=== PATIENT | male | born 1970 | race Caucasian/White ===

== ENCOUNTER 2017-07-26 12:19 | Inpatient (IN) | payer MEDICARE, OTHER ==
[~2017-07-26] VITALS: Ht 182.9 cm; Wt 74.4 kg
[2017-07-26] MEDS ORDERED: SOD CHLORIDE 0.9% 1,000 ML IV STA (14:49)
[2017-07-26] MEDS ORDERED: ONDANSETRON 4 MG INJ IV STA (14:49)
[2017-07-26] MEDS ORDERED: HYDROmorphONE 1 MG/ML SYG IV STA ×2 (14:49→17:37)
[2017-07-26] MEDS ORDERED: BACL20TA PO (14:50)
[2017-07-26] MEDS ORDERED: GABA-526 PO (14:50)
[2017-07-26] MEDS ORDERED: TOLT2CAP6 PO (14:51)
[2017-07-26] MEDS ORDERED: CEFTRIAXONE 1 GM/50 ML (PMX) 50 ML IVPB ONE (15:00)
[2017-07-26] MEDS ORDERED: VANCOMYCIN 1 GM (PMX) 250 ML IVPB SCH (15:00)
[2017-07-26 15:38] LABS: BASOPHILS % 0.4 % (0.0-2.0); EOSINOPHILS # 0.3 10^3/ul (0.0-0.5); EOSINOPHILS % 2.5 % (0.0-7.0); HEMOGLOBIN 16.3 g/dl (14.0-18.0); LYMPHOCYTES % 18.4 % (15.0-51.0); MEAN CORPUSCULAR HEMOGLOBIN 32.3 pg (29.0-33.0); MEAN CORPUSCULAR HGB CONC 33.3 g/dl (32.0-37.0); MEAN PLATELET VOLUME 9.9 fl (7.4-10.4); MONOCYTE # 0.8 10^3/ul (0.3-0.9); MONOCYTES % 7.6 % (0.0-11.0); NEUTROPHILS % 70.7 % (39.0-77.0); PLATELET COUNT 271 10^3/UL (140-415); RED BLOOD COUNT 5.05 10^6/ul (4.70-6.10); RED CELL DISTRIBUTION WIDTH 13.9 % (11.5-14.5); WHITE BLOOD COUNT 10.9 10^3/ul (4.8-10.8)
[2017-07-26 15:56] LABS: ALBUMIN 3.5 g/dl (3.3-4.9); ALBUMIN/GLOBULIN RATIO 1.06; BILIRUBIN,INDIRECT 0.2 mg/dl (0-1.1); BILIRUBIN,TOTAL 0.2 mg/dl (0.2-1.3); CALCIUM 9.1 mg/dl (8.4-10.2); CREATININE 0.52 mg/dl (0.61-1.24); POTASSIUM 3.2 mmol/L (3.5-5.1); TOTAL PROTEIN 6.8 g/dl (6.1-8.1)
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
[2017-07-26] MEDS ORDERED: SOD CHLORIDE 0.9% 100 ML ONE (18:13)
[2017-07-26] MEDS ORDERED: IOHEXOL 300MG/ML 150 ML BTL ONE (18:13)
--- NOTE | 2017-07-26 19:04 | RADRPT ---
PROCEDURE: IV contrast enhanced CT examination of the pelvis. CLINICAL INDICATION: Buttock abscess. TECHNIQUE: IV contrast enhanced CT examination of the pelvis, with axial, sagittal and coronal ref ormatted images. CTDI: 5.72 and DLP: 195.66 COMPARISON: None FINDINGS: Soft tissue edema with possible phlegmon is seen over the dorsal aspect of the base of the left infe rior pubic ramus, with small osseous erosions suspected at the posterior inferior left pubic ramus, perhaps representing osteomyelitis. MRI examination may be of further use. Soft tissue lesion measur es 56 x 45 x 35 mm. Differential considerations for this lesion include early abscess. Early soft tissue breakdown over the dorsal aspect of the coccyx, without CT evidence of osteomyelit is. Early soft tissue based may also be present at the dorsal aspect of proximal left femur. Remaining osseous structures are without evident acute fracture dislocation. Mural thickening in the urinary bladder are may represent a degree of cystitis, with small amount of intraluminal air. IMPRESSION: 1. Question osteomyelitis at the posterior inferior left pubic ramus. 2. Possible phlegmon in the dorsal soft tissues at the posterior inferior left pubic ramus. 3. Differential considerations include early abscess. 4. Early soft tissue breakdown over the dorsal aspect of the coccyx, without CT evidence of osteomye litis. 5. MRI examination may be of further use. RPTAT: [facility]U Physician Juan Date Time Electronically viewed and signed by Physician Juan on 07/26/2017 19:03 RS/
[2017-07-26] MEDS ORDERED: LORAZEPAM 2 MG INJ IV PRN (19:30)
[2017-07-26] MEDS ORDERED: VANCOMYCIN IV PER PHARMACY XX SCH (19:30)
[2017-07-26] MEDS ORDERED: NITROGLYCERIN (SL) 0.4 MG TAB SL PRN (19:30)
[2017-07-26] MEDS ORDERED: DOCUSATE SODIUM 100 MG CAP PO PRN (19:30)
[2017-07-26] MEDS ORDERED: ALBUTEROL/IPRATROPIUM (NEB) 3 ML AMP HHN PRN (19:30)
[2017-07-26] MEDS ORDERED: NACL 0.9% 3 ML SYG IV SCH (19:30)
[2017-07-26] MEDS ORDERED: ACETAMINOPHEN 325 MG TAB PO PRN ×2 (19:30)
[2017-07-26] MEDS ORDERED: MAGNESIUM HYDROXIDE 30ML CUP PO PRN (19:30)
[2017-07-26] MEDS ORDERED: morphine 2 MG INJ IV PRN (19:30)
[2017-07-26] MEDS ORDERED: ONDANSETRON 4 MG INJ IV PRN ×2 (19:30)
[2017-07-26] MEDS ORDERED: hydrALAzine 20 MG INJ IV PRN (19:30)
[2017-07-26 20:05] LABS: INR 0.88; PARTIAL THROMBOPLASTIN TIME 31.5 Sec (25.0-35.0); PROTIME 11.9 Sec (12.2-14.2); PT RATIO 0.9
[2017-07-26 21:30] VITALS: TEMP 98.7
[2017-07-26] MEDS ORDERED: HYDROCODONE/APAP (5/325) TAB ONE (22:28)
[2017-07-26] MEDS: HYDROCODONE/APAP (5/325) TAB PO PRN (22:32)
[2017-07-26] MEDS: BACLOFEN 10 MG TAB PO SCH (22:32)
[2017-07-26] MEDS: GABAPENTIN 300 MG CAP PO SCH (22:32)
[2017-07-26] MEDS: AZTREONAM 2 GM in SOD CHLORIDE 0.9% 100 ML IVPB SCH (22:34)
[2017-07-26] MEDS: SOD CHLORIDE 0.9% 1,000 ML IV SCH (22:35)
[2017-07-27] MEDS ORDERED: PIPER-TAZO 3.375 GM IV (PMX) 100 ML IVPB SCH
[2017-07-27] MEDS: VANCOMYCIN 1 GM in NS 250 ML IVPB SCH ×4 (00:04→23:06)
[2017-07-27 00:17] VITALS: Ht 182.9 cm; Wt 74.4 kg
[2017-07-27 00:50] VITALS: BP 103/56; RESP 18
[2017-07-27] MEDS: HYDROmorphONE 1 MG/ML SYG IV PRN ×6 (01:36→23:06)
[2017-07-27 02:08] VITALS: BP 109/74; RESP 16
[2017-07-27] MEDS ORDERED: PENDING SANTYL ORDER FOR WOUND CARE XX PRN (03:00)
[2017-07-27] MEDS: HYDROCODONE/APAP (5/325) TAB PO PRN ×3 (04:44→17:37)
[2017-07-27] MEDS: AZTREONAM 2 GM in SOD CHLORIDE 0.9% 100 ML IVPB SCH ×3 (05:19→22:03)
[2017-07-27] MEDS: SOD CHLORIDE 0.9% 1,000 ML IV SCH ×2 (05:24→15:24)
[2017-07-27 05:34] LABS: BASOPHIL # 0.1 10^3/ul (0.0-0.1); BASOPHILS % 0.7 % (0.0-2.0); EOSINOPHILS # 0.3 10^3/ul (0.0-0.5); EOSINOPHILS % 4.6 % (0.0-7.0); HEMOGLOBIN 14.7 g/dl (14.0-18.0); LYMPHOCYTES # 1.9 10^3/ul (0.8-2.9); LYMPHOCYTES % 25.5 % (15.0-51.0); MEAN CORPUSCULAR VOLUME 100.2 fl (82.0-101.0); MEAN PLATELET VOLUME 10.4 fl (7.4-10.4); MONOCYTE # 0.6 10^3/ul (0.3-0.9); MONOCYTES % 7.9 % (0.0-11.0); PLATELET COUNT 254 10^3/UL (140-415); RED BLOOD COUNT 4.59 10^6/ul (4.70-6.10); RED CELL DISTRIBUTION WIDTH 13.9 % (11.5-14.5); WHITE BLOOD COUNT 7.3 10^3/ul (4.8-10.8)
[2017-07-27 05:51] LABS: CHOL/HDL RATIO 2.2 RATIO
[2017-07-27 05:54] LABS: CALCIUM 8.5 mg/dl (8.4-10.2); CREATININE 0.56 mg/dl (0.61-1.24); MAGNESIUM 2.2 mg/dl (1.7-2.5); PHOSPHORUS 3.4 mg/dl (2.5-4.9); POTASSIUM 3.7 mmol/L (3.5-5.1)
[2017-07-27] MEDS ORDERED: PANTOPRAZOLE 40 MG INJ IV SCH (06:00)
[2017-07-27 06:20] LABS: THYROID STIMULATING HORMONE 2.18 MIU/L (0.465-4.680)
[2017-07-27] MEDS: COLLAGENASE 30 GM TUBE TOP PRN (06:40)
[2017-07-27 08:06] VITALS: BP 118/71; RESP 18
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
[2017-07-27] MEDS: BACLOFEN 10 MG TAB PO SCH ×2 (09:40→20:42)
[2017-07-27] MEDS: TOLTERODINE (SR) 2 MG CAP PO SCH (09:41)
[2017-07-27] MEDS: NICOTINE (21 MG/24 HR) PATCH TRANSDERM SCH (09:45)
[2017-07-27] MEDS: GABAPENTIN 300 MG CAP PO SCH ×4 (09:46→20:41)
[2017-07-27] MEDS: CHOLESTYRAMINE 4 GM PACKET PO SCH (11:35)
--- NOTE | 2017-07-27 12:49 | RADRPT ---
PROCEDURE: XR Abdomen. CLINICAL INDICATION: Obstructive uropathy. Gross hematuria. TECHNIQUE: AP supine abdomen x-ray. COMPARISON: CT scan of the pelvis dated 07/26/2017. FINDINGS: The bowel gas pattern is normal with no evidence of obstruction. Surgical clips are present in the right side of the abdomen and right upper quadrant. There is a jd nt in the gastroesophageal junction. An IVC filter is present with the superior tip at the upper L2 level. A metal foreign bodies overlying the line L3 level. There are no abnormal calcifications overlying the urinary tracts. The osseus structures are unremarkable. IMPRESSION: 1. Prior surgery. 2. No calcifications overlying the urinary tracts. 3. IVC filter. RPTAT: QQ .Sterling Flowers MD, MD Date Time Electronically viewed and signed by .Sterling Flowers MD, MD on 07/27/2017 12:48 .R/
[2017-07-27 12:56] LABS: ADD UMIC YES; UR ASCORBIC ACID NEGATIVE (NEGATIVE); UR BILIRUBIN (Dip) NEGATIVE (NEGATIVE); UR BLOOD (Dip) 3+ mg/dL (NEGATIVE); UR CLARITY CLEAR (CLEAR); UR COLOR YELLOW (YELLOW); UR GLUCOSE (Dip) NEGATIVE (NEGATIVE); UR KETONES (Dip) NEGATIVE (NEGATIVE); UR LEUKOCYTE ESTERASE (Dip) NEGATIVE Leu/ul (NEGATIVE); UR NITRITE (Dip) NEGATIVE (NEGATIVE); UR RBC 37 /HPF (0-5); UR SPECIFIC GRAVITY (Dip) 1.004 (1.003-1.030); UR TOTAL PROTEIN (Dip) NEGATIVE (NEGATIVE); UR UROBILINOGEN (Dip) NEGATIVE (NEGATIVE)
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
[2017-07-27] MEDS: COLLAGENASE 30 GM TUBE TOP SCH ×2 (15:00→15:02)
[2017-07-27 15:06] VITALS: BP 116/58; RESP 16
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
[2017-07-27 20:01] VITALS: BP 102/65; RESP 18
[2017-07-28] MEDS: SOD CHLORIDE 0.9% 1,000 ML IV SCH ×3 (01:24→17:14)
[2017-07-28 02:19] VITALS: BP 104/53; RESP 18
[2017-07-28] MEDS: HYDROCODONE/APAP (5/325) TAB PO PRN ×4 (02:36→23:05)
[2017-07-28] MEDS: HYDROmorphONE 1 MG/ML SYG IV PRN ×5 (04:12→20:58)
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
[2017-07-28] MEDS: PANTOPRAZOLE (EC) 40 MG TAB PO SCH (06:09)
[2017-07-28] MEDS: VANCOMYCIN 1 GM in NS 250 ML IVPB SCH (06:09)
[2017-07-28 06:48] LABS: BASOPHILS % 0.7 % (0.0-2.0); EOSINOPHILS # 0.4 10^3/ul (0.0-0.5); HEMATOCRIT 41.6 % (42.0-52.0); HEMOGLOBIN 13.6 g/dl (14.0-18.0); LYMPHOCYTES # 1.6 10^3/ul (0.8-2.9); LYMPHOCYTES % 26.9 % (15.0-51.0); MEAN CORPUSCULAR HGB CONC 32.7 g/dl (32.0-37.0); MEAN PLATELET VOLUME 10.2 fl (7.4-10.4); MONOCYTE # 0.5 10^3/ul (0.3-0.9); MONOCYTES % 8.5 % (0.0-11.0); NEUTROPHIL # 3.3 10^3/ul (1.6-7.5); NEUTROPHILS % 57.6 % (39.0-77.0); PLATELET COUNT 226 10^3/UL (140-415); RED BLOOD COUNT 4.12 10^6/ul (4.70-6.10); RED CELL DISTRIBUTION WIDTH 13.6 % (11.5-14.5); WHITE BLOOD COUNT 5.8 10^3/ul (4.8-10.8)
[2017-07-28 07:07] LABS: CALCIUM 8.6 mg/dl (8.4-10.2); CREATININE 0.53 mg/dl (0.61-1.24); POTASSIUM 3.9 mmol/L (3.5-5.1)
[2017-07-28 08:17] VITALS: BP 100/59; RESP 16
[2017-07-28] MEDS: CEFTRIAXONE 1 GM/50 ML (PMX) 50 ML IVPB SCH (08:30)
[2017-07-28] MEDS: CHOLESTYRAMINE 4 GM PACKET PO SCH (08:31)
[2017-07-28] MEDS: GABAPENTIN 300 MG CAP PO SCH ×4 (08:31→20:57)
[2017-07-28] MEDS: BACLOFEN 10 MG TAB PO SCH ×2 (08:31→20:57)
[2017-07-28] MEDS: NICOTINE (21 MG/24 HR) PATCH TRANSDERM SCH (08:31)
[2017-07-28] MEDS: TOLTERODINE (SR) 2 MG CAP PO SCH (08:31)
[2017-07-28] MEDS: COLLAGENASE 30 GM TUBE TOP SCH ×2 (08:34)
[2017-07-28] MEDS ORDERED: CHOLESTYRAMINE 4 GM PACKET PO SCH (09:00)
[2017-07-28] MEDS ORDERED: CEFTRIAXONE 1 GM INJ IVPB SCH (09:00)
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
[2017-07-28] MEDS: NA PHOSPHATE/BIPHOS 133 ML ENEMA PR PRN (12:57)
[2017-07-28] MEDS: ENOXAPARIN 40 MG/0.4 ML SYG SC SCH (13:00)
[2017-07-28 14:43] VITALS: BP 113/62; RESP 16
[2017-07-28] MEDS: SOD CHLORIDE 0.9% IVPB SCH ×2 (15:12→23:08)
[2017-07-28] MEDS: VANCOMYCIN IVPB SCH ×2 (15:12→23:08)
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
[2017-07-28 20:00] VITALS: BP 98/54; RESP 19
[2017-07-29] VITALS (15 sets, daily range): BP systolic 101–128; BP diastolic 58–78; PULSE 72–86; RESP 13–35
[2017-07-29] MEDS: HYDROmorphONE 1 MG/ML SYG IV PRN ×6 (01:10→23:00)
[2017-07-29] MEDS: HYDROCODONE/APAP (5/325) TAB PO PRN ×2 (04:58→16:49)
[2017-07-29] MEDS: PANTOPRAZOLE (EC) 40 MG TAB PO SCH (04:58)
[2017-07-29] MEDS: SOD CHLORIDE 0.9% IVPB SCH ×3 (06:08→22:22)
[2017-07-29] MEDS: VANCOMYCIN IVPB SCH ×3 (06:08→22:22)
[2017-07-29] MEDS ORDERED: DESFLURANE 15 MIN ONE (07:00)
[2017-07-29] MEDS: SOD CHLORIDE 0.9% 1,000 ML IV SCH ×2 (07:55→16:50)
[2017-07-29 08:18] LABS: BASOPHILS % 0.6 % (0.0-2.0); EOSINOPHILS # 0.3 10^3/ul (0.0-0.5); HEMATOCRIT 45.5 % (42.0-52.0); HEMOGLOBIN 14.8 g/dl (14.0-18.0); LYMPHOCYTES # 1.8 10^3/ul (0.8-2.9); LYMPHOCYTES % 26.6 % (15.0-51.0); MEAN CORPUSCULAR HEMOGLOBIN 33.4 pg (29.0-33.0); MEAN CORPUSCULAR HGB CONC 32.5 g/dl (32.0-37.0); MEAN CORPUSCULAR VOLUME 102.7 fl (82.0-101.0); MONOCYTE # 0.5 10^3/ul (0.3-0.9); MONOCYTES % 6.9 % (0.0-11.0); NEUTROPHIL # 4.1 10^3/ul (1.6-7.5); NEUTROPHILS % 60.5 % (39.0-77.0); PLATELET COUNT 248 10^3/UL (140-415); RED BLOOD COUNT 4.43 10^6/ul (4.70-6.10); RED CELL DISTRIBUTION WIDTH 13.7 % (11.5-14.5); WHITE BLOOD COUNT 6.8 10^3/ul (4.8-10.8)
[2017-07-29 08:37] LABS: CALCIUM 8.8 mg/dl (8.4-10.2); CREATININE 0.59 mg/dl (0.61-1.24); POTASSIUM 4.9 mmol/L (3.5-5.1)
[2017-07-29] MEDS: CHOLESTYRAMINE 4 GM PACKET PO SCH ×2 (09:00→14:05)
[2017-07-29] MEDS: GABAPENTIN 300 MG CAP PO SCH ×4 (09:00→21:21)
[2017-07-29] MEDS: TOLTERODINE (SR) 2 MG CAP PO SCH ×2 (09:00→14:05)
[2017-07-29] MEDS: ENOXAPARIN 40 MG/0.4 ML SYG SC SCH (09:00)
[2017-07-29] MEDS: BACLOFEN 10 MG TAB PO SCH ×3 (09:00→21:21)
[2017-07-29] MEDS: CEFTRIAXONE 1 GM/50 ML (PMX) 50 ML IVPB SCH (09:29)
--- NOTE | 2017-07-29 10:50 | PN ---
Date/Time of Note Date/Time of Note DATE: 07/29/17 TIME: 10:47 Assessment/Plan Lines/Catheters IV Catheter Type (from [facility]): Saline Lock Eastman in Place (from [facility]): Yes Assessment/Plan Chief Complaint/Hosp Course 1. Multiple wounds: sacral and left buttock 2/2 immobility: poss osteo -debridement & I&D today -local care -frequent turning and offloading -low airloss mattress -vitamin C/ short term zinc -nutritional optimization -iv abx 2. Hematuria: 2/2 trauma from eastman insertion; hx. of neurogenic bladder; s/p coude insertion by Dr. Ashraf no current bleed -close monitoring -per urology 3. Leukocytosis: /2 #1; normalized -as above 4. Paraplegia: wc bound -nutritional optimization -vit c -frequent turning and offloading Thank you, Problems: Subjective 24 Hr Interval Summary No f/c/n/v. No cp/sob/cough/sz/rash/marks/dizzy/visual or neuro changes. No dysuria. No bloating. Exam/Review of Systems Vital Signs Vitals Vital Signs Date Time Temp Pulse Resp B/P Pulse Ox O2 Delivery O2 Flow Rate FiO2 07/29/17 07:50 98.1 66 16 101/58 97 07/26/17 21:30 Room Air Intake and Output 07/28/17 07/28/17 07/29/17 15:00 23:00 07:00 Intake Total 300 ml 3000 ml 850 ml Output Total 3100 ml Balance 300 ml -100 ml 850 ml Exam Free Text/Dictation Constitutional: alert, oriented Psych: nl mood/affect Head: atraumatic, normocephalic Eyes: nl lids, nl sclera ENMT: mucosa pink and moist, nl nasal mucosa & septum Neck: non-tender, supple Respiratory: normal air movement Cardiovascular: nl pulses, regular rate and rhythm Gastrointestinal: other (rotund), soft, No distended Musculoskeletal: nl extremities to inspection, other (BLE atrophy) Extremities: normal pulses, No edema, No pitting pedal edema Neurological: nl mental status, nl speech, nl strength Skin: other (Left buttock wound with slough and min periwound erythema, sacrum wound with mod slough, min periwound erythema, min drainage from both sites, non malodorous, no fluctuant areas palpated) Results Result Diagram: 07/29/1780407/29/1705 ANUM COMBS MD Jul 29, 2017 10:50
[2017-07-29] MEDS ORDERED: FENTAnyl 50 MCG/ML VIAL ONE ×2 (11:22→12:30)
[2017-07-29] MEDS ORDERED: SUGAMMADEX SODIUM 200 MG/2 ML VIAL IV ONE (11:58)
[2017-07-29] MEDS ORDERED: LIDOCAINE 2% (SDV) 5 ML INJ ONE (11:58)
[2017-07-29] MEDS ORDERED: PROPOFOL 20 ML ONE (11:58)
[2017-07-29] MEDS ORDERED: SUCCINYLCHOLINE CHLORIDE 100 MG/5 ML SYG IV ONE (11:58)
[2017-07-29] MEDS ORDERED: ROCURONIUM 50 MG INJ ONE (11:58)
--- NOTE | 2017-07-29 12:09 | OPR ---
Date/Time of Note Date/Time of Note DATE: 07/29/17 TIME: 12:01 Operative Report Procedure Date: Jul 29, 2017 Preoperative Diagnosis Left ischial pressure decubitus ulcer with possible phlegmon/abscess and osteomyelitis Postoperative Diagnosis Left ischial pressure decubitus ulcer without abscess. 6 x 5 cm Operation Performed 1. Excisional debridement of left ischial subcutaneous pressure ulcer necrotic tissue 2. Needle aspiration of left ischium Surgeon Anum Combs MD Anesthesia Type: general (+ local) Anesthesiologist: ALYSON MARINA Estimated Blood Loss: 0 - 10 ml's Transfusion Required: no Specimen: none Grafts/Implants: none Tubes/Drains None Complications: no Pt Condition Post Procedure: stable Disposition: PACU Indications Per consult note. Risks include but are not limited to bleeding, infection, abscess, seroma, wound , fire, chronic pain, need for re-operations or further surgeries, LA, stroke, PE, DVT, pneumonia, organ failures, or even . Procedure Description Patient was brought in on his own bed to the OR. Placed in lateral decubitus position. All pressure points were well-padded. Patient is already on antibiotics. Anesthesia was instituted. Timeout was performed. He was prepped and draped in usual sterile fashion. Initially a 16-gauge needle was used to aspirate the left facial area and no abscess was identified. Decision was made not to cut deep into the tissue. Using electrocautery skin, and necrotic subcutaneous tissue were excised down to healthier tissue. Hemostasis was obtained. Wound was irrigated and covered with silver foam dressing. Patient was taken back to recovery room in stable condition. All counts were correct at the end of the operation 2. ANUM COMBS MD Jul 29, 2017 12:09
[2017-07-29] MEDS ORDERED: HYDROmorphONE (0.2 MG/ML) 10ML SYG IV PRN (12:30)
[2017-07-29] MEDS: FENTAnyl 50 MCG/ML VIAL IV PRN ×3 (12:35→12:51)
[2017-07-29] MEDS: NICOTINE (21 MG/24 HR) PATCH TRANSDERM SCH (14:05)
[2017-07-29] MEDS: COLLAGENASE 30 GM TUBE TOP SCH ×2 (16:01)
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
--- NOTE | 2017-07-29 16:28 | CONS ---
Date/Time of Note Date/Time of Note DATE: 07/29/17 TIME: 16:25 Assessment/Plan Assessment/Plan Chief Complaint/Hosp Course SUBJECTIVE DATA: No events overnight. No fevers. The patient is alert, feels good, looks comfortable. Denies pain. MICROBIOLOGY: Blood and urine culture negative. DIAGNOSTICS: CT of the pelvis revealed question osteomyelitis at the posterior inferior left pubic ramus, possible phlegmon and dorsal soft tissue at the posterior inferior left pubic ramus, an differential consideration includes early abscess. No evidence of osteomyelitis over the dorsal aspect of the coccyx. ANTIMICROBIALS: The patient is on IV vancomycin status post aztreonam. He is also on Rocephin. PHYSICAL EXAMINATION: GENERAL: Well-developed, paraplegic, middle-aged man who is alert, in no distress. HEENT: Head is atraumatic and normocephalic. Sclerae are anicteric. Buccal mucosa is pink. NECK: Supple. LUNGS: Chest rise is symmetrical. Breath sounds are clear. HEART: S1, S2. ABDOMEN: Soft. Bowel sounds are present. ASSESSMENT: 1. Left pubic ramus osteomyelitis with questionable abscess, s/p excisional debridement of left ischial wound with needle aspiration 2. Stage III left buttock decubitus ulcer. 3. 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 4. Tobacco use. 5. Constipation. PLAN: The patient remains stable. Continue present care, antibiotics, f/u cx' s. Anticipate treating with antibiotics for 6 weeks. DW staff/pt Problems: Consultation Date/Type/Reason Admit Date/Time Jul 26, 2017 at 19:19 Initial Consult Date 07/28/17 Type of Consultation: id Referring Provider: STEPHANIE HERRON MD Exam/Review of Systems Vital Signs Vitals Vital Signs Date Time Temp Pulse Resp B/P Pulse Ox O2 Delivery O2 Flow Rate FiO2 07/29/17 14:21 98.0 66 16 110/76 96 07/29/17 13:03 Room Air Intake and Output 07/28/17 07/28/17 07/29/17 15:00 23:00 07:00 Intake Total 300 ml 3000 ml 1450 ml Output Total 3100 ml Balance 300 ml -100 ml 1450 ml Results Result Diagram: 07/29/17 0805 07/29/17 0805 Results 24 hrs Laboratory Tests Test 07/29/17 08:05 07/29/17 14:04 White Blood Count 6.8 Red Blood Count 4.43 L Hemoglobin 14.8 Hematocrit 45.5 Mean Corpuscular Volume 102.7 H Mean Corpuscular Hemoglobin 33.4 H Mean Corpuscular Hemoglobin Concent 32.5 Red Cell Distribution Width 13.7 Platelet Count 248 Mean Platelet Volume 10.0 Neutrophils % 60.5 Lymphocytes % 26.6 Monocytes % 6.9 Eosinophils % 5.0 Basophils % 0.6 Nucleated Red Blood Cells % 0.0 Neutrophils # 4.1 Lymphocytes # 1.8 Monocytes # 0.5 Eosinophils # 0.3 Basophils # 0.0 Nucleated Red Blood Cells # 0.0 Sodium Level 142 Potassium Level 4.9 Chloride Level 106 Carbon Dioxide Level 35 H Anion Gap 6 L Blood Urea Nitrogen 7 Creatinine 0.59 L Glucose Level 85 # Calcium Level 8.8 Vancomycin Level Trough 13.6 Medications Medications Current Medications Ondansetron HCl (Zofran Inj) 4 mg Q6H PRN IV NAUSEA AND/OR VOMITING; Start 10/30 at 19:30 Acetaminophen (Tylenol Tab) 650 mg Q6H PRN PO PAIN LEVEL 1-3 OR FEVER; Start at 19:30 Acetaminophen/ Hydrocodone Bitart ([place] (5/325)) 1 tab Q6H PRN PO MODERATE PAIN LEVEL 4-6 Last administered on 07/29/17 04:58; Admin Dose 1 TAB; Start 10/30 at 19:30 Docusate Sodium (Colace) 100 mg Q12H PRN PO CONSTIPATION; Start 07/26/17 at 19: 30 Magnesium Hydroxide (Milk Of Mag) 30 ml DAILY PRN PO CONSTIPATION Last administered on 07/28/17 06:35; Admin Dose 30 ML; Start 07/26/17 at 19:30 Sodium Biphosphate/ Sodium Phosphate (Fleet Enema) 133 ml DAILY PRN [place] CONSTIPATION Last administered on 07/28/17 12:57; Admin Dose 133 ML; Start 10/30 at 19:30 Lorazepam 0.5 mg 0.5 mg Q6H PRN IV ANXIETY; Start 07/26/17 at 19:30 Sodium Chloride (NS) 1,000 ml @ 100 mls/hr Q10H IV Last administered on 07:55; Admin Dose 100 MLS/HR; Start 07/26/17 at 19:24 Vancomycin HCl (Vanco Iv Per Pharmacy) VANCOMYCIN PER PHARMACY NOTE XX ; Start 07/26/17 at 19:30 Hydralazine HCl (Apresoline) 10 mg Q6H PRN IV ELEVATED BLOOD PRESSURE; Start at 19:30 Nitroglycerin (Nitroglycerin (Sl Tab) 0.4 Mg) 1 tab Q5M PRN SL ANGINA; Start at 19:30 Baclofen (Lioresal) 20 mg BID PO Last administered on 07/29/17 14:05; Admin Dose 20 MG; Start 07/26/17 at 21:00 Gabapentin (Neurontin) 600 mg QID PO Last administered on 07/29/17 14:05; Admin Dose 600 MG; Start 07/26/17 at 21:00 Tolterodine Tartrate (Detrol La) 2 mg DAILY PO Last administered on 07/29/17 14:05; Admin Dose 2 MG; Start 07/27/17 at 09:00 Hydromorphone HCl (Dilaudid) 1 mg Q4H PRN IV PAIN Last administered on 14:10; Admin Dose 1 MG; Start 07/27/17 at 01:30 Collagenase (Santyl) 1 applic DAILY TOP Last administered on 07/29/17 16:01; Admin Dose 1 APPLIC; Start 07/27/17 at 09:00 Collagenase (Santyl) 1 applic PRN PRN TOP SOILED Last administered on 06:40; Admin Dose 1 APPLIC; Start 07/27/17 at 04:00 Pantoprazole (Protonix Tab) 40 mg DAILY@06 PO Last administered on 07/29/17 04 :58; Admin Dose 40 MG; Start 07/28/17 at 06:00 Nicotine (Nicoderm 21 Mg/ 24hr) 1 patch DAILY TRANSDERM Last administered on 14:05; Admin Dose 1 PATCH; Start 07/27/17 at 09:00 Cholestyramine Resin (Questran) 1 pkt DAILY PO Last administered on 07/29/17 14:05; Admin Dose 1 PKT; Start 07/27/17 at 11:00 Collagenase 1 applic 1 applic DAILY TOP Last administered on 07/29/17 16:01; Admin Dose 1 APPLIC; Start 07/27/17 at 14:30 Ceftriaxone Sodium (Rocephin) 50 ml @ 100 mls/hr DAILY IVPB Last administered on 07/29/17 09:29; Admin Dose 100 MLS/HR; Start 07/28/17 at 09:00; Stop at 12:00 Enoxaparin Sodium 40 mg 40 mg DAILY SC ; Start 07/28/17 at 13:00 Vancomycin HCl/ Sodium Chloride (Vancocin/NS) 150 ml @ 75 mls/hr Q8H IVPB Last administered on 07/29/17 16:01; Admin Dose 75 MLS/HR; Start 07/28/17 at 15 :00 IVANA REA NP Jul 29, 2017 16:28
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
[2017-07-30] MEDS: HYDROCODONE/APAP (5/325) TAB PO PRN ×4 (01:24→21:36)
[2017-07-30 02:05] VITALS: BP 105/61; RESP 18
[2017-07-30] MEDS: SOD CHLORIDE 0.9% 1,000 ML IV SCH ×3 (03:24→23:24)
[2017-07-30] MEDS: HYDROmorphONE 1 MG/ML SYG IV PRN ×5 (03:31→20:21)
[2017-07-30] MEDS: PANTOPRAZOLE (EC) 40 MG TAB PO SCH (05:27)
[2017-07-30] MEDS: VANCOMYCIN IVPB SCH ×3 (06:21→23:39)
[2017-07-30] MEDS: SOD CHLORIDE 0.9% IVPB SCH ×3 (06:21→23:39)
[2017-07-30] MEDS: TOLTERODINE (SR) 2 MG CAP PO SCH (07:46)
[2017-07-30] MEDS: CHOLESTYRAMINE 4 GM PACKET PO SCH (07:46)
[2017-07-30] MEDS: GABAPENTIN 300 MG CAP PO SCH ×4 (07:46→20:23)
[2017-07-30] MEDS: NICOTINE (21 MG/24 HR) PATCH TRANSDERM SCH (07:46)
[2017-07-30] MEDS: BACLOFEN 10 MG TAB PO SCH ×2 (07:46→20:24)
[2017-07-30] MEDS: CEFTRIAXONE 1 GM/50 ML (PMX) 50 ML IVPB SCH (07:47)
[2017-07-30 08:00] VITALS: BP 122/81; RESP 19
[2017-07-30 08:46] LABS: BASOPHIL # 0.1 10^3/ul (0.0-0.1); BASOPHILS % 0.6 % (0.0-2.0); EOSINOPHILS # 0.4 10^3/ul (0.0-0.5); EOSINOPHILS % 4.5 % (0.0-7.0); HEMATOCRIT 49.1 % (42.0-52.0); HEMOGLOBIN 16.3 g/dl (14.0-18.0); LYMPHOCYTES # 2.2 10^3/ul (0.8-2.9); LYMPHOCYTES % 26.2 % (15.0-51.0); MEAN CORPUSCULAR HEMOGLOBIN 33.7 pg (29.0-33.0); MEAN CORPUSCULAR HGB CONC 33.2 g/dl (32.0-37.0); MEAN CORPUSCULAR VOLUME 101.4 fl (82.0-101.0); MONOCYTE # 0.7 10^3/ul (0.3-0.9); NEUTROPHILS % 60.5 % (39.0-77.0); PLATELET COUNT 259 10^3/UL (140-415); RED BLOOD COUNT 4.84 10^6/ul (4.70-6.10); RED CELL DISTRIBUTION WIDTH 13.8 % (11.5-14.5); WHITE BLOOD COUNT 8.2 10^3/ul (4.8-10.8)
[2017-07-30] MEDS: ENOXAPARIN 40 MG/0.4 ML SYG SC SCH (09:04)
[2017-07-30] MEDS: COLLAGENASE 30 GM TUBE TOP SCH ×2 (09:05)
[2017-07-30 09:08] LABS: CREATININE 0.59 mg/dl (0.61-1.24); POTASSIUM 4.3 mmol/L (3.5-5.1)
--- NOTE | 2017-07-30 12:29 | PN ---
Date/Time of Note Date/Time of Note DATE: 07/30/17 TIME: 12:27 Assessment/Plan Lines/Catheters IV Catheter Type (from [facility]): Peripheral IV Eastman in Place (from [facility]): Yes Assessment/Plan Chief Complaint/Hosp Course 1. Multiple wounds: sacral and left buttock 2/2 immobility s/p debridement 07/29 : probable recurrent osteo -local care -frequent turning and offloading -low airloss mattress -vitamin C/ short term zinc -nutritional optimization -intermediate project manager iv abx per ID -will consider HBO 2. Hematuria: 2/2 trauma from eastman insertion; hx. of neurogenic bladder; s/p coude insertion by Dr. Ashraf no current bleed -close monitoring -per urology 3. Leukocytosis: 2/2 #1; normalized -as above 4. Paraplegia: wc bound -nutritional optimization -vit c -frequent turning and offloading Thank you, Problems: Subjective 24 Hr Interval Summary s/p Excisional debridement and needle aspiration without identification of abscess 07/29. Min pain. No f/c/n/v. No cp/sob/cough/sz/rash/marks/dizzy/visual or neuro changes. No dysuria. No bloating. Exam/Review of Systems Vital Signs Vitals Vital Signs Date Time Temp Pulse Resp B/P Pulse Ox O2 Delivery O2 Flow Rate FiO2 07/30/17 08:00 97.5 61 19 122/81 98 07/29/17 13:03 Room Air Intake and Output 07/29/17 07/29/17 07/30/17 15:00 23:00 07:00 Intake Total 200 ml 1150 ml 2220 ml Output Total 1701 ml 4500 ml Balance -1501 ml 1150 ml -2280 ml Exam Free Text/Dictation Constitutional: alert, oriented Psych: nl mood/affect Head: atraumatic, normocephalic Eyes: nl lids, nl sclera ENMT: mucosa pink and moist, nl nasal mucosa & septum Neck: non-tender, supple Respiratory: normal air movement Cardiovascular: nl pulses, regular rate and rhythm Gastrointestinal: other (rotund), soft, No distended Musculoskeletal: nl extremities to inspection, other (BLE atrophy) Extremities: normal pulses, No edema, No pitting pedal edema Neurological: nl mental status, nl speech, nl strength Skin: other (Left buttock wound) Results Result Diagram: 07/30/17 0830 07/30/17 0830 ANUM COMBS MD Jul 30, 2017 12:29
[2017-07-30 14:00] VITALS: BP 99/55; RESP 20
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
--- NOTE | 2017-07-30 19:41 | CONS ---
Date/Time of Note Date/Time of Note DATE: 07/30/17 TIME: 19:38 Assessment/Plan Assessment/Plan Chief Complaint/Hosp Course ID PROGRESS NOTE CURRENT ABX: =>Vanco IV + Ceftriaxone 24H INTERVAL SUMMARY * Clinically stable, calm, resting comfortable, no fevers * DC Plan in process EXAM GEN: VSS, NAD HEENT: Unremarkable NECK: supple CVS: RRR CHEST: Equal chest rise bilaterally without dyspnea on observation ABD: Soft, NT, EXT: warm SKIN: No rash, no diaphoresis ID ASSESSMENT 46 yo M admit with: 1. Left pubic ramus osteomyelitis with questionable abscess, * s/p excisional debridement of left ischial wound with needle aspiration * Blood Cx (-) 2. Stage III left buttock decubitus ulcer. 3. 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 4. Tobacco use. 5. Constipation. (-)MRSA Nares ABX ALLERGY: Amoxicillin/Clavulanic Acid CURRENT ABX: =>Vanco IV + Ceftriaxone ID RECOMMENDATIONS 1. DC Plan in process -> continue IV ABX x 6 weeks total 2. Smoking cessation strongly advocated . Problems: Consultation Date/Type/Reason Admit Date/Time Jul 26, 2017 at 19:19 Initial Consult Date 07/28/17 Type of Consultation: id Referring Provider: STEPHANIE HERRON MD Exam/Review of Systems Vital Signs Vitals Vital Signs Date Time Temp Pulse Resp B/P Pulse Ox O2 Delivery O2 Flow Rate FiO2 07/30/17 14:00 98.2 69 20 99/55 97 07/29/17 13:03 Room Air Intake and Output 07/29/17 07/29/17 07/30/17 15:00 23:00 07:00 Intake Total 200 ml 1150 ml 2220 ml Output Total 1701 ml 4500 ml Balance -1501 ml 1150 ml -2280 ml Results Result Diagram: 07/30/17 0830 07/30/17 0830 Results 24 hrs Laboratory Tests Test 07/30/17 08:30 White Blood Count 8.2 # Red Blood Count 4.84 Hemoglobin 16.3 Hematocrit 49.1 Mean Corpuscular Volume 101.4 H Mean Corpuscular Hemoglobin 33.7 H Mean Corpuscular Hemoglobin Concent 33.2 Red Cell Distribution Width 13.8 Platelet Count 259 Mean Platelet Volume 10.0 Neutrophils % 60.5 Lymphocytes % 26.2 Monocytes % 8.0 Eosinophils % 4.5 Basophils % 0.6 Nucleated Red Blood Cells % 0.0 Neutrophils # 5.0 Lymphocytes # 2.2 Monocytes # 0.7 Eosinophils # 0.4 Basophils # 0.1 Nucleated Red Blood Cells # 0.0 Sodium Level 141 Potassium Level 4.3 Chloride Level 105 Carbon Dioxide Level 35 H Anion Gap 5 L Blood Urea Nitrogen 6 L Creatinine 0.59 L Glucose Level 87 Calcium Level 9.0 Medications Medications Current Medications Ondansetron HCl (Zofran Inj) 4 mg Q6H PRN IV NAUSEA AND/OR VOMITING; Start 10/30 at 19:30 Acetaminophen (Tylenol Tab) 650 mg Q6H PRN PO PAIN LEVEL 1-3 OR FEVER; Start at 19:30 Acetaminophen/ Hydrocodone Bitart ([place] (5/325)) 1 tab Q6H PRN PO MODERATE PAIN LEVEL 4-6 Last administered on 07/30/17 14:39; Admin Dose 1 TAB; Start 10/30 at 19:30 Docusate Sodium (Colace) 100 mg Q12H PRN PO CONSTIPATION; Start 07/26/17 at 19: 30 Magnesium Hydroxide (Milk Of Mag) 30 ml DAILY PRN PO CONSTIPATION Last administered on 07/28/17 06:35; Admin Dose 30 ML; Start 07/26/17 at 19:30 Sodium Biphosphate/ Sodium Phosphate (Fleet Enema) 133 ml DAILY PRN [place] CONSTIPATION Last administered on 07/28/17 12:57; Admin Dose 133 ML; Start 10/30 at 19:30 Lorazepam 0.5 mg 0.5 mg Q6H PRN IV ANXIETY; Start 07/26/17 at 19:30 Sodium Chloride (NS) 1,000 ml @ 100 mls/hr Q10H IV Last administered on 14:39; Admin Dose 100 MLS/HR; Start 07/26/17 at 19:24 Vancomycin HCl (Vanco Iv Per Pharmacy) VANCOMYCIN PER PHARMACY NOTE XX ; Start 07/26/17 at 19:30 Hydralazine HCl (Apresoline) 10 mg Q6H PRN IV ELEVATED BLOOD PRESSURE; Start at 19:30 Nitroglycerin (Nitroglycerin (Sl Tab) 0.4 Mg) 1 tab Q5M PRN SL ANGINA; Start at 19:30 Baclofen (Lioresal) 20 mg BID PO Last administered on 07/30/17 07:46; Admin Dose 20 MG; Start 07/26/17 at 21:00 Gabapentin (Neurontin) 600 mg QID PO Last administered on 07/30/17 17:46; Admin Dose 600 MG; Start 07/26/17 at 21:00 Tolterodine Tartrate (Detrol La) 2 mg DAILY PO Last administered on 07/30/17 07:46; Admin Dose 2 MG; Start 07/27/17 at 09:00 Hydromorphone HCl (Dilaudid) 1 mg Q4H PRN IV PAIN Last administered on 15:35; Admin Dose 1 MG; Start 07/27/17 at 01:30 Collagenase (Santyl) 1 applic DAILY TOP Last administered on 07/30/17 09:05; Admin Dose 1 APPLIC; Start 07/27/17 at 09:00 Collagenase (Santyl) 1 applic PRN PRN [place] SOILED Last administered on 06:40; Admin Dose 1 APPLIC; Start 07/27/17 at 04:00 Pantoprazole (Protonix Tab) 40 mg DAILY@06 PO Last administered on 07/30/17 05 :27; Admin Dose 40 MG; Start 07/28/17 at 06:00 Nicotine (Nicoderm 21 Mg/ 24hr) 1 patch DAILY TRANSDERM Last administered on 07:46; Admin Dose 1 PATCH; Start 07/27/17 at 09:00 Cholestyramine Resin (Questran) 1 pkt DAILY PO Last administered on 07/30/17 07:46; Admin Dose 1 PKT; Start 07/27/17 at 11:00 Collagenase 1 applic 1 applic DAILY TOP Last administered on 07/30/17 09:05; Admin Dose 1 APPLIC; Start 07/27/17 at 14:30 Ceftriaxone Sodium (Rocephin) 50 ml @ 100 mls/hr DAILY IVPB Last administered on 07/30/17 07:47; Admin Dose 100 MLS/HR; Start 07/28/17 at 09:00; Stop at 12:00 Enoxaparin Sodium 40 mg 40 mg DAILY SC Last administered on 9/16/17at 09:04; Admin Dose 40 MG; Start 07/28/17 at 13:00 Vancomycin HCl/ Sodium Chloride (Vancocin/NS) 150 ml @ 75 mls/hr Q8H IVPB Last administered on 07/30/17t 15:35; Admin Dose 75 MLS/HR; Start 07/28/17 at 15 :00 Sodium Hypochlorite (Dakin'S (1/4 Strength)) 1 applic DAILY IRR ; Start at 09:00 BETSEY ROWE NP Jul 30, 2017 19:41
[2017-07-30 20:00] VITALS: BP 102/58; RESP 18
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
[2017-07-31 02:00] VITALS: BP 117/82; RESP 19
[2017-07-31] MEDS: HYDROmorphONE 1 MG/ML SYG IV PRN ×7 (02:42→22:33)
[2017-07-31] MEDS: HYDROCODONE/APAP (5/325) TAB PO PRN (05:10)
[2017-07-31] MEDS: PANTOPRAZOLE (EC) 40 MG TAB PO SCH (05:10)
[2017-07-31] MEDS: SOD CHLORIDE 0.9% IVPB SCH ×3 (06:34→23:07)
[2017-07-31] MEDS: VANCOMYCIN IVPB SCH ×3 (06:34→23:07)
[2017-07-31 07:52] VITALS: BP 121/75; RESP 18
[2017-07-31] MEDS: COLLAGENASE 30 GM TUBE TOP SCH ×3 (09:00→09:50)
[2017-07-31] MEDS: SOD CHLORIDE 0.9% 1,000 ML IV SCH ×2 (09:24→12:30)
[2017-07-31 09:49] LABS: BASOPHIL # 0.1 10^3/ul (0.0-0.1); BASOPHILS % 0.9 % (0.0-2.0); EOSINOPHILS # 0.5 10^3/ul (0.0-0.5); HEMATOCRIT 48.2 % (42.0-52.0); LYMPHOCYTES # 1.8 10^3/ul (0.8-2.9); LYMPHOCYTES % 22.3 % (15.0-51.0); MEAN CORPUSCULAR HEMOGLOBIN 33.2 pg (29.0-33.0); MEAN CORPUSCULAR HGB CONC 33.2 g/dl (32.0-37.0); MEAN PLATELET VOLUME 9.9 fl (7.4-10.4); MONOCYTE # 0.6 10^3/ul (0.3-0.9); MONOCYTES % 7.9 % (0.0-11.0); NEUTROPHILS % 62.5 % (39.0-77.0); PLATELET COUNT 238 10^3/UL (140-415); RED BLOOD COUNT 4.82 10^6/ul (4.70-6.10); RED CELL DISTRIBUTION WIDTH 13.7 % (11.5-14.5)
[2017-07-31] MEDS: CEFTRIAXONE 1 GM/50 ML (PMX) 50 ML IVPB SCH (09:49)
[2017-07-31] MEDS: TOLTERODINE (SR) 2 MG CAP PO SCH (09:50)
[2017-07-31] MEDS: BACLOFEN 10 MG TAB PO SCH ×2 (09:50→20:07)
[2017-07-31] MEDS: CHOLESTYRAMINE 4 GM PACKET PO SCH (09:50)
[2017-07-31] MEDS: NICOTINE (21 MG/24 HR) PATCH TRANSDERM SCH (09:50)
[2017-07-31] MEDS: GABAPENTIN 300 MG CAP PO SCH ×4 (09:50→20:07)
[2017-07-31] MEDS: ENOXAPARIN 40 MG/0.4 ML SYG SC SCH (09:52)
[2017-07-31 10:06] LABS: CREATININE 0.62 mg/dl (0.61-1.24); POTASSIUM 4.5 mmol/L (3.5-5.1)
[2017-07-31] MEDS: SODIUM HYPOCHLORITE 0.125% 473 ML BTL IRR SCH (11:21)
[2017-07-31] MEDS: HYDROCODONE/APAP (10/325) TAB PO PRN ×3 (12:29→21:00)
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
--- NOTE | 2017-07-31 14:26 | PN ---
Date/Time of Note Date/Time of Note DATE: 07/31/17 TIME: 14:25 Assessment/Plan Lines/Catheters IV Catheter Type (from [facility]): Peripheral IV Eastman in Place (from [facility]): Yes Assessment/Plan Chief Complaint/Hosp Course 1. 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 Hematuria: 2/2 trauma from eastman insertion; hx. of neurogenic bladder; s/p coude insertion by Dr. Ashraf no current bleed -close monitoring -per urology 3. Leukocytosis: 2/2 #1; normalized -as above 4. Paraplegia: wc bound -nutritional optimization -vit c -frequent turning and offloading Thank you, Problems: Subjective 24 Hr Interval Summary s/p Excisional debridement and needle aspiration without identification of abscess 07/29. Min pain. No f/c/n/v. No cp/sob/cough/sz/rash/marks/dizzy/visual or neuro changes. No dysuria. No bloating. Exam/Review of Systems Vital Signs Vitals Vital Signs Date Time Temp Pulse Resp B/P Pulse Ox O2 Delivery O2 Flow Rate FiO2 07/31/17 07:52 98.0 73 18 121/75 97 07/29/17 13:03 Room Air Intake and Output 07/30/17 07/30/17 07/31/17 15:00 23:00 07:00 Intake Total 1200 ml 1830 ml 2030 ml Output Total 3900 ml 4460 ml Balance 1200 ml -2070 ml -2430 ml Exam Free Text/Dictation Constitutional: alert, oriented Psych: nl mood/affect Head: atraumatic, normocephalic Eyes: nl lids, nl sclera ENMT: mucosa pink and moist, nl nasal mucosa & septum Neck: non-tender, supple Respiratory: normal air movement Cardiovascular: nl pulses, regular rate and rhythm Gastrointestinal: other (rotund), soft, No distended Musculoskeletal: nl extremities to inspection, other (BLE atrophy) Extremities: normal pulses, No edema, No pitting pedal edema Neurological: nl mental status, nl speech, nl strength Skin: other (Left buttock wound) Results Result Diagram: 07/31/17 0905 07/31/17 0905 ANUM COMBS MD Jul 31, 2017 14:26
[2017-07-31 14:37] VITALS: BP 111/68; RESP 18
[2017-07-31 20:00] VITALS: BP 127/82; RESP 20
[2017-08-01] MEDS: HYDROCODONE/APAP (10/325) TAB PO PRN ×5 (00:23→21:02)
[2017-08-01] MEDS: HYDROmorphONE 1 MG/ML SYG IV PRN ×9 (01:17→19:49)
[2017-08-01 02:00] VITALS: BP 91/50; RESP 19
[2017-08-01] MEDS: SOD CHLORIDE 0.9% 1,000 ML IV SCH ×3 (03:11→19:59)
[2017-08-01] MEDS: PANTOPRAZOLE (EC) 40 MG TAB PO SCH (05:43)
[2017-08-01] MEDS: SODIUM HYPOCHLORITE 0.125% 473 ML BTL IRR SCH (06:28)
[2017-08-01] MEDS: COLLAGENASE 30 GM TUBE TOP PRN (06:29)
[2017-08-01] MEDS: SOD CHLORIDE 0.9% IVPB SCH ×2 (06:41→14:29)
[2017-08-01] MEDS: VANCOMYCIN IVPB SCH ×2 (06:41→14:29)
[2017-08-01 08:18] LABS: BASOPHIL # 0.1 10^3/ul (0.0-0.1); BASOPHILS % 0.8 % (0.0-2.0); EOSINOPHILS # 0.5 10^3/ul (0.0-0.5); EOSINOPHILS % 5.3 % (0.0-7.0); HEMATOCRIT 48.1 % (42.0-52.0); HEMOGLOBIN 15.8 g/dl (14.0-18.0); LYMPHOCYTES # 2.2 10^3/ul (0.8-2.9); LYMPHOCYTES % 25.8 % (15.0-51.0); MEAN CORPUSCULAR HEMOGLOBIN 32.8 pg (29.0-33.0); MEAN CORPUSCULAR HGB CONC 32.8 g/dl (32.0-37.0); MEAN PLATELET VOLUME 9.7 fl (7.4-10.4); MONOCYTE # 0.7 10^3/ul (0.3-0.9); MONOCYTES % 7.9 % (0.0-11.0); NEUTROPHIL # 5.1 10^3/ul (1.6-7.5); NEUTROPHILS % 59.7 % (39.0-77.0); PLATELET COUNT 257 10^3/UL (140-415); RED BLOOD COUNT 4.81 10^6/ul (4.70-6.10); RED CELL DISTRIBUTION WIDTH 13.3 % (11.5-14.5); WHITE BLOOD COUNT 8.6 10^3/ul (4.8-10.8)
[2017-08-01 08:23] VITALS: BP 119/78; RESP 16
[2017-08-01 08:42] LABS: CALCIUM 9.3 mg/dl (8.4-10.2); CREATININE 0.62 mg/dl (0.61-1.24); POTASSIUM 4.2 mmol/L (3.5-5.1)
[2017-08-01] MEDS: GABAPENTIN 300 MG CAP PO SCH ×4 (08:49→19:50)
[2017-08-01] MEDS: CHOLESTYRAMINE 4 GM PACKET PO SCH (08:49)
[2017-08-01] MEDS: COLLAGENASE 30 GM TUBE TOP SCH ×2 (08:49)
[2017-08-01] MEDS: CEFTRIAXONE 1 GM/50 ML (PMX) 50 ML IVPB SCH (08:49)
[2017-08-01] MEDS: BACLOFEN 10 MG TAB PO SCH ×2 (08:49→19:50)
[2017-08-01] MEDS: NICOTINE (21 MG/24 HR) PATCH TRANSDERM SCH (08:50)
[2017-08-01] MEDS: ENOXAPARIN 40 MG/0.4 ML SYG SC SCH (08:53)
[2017-08-01] MEDS: TOLTERODINE (SR) 2 MG CAP PO SCH (12:37)
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
--- NOTE | 2017-08-01 13:02 | PN ---
Date/Time of Note Date/Time of Note DATE: 08/01/17 TIME: 12:32 Assessment/Plan Lines/Catheters IV Catheter Type (from Nrs): Peripheral IV Eastman in Place (from Nrs): Yes Assessment/Plan Chief Complaint/Hosp Course 1. 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 Hematuria: 2/2 trauma from eastman insertion; hx. of neurogenic bladder; s/p coude insertion by Dr. Ashraf no current bleed -close monitoring -per urology 3. Paraplegia: wc bound -nutritional optimization -vit c -frequent turning and offloading Thank you. Patient seen and examined in collaboration with Dr. Alex Andrews. Problems: Subjective 24 Hr Interval Summary Feels well. No c/o pain, wound discomfort, excessive wound drainage, fevers, chills, sob, cp, palpitations, n/v/d/dysuria. Anxious about aftercare when discharged. Exam/Review of Systems Vital Signs Vitals Vital Signs Date Time Temp Pulse Resp B/P Pulse Ox O2 Delivery O2 Flow Rate FiO2 08/01/17 08:23 97.9 65 16 119/78 97 07/29/17 13:03 Room Air Intake and Output 07/31/17 07/31/17 08/01/17 15:00 23:00 07:00 Intake Total 600 ml 3550 ml 2125 ml Output Total 4300 ml 4900 ml Balance 600 ml -750 ml -2775 ml Exam Free Text/Dictation Constitutional: alert, oriented Psych: nl mood/affect Head: atraumatic, normocephalic Eyes: nl lids, nl sclera ENMT: mucosa pink and moist, nl nasal mucosa & septum Neck: non-tender, supple Respiratory: normal air movement Cardiovascular: nl pulses, regular rate and rhythm Gastrointestinal: other (rotund), soft, No distended Musculoskeletal: nl extremities to inspection, other (BLE atrophy) Extremities: normal pulses, No edema, No pitting pedal edema Neurological: nl mental status, nl speech, nl strength Skin: other (Left buttock wound/sacrum: min slough, min drainage Results Result Diagram: 08/01/17 0735 08/01/17 0735 GRIS TRINIDAD NP Aug 01, 2017 12:44
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
[2017-08-01 14:48] VITALS: BP 124/76; RESP 18
[2017-08-01 20:00] VITALS: BP 106/69; RESP 19
[2017-08-01] MEDS: VANCOMYCIN 750 MG in SOD CHLORIDE 0.9% 150 ML IVPB SCH (23:49)
[2017-08-02 02:00] VITALS: BP 112/69; RESP 19
[2017-08-02] MEDS: HYDROmorphONE 1 MG/ML SYG IV PRN ×8 (02:21→22:23)
[2017-08-02] MEDS: HYDROCODONE/APAP (10/325) TAB PO PRN ×5 (04:22→23:41)
[2017-08-02] MEDS: PANTOPRAZOLE (EC) 40 MG TAB PO SCH (06:08)
[2017-08-02] MEDS: COLLAGENASE 30 GM TUBE TOP PRN (06:13)
[2017-08-02] MEDS: SODIUM HYPOCHLORITE 0.125% 473 ML BTL IRR SCH (06:13)
[2017-08-02 06:46] LABS: MAGNESIUM 2.3 mg/dl (1.7-2.5)
[2017-08-02 07:02] LABS: BASOPHIL # 0.1 10^3/ul (0.0-0.1); BASOPHILS % 0.7 % (0.0-2.0); EOSINOPHILS # 0.4 10^3/ul (0.0-0.5); EOSINOPHILS % 5.3 % (0.0-7.0); HEMATOCRIT 46.6 % (42.0-52.0); HEMOGLOBIN 15.1 g/dl (14.0-18.0); LYMPHOCYTES # 2.1 10^3/ul (0.8-2.9); LYMPHOCYTES % 25.6 % (15.0-51.0); MEAN CORPUSCULAR HEMOGLOBIN 33.2 pg (29.0-33.0); MEAN CORPUSCULAR HGB CONC 32.4 g/dl (32.0-37.0); MEAN CORPUSCULAR VOLUME 102.4 fl (82.0-101.0); MEAN PLATELET VOLUME 10.3 fl (7.4-10.4); MONOCYTE # 0.7 10^3/ul (0.3-0.9); MONOCYTES % 8.1 % (0.0-11.0); NEUTROPHIL # 4.9 10^3/ul (1.6-7.5); NEUTROPHILS % 60.1 % (39.0-77.0); PLATELET COUNT 268 10^3/UL (140-415); RED BLOOD COUNT 4.55 10^6/ul (4.70-6.10); RED CELL DISTRIBUTION WIDTH 13.5 % (11.5-14.5); WHITE BLOOD COUNT 8.1 10^3/ul (4.8-10.8)
[2017-08-02 07:05] LABS: CALCIUM 9.2 mg/dl (8.4-10.2); CREATININE 0.7 mg/dl (0.61-1.24); POTASSIUM 5.1 mmol/L (3.5-5.1)
[2017-08-02 07:58] VITALS: BP 132/82; RESP 18
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
[2017-08-02] MEDS: NICOTINE (21 MG/24 HR) PATCH TRANSDERM SCH (08:40)
[2017-08-02] MEDS: TOLTERODINE (SR) 2 MG CAP PO SCH (08:41)
[2017-08-02] MEDS: BACLOFEN 10 MG TAB PO SCH ×2 (08:41→20:49)
[2017-08-02] MEDS: GABAPENTIN 300 MG CAP PO SCH ×4 (08:41→20:49)
[2017-08-02] MEDS: CEFTRIAXONE 1 GM/50 ML (PMX) 50 ML IVPB SCH (08:41)
[2017-08-02] MEDS: CHOLESTYRAMINE 4 GM PACKET PO SCH (08:42)
[2017-08-02] MEDS: ENOXAPARIN 40 MG/0.4 ML SYG SC SCH (08:43)
[2017-08-02] MEDS: SOD CHLORIDE 0.9% 1,000 ML IV SCH ×2 (08:57→22:22)
[2017-08-02] MEDS: COLLAGENASE 30 GM TUBE TOP SCH ×2 (09:00)
[2017-08-02] MEDS: VANCOMYCIN 750 MG in SOD CHLORIDE 0.9% 150 ML IVPB SCH ×3 (09:48→23:42)
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
--- NOTE | 2017-08-02 14:31 | CONS ---
Date/Time of Note Date/Time of Note DATE: 08/02/17 TIME: 14:30 Assessment/Plan Assessment/Plan Chief Complaint/Hosp Course SUBJECTIVE DATA: No events overnight. No fevers. The patient is alert, feels good, looks comfortable. Denies pain. MICROBIOLOGY: Blood and urine culture negative. DIAGNOSTICS: CT of the pelvis revealed question osteomyelitis at the posterior inferior left pubic ramus, possible phlegmon and dorsal soft tissue at the posterior inferior left pubic ramus, an differential consideration includes early abscess. No evidence of osteomyelitis over the dorsal aspect of the coccyx. ANTIMICROBIALS: The patient is on IV vancomycin status post aztreonam. He is also on Rocephin. PHYSICAL EXAMINATION: GENERAL: Well-developed, paraplegic, middle-aged man who is alert, in no distress. HEENT: Head is atraumatic and normocephalic. Sclerae are anicteric. Buccal mucosa is pink. NECK: Supple. LUNGS: Chest rise is symmetrical. Breath sounds are clear. HEART: S1, S2. ABDOMEN: Soft. Bowel sounds are present. ASSESSMENT: 1. Left pubic ramus osteomyelitis with questionable abscess, s/p excisional debridement of left ischial wound with needle aspiration 2. Stage III left buttock decubitus ulcer. 3. 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 4. Tobacco use. 5. Constipation. PLAN: The patient remains stable. Continue present care, anticipate treating with antibiotics for 6 weeks. DW staff/pt Problems: Consultation Date/Type/Reason Admit Date/Time Jul 26, 2017 at 19:19 Initial Consult Date 07/28/17 Type of Consultation: id Referring Provider: STEPHANIE HERRON MD Exam/Review of Systems Vital Signs Vitals Vital Signs Date Time Temp Pulse Resp B/P Pulse Ox O2 Delivery O2 Flow Rate FiO2 08/02/17 07:58 98.4 67 18 132/82 96 07/29/17 13:03 Room Air Intake and Output 08/01/17 08/01/17 08/02/17 15:00 23:00 07:00 Intake Total 600 ml 2050 ml 2530 ml Output Total 3750 ml 4120 ml Balance 600 ml -1700 ml -1590 ml Results Result Diagram: 08/02/17 0440 08/02/17 0440 Results 24 hrs Laboratory Tests Test 08/02/17 04:40 White Blood Count 8.1 Red Blood Count 4.55 L Hemoglobin 15.1 Hematocrit 46.6 Mean Corpuscular Volume 102.4 H Mean Corpuscular Hemoglobin 33.2 H Mean Corpuscular Hemoglobin Concent 32.4 Red Cell Distribution Width 13.5 Platelet Count 268 Mean Platelet Volume 10.3 Neutrophils % 60.1 Lymphocytes % 25.6 Monocytes % 8.1 Eosinophils % 5.3 Basophils % 0.7 Nucleated Red Blood Cells % 0.0 Neutrophils # 4.9 Lymphocytes # 2.1 Monocytes # 0.7 Eosinophils # 0.4 Basophils # 0.1 Nucleated Red Blood Cells # 0.0 Sodium Level 141 Potassium Level 5.1 Chloride Level 105 Carbon Dioxide Level 31 Anion Gap 10 Blood Urea Nitrogen 12 Creatinine 0.70 Glucose Level 79 Calcium Level 9.2 Phosphorus Level 4.0 Magnesium Level 2.3 Medications Medications Current Medications Ondansetron HCl (Zofran Inj) 4 mg Q6H PRN IV NAUSEA AND/OR VOMITING; Start 10/30 at 19:30 Acetaminophen (Tylenol Tab) 650 mg Q6H PRN PO PAIN LEVEL 1-3 OR FEVER; Start at 19:30 Docusate Sodium (Colace) 100 mg Q12H PRN PO CONSTIPATION; Start 07/26/17 at 19: 30 Magnesium Hydroxide (Milk Of Mag) 30 ml DAILY PRN PO CONSTIPATION Last administered on 07/28/17 06:35; Admin Dose 30 ML; Start 07/26/17 at 19:30 Sodium Biphosphate/ Sodium Phosphate (Fleet Enema) 133 ml DAILY PRN [place] CONSTIPATION Last administered on 07/28/17 12:57; Admin Dose 133 ML; Start 10/30 at 19:30 Lorazepam 0.5 mg 0.5 mg Q6H PRN IV ANXIETY; Start 07/26/17 at 19:30 Sodium Chloride (NS) 1,000 ml @ 100 mls/hr Q10H IV Last administered on 08:57; Admin Dose 100 MLS/HR; Start 07/26/17 at 19:24 Vancomycin HCl (Vanco Iv Per Pharmacy) VANCOMYCIN PER PHARMACY NOTE XX ; Start 07/26/17 at 19:30 Hydralazine HCl (Apresoline) 10 mg Q6H PRN IV ELEVATED BLOOD PRESSURE; Start at 19:30 Nitroglycerin (Nitroglycerin (Sl Tab) 0.4 Mg) 1 tab Q5M PRN SL ANGINA; Start at 19:30 Baclofen (Lioresal) 20 mg BID PO Last administered on 08/02/17 08:41; Admin Dose 20 MG; Start 07/26/17 at 21:00 Gabapentin (Neurontin) 600 mg QID PO Last administered on 08/02/17 12:10; Admin Dose 600 MG; Start 07/26/17 at 21:00 Tolterodine Tartrate (Detrol La) 2 mg DAILY PO Last administered on 08/02/17 08:41; Admin Dose 2 MG; Start 07/27/17 at 09:00 Collagenase (Santyl) 1 applic DAILY TOP Last administered on 07/30/17 09:05; Admin Dose 1 APPLIC; Start 07/27/17 at 09:00 Collagenase (Santyl) 1 applic PRN PRN TOP SOILED Last administered on 06:13; Admin Dose 1 APPLIC; Start 07/27/17 at 04:00 Pantoprazole (Protonix Tab) 40 mg DAILY@06 PO Last administered on 08/02/17 06 :08; Admin Dose 40 MG; Start 07/28/17 at 06:00 Nicotine (Nicoderm 21 Mg/ 24hr) 1 patch DAILY TRANSDERM Last administered on 08:40; Admin Dose 1 PATCH; Start 07/27/17 at 09:00 Cholestyramine Resin (Questran) 1 pkt DAILY PO Last administered on 08/02/17 08:42; Admin Dose 1 PKT; Start 07/27/17 at 11:00 Collagenase 1 applic 1 applic DAILY TOP Last administered on 07/31/17 09:50; Admin Dose 1 APPLIC; Start 07/27/17 at 14:30 Ceftriaxone Sodium (Rocephin) 50 ml @ 100 mls/hr DAILY IVPB Last administered on 08/02/17 08:41; Admin Dose 100 MLS/HR; Start 07/28/17 at 09:00; Stop at 12:00 Enoxaparin Sodium (Lovenox) 40 mg DAILY SC Last administered on 08/02/17 08:43 ; Admin Dose 40 MG; Start 07/28/17 at 13:00 Sodium Hypochlorite (Dakin'S (1/4 Strength)) 1 applic DAILY IRR Last administered on 08/02/17 06:13; Admin Dose 1 APPLIC; Start 07/31/17 at 09:00 Hydromorphone HCl (Dilaudid) 1 mg Q2H PRN IV PAIN Last administered on 13:10; Admin Dose 1 MG; Start 07/31/17 at 11:00 Acetaminophen/ Hydrocodone Bitart 1 tab 1 tab Q4H PRN PO PAIN Last administered on 08/02/17 14:17; Admin Dose 1 TAB; Start 07/31/17 at 10:30 Vancomycin HCl/ Sodium Chloride (Vancocin/NS) 150 ml @ 75 mls/hr Q8H IVPB Last administered on 08/02/17 09:48; Admin Dose 75 MLS/HR; Start 08/02/17 at 00 :00 IVANA REA NP Aug 02, 2017 14:31
[2017-08-02 14:50] VITALS: BP 107/80; RESP 18
--- NOTE | 2017-08-02 15:24 | PN ---
Date/Time of Note Date/Time of Note DATE: 08/02/17 TIME: 15:12 Assessment/Plan Lines/Catheters IV Catheter Type (from [facility]): Peripheral IV [facility] in Place (from [facility]): Yes Assessment/Plan Chief Complaint/Hosp Course 1. 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 Hematuria: 2/2 trauma from eastman insertion; hx. of neurogenic bladder; s/p coude insertion by Dr. Ashraf no current bleed -close monitoring -per urology 3. Paraplegia: wc bound -nutritional optimization -vit c -frequent turning and offloading 4. Urinary retention 2/2 spinal injury; self caths at home, currently with coude -per urology; Thank you. Patient seen and examined in collaboration with Dr. Alex Andrews. Problems: Subjective 24 Hr Interval Summary Sleepy but otherwise feels well. No excessive wound drainage or discomfort. No fevers, chills, sob, congested cough, n/v/d/dysuria. Exam/Review of Systems Vital Signs Vitals Vital Signs Date Time Temp Pulse Resp B/P Pulse Ox O2 Delivery O2 Flow Rate FiO2 08/02/17 14:50 98.1 71 18 107/80 97 07/29/17 13:03 Room Air Intake and Output 08/01/17 08/01/17 08/02/17 15:00 23:00 07:00 Intake Total 600 ml 2050 ml 2530 ml Output Total 3750 ml 4120 ml Balance 600 ml -1700 ml -1590 ml Exam Free Text/Dictation Constitutional: alert, oriented Psych: nl mood/affect Head: atraumatic, normocephalic Eyes: nl lids, nl sclera ENMT: mucosa pink and moist, nl nasal mucosa & septum Neck: non-tender, supple Respiratory: normal air movement Cardiovascular: nl pulses, regular rate and rhythm Gastrointestinal: other (rotund), soft, No distended Musculoskeletal: nl extremities to inspection, other (BLE atrophy) Extremities: normal pulses, No edema, No pitting pedal edema Neurological: nl mental status, nl speech, nl strength Skin: other (Left buttock wound/sacrum: min drainage-dressing in place) Results Result Diagram: 08/02/1743908/02/17439 GRIS TRINIDAD NP Aug 02, 2017 15:23
[2017-08-02 21:12] VITALS: BP 111/64; RESP 18
[2017-08-03] MEDS: HYDROmorphONE 1 MG/ML SYG IV PRN ×9 (00:38→22:54)
[2017-08-03 03:26] VITALS: BP 101/64; RESP 18
[2017-08-03] MEDS: PANTOPRAZOLE (EC) 40 MG TAB PO SCH (05:33)
[2017-08-03] MEDS: HYDROCODONE/APAP (10/325) TAB PO PRN ×3 (05:34→19:50)
[2017-08-03 05:39] LABS: BASOPHIL # 0.1 10^3/ul (0.0-0.1); BASOPHILS % 0.7 % (0.0-2.0); EOSINOPHILS # 0.4 10^3/ul (0.0-0.5); EOSINOPHILS % 4.8 % (0.0-7.0); HEMATOCRIT 47.4 % (42.0-52.0); HEMOGLOBIN 15.4 g/dl (14.0-18.0); LYMPHOCYTES % 22.5 % (15.0-51.0); MEAN CORPUSCULAR HEMOGLOBIN 32.8 pg (29.0-33.0); MEAN CORPUSCULAR HGB CONC 32.5 g/dl (32.0-37.0); MEAN CORPUSCULAR VOLUME 101.1 fl (82.0-101.0); MEAN PLATELET VOLUME 10.1 fl (7.4-10.4); MONOCYTE # 0.7 10^3/ul (0.3-0.9); MONOCYTES % 8.1 % (0.0-11.0); NEUTROPHIL # 5.6 10^3/ul (1.6-7.5); NEUTROPHILS % 63.3 % (39.0-77.0); PLATELET COUNT 274 10^3/UL (140-415); RED BLOOD COUNT 4.69 10^6/ul (4.70-6.10); RED CELL DISTRIBUTION WIDTH 13.5 % (11.5-14.5); WHITE BLOOD COUNT 8.9 10^3/ul (4.8-10.8)
[2017-08-03 06:15] LABS: CALCIUM 9.4 mg/dl (8.4-10.2); CREATININE 0.61 mg/dl (0.61-1.24); POTASSIUM 4.6 mmol/L (3.5-5.1)
[2017-08-03] MEDS: SOD CHLORIDE 0.9% 1,000 ML IV SCH ×4 (07:24→20:03)
[2017-08-03 08:28] VITALS: BP 113/66; RESP 18
[2017-08-03] MEDS: COLLAGENASE 30 GM TUBE TOP SCH ×3 (09:00→09:44)
[2017-08-03] MEDS: CHOLESTYRAMINE 4 GM PACKET PO SCH (09:42)
[2017-08-03] MEDS: NICOTINE (21 MG/24 HR) PATCH TRANSDERM SCH (09:42)
[2017-08-03] MEDS: VANCOMYCIN 750 MG in SOD CHLORIDE 0.9% 150 ML IVPB SCH ×2 (09:42→18:03)
[2017-08-03] MEDS: TOLTERODINE (SR) 2 MG CAP PO SCH (09:42)
[2017-08-03] MEDS: CEFTRIAXONE 1 GM/50 ML (PMX) 50 ML IVPB SCH (09:43)
[2017-08-03] MEDS: ENOXAPARIN 40 MG/0.4 ML SYG SC SCH (09:43)
[2017-08-03] MEDS: GABAPENTIN 300 MG CAP PO SCH ×4 (09:43→20:41)
[2017-08-03] MEDS: BACLOFEN 10 MG TAB PO SCH ×2 (09:43→20:41)
[2017-08-03] MEDS: SODIUM HYPOCHLORITE 0.125% 473 ML BTL IRR SCH (09:44)
[2017-08-03] MEDS: NA PHOSPHATE/BIPHOS 133 ML ENEMA PR PRN (10:09)
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
--- NOTE | 2017-08-03 13:15 | CONS ---
Date/Time of Note Date/Time of Note DATE: 08/03/17 TIME: 13:14 Assessment/Plan Assessment/Plan Chief Complaint/Hosp Course SUBJECTIVE DATA: Alert feels good denies pain no fevers WBC 8.9 platelets 274 no shift no balance BUN 16 creatinine 0.61 MICROBIOLOGY: Blood and urine culture negative. DIAGNOSTICS: CT of the pelvis revealed question osteomyelitis at the posterior inferior left pubic ramus, possible phlegmon and dorsal soft tissue at the posterior inferior left pubic ramus, an differential consideration includes early abscess. No evidence of osteomyelitis over the dorsal aspect of the coccyx. ANTIMICROBIALS: IV vancomycin and Rocephin PHYSICAL EXAMINATION: GENERAL: Well-developed, paraplegic, middle-aged man who is alert, in no distress. HEENT: Head is atraumatic and normocephalic. Sclerae are anicteric. Buccal mucosa is pink. NECK: Supple. LUNGS: Chest rise is symmetrical. Breath sounds are clear. HEART: S1, S2. ABDOMEN: Soft. Bowel sounds are present. ASSESSMENT: 1. Left pubic ramus osteomyelitis with questionable abscess, s/p excisional debridement of left ischial wound with needle aspiration 2. Stage III left buttock decubitus ulcer. 3. 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 4. Tobacco use. 5. Constipation. PLAN: The patient remains stable. Continue present care, anticipate discharge on current antibiotics for total of 6 weeks DW staff/pt Problems: Consultation Date/Type/Reason Admit Date/Time Jul 26, 2017 at 19:19 Initial Consult Date 07/28/17 Type of Consultation: id Referring Provider: STEPHANIE HERRON MD Exam/Review of Systems Vital Signs Vitals Vital Signs Date Time Temp Pulse Resp B/P Pulse Ox O2 Delivery O2 Flow Rate FiO2 08/03/17 08:28 97.5 74 18 113/66 98 Intake and Output 08/02/17 08/02/17 08/03/17 15:00 23:00 07:00 Intake Total 600 ml 2430 ml 2090 ml Output Total 1200 ml 2950 ml Balance 600 ml 1230 ml -860 ml Results Result Diagram: 08/03/17 0448 08/03/17 0448 Results 24 hrs Laboratory Tests Test 08/03/17 04:48 08/03/17 07:02 White Blood Count 8.9 Red Blood Count 4.69 L Hemoglobin 15.4 Hematocrit 47.4 Mean Corpuscular Volume 101.1 H Mean Corpuscular Hemoglobin 32.8 Mean Corpuscular Hemoglobin Concent 32.5 Red Cell Distribution Width 13.5 Platelet Count 274 Mean Platelet Volume 10.1 Neutrophils % 63.3 Lymphocytes % 22.5 Monocytes % 8.1 Eosinophils % 4.8 Basophils % 0.7 Nucleated Red Blood Cells % 0.0 Neutrophils # 5.6 Lymphocytes # 2.0 Monocytes # 0.7 Eosinophils # 0.4 Basophils # 0.1 Nucleated Red Blood Cells # 0.0 Sodium Level 140 Potassium Level 4.6 Chloride Level 107 Carbon Dioxide Level 29 Anion Gap 9 Blood Urea Nitrogen 16 Creatinine 0.61 Glucose Level 87 Calcium Level 9.4 Magnesium Level 2.3 Vancomycin Level Trough 13.7 Medications Medications Current Medications Ondansetron HCl (Zofran Inj) 4 mg Q6H PRN IV NAUSEA AND/OR VOMITING; Start 10/30 at 19:30 Acetaminophen (Tylenol Tab) 650 mg Q6H PRN PO PAIN LEVEL 1-3 OR FEVER; Start at 19:30 Docusate Sodium (Colace) 100 mg Q12H PRN PO CONSTIPATION; Start 07/26/17 at 19: 30 Magnesium Hydroxide (Milk Of Mag) 30 ml DAILY PRN PO CONSTIPATION Last administered on 07/28/17 06:35; Admin Dose 30 ML; Start 07/26/17 at 19:30 Sodium Biphosphate/ Sodium Phosphate (Fleet Enema) 133 ml DAILY PRN [place] CONSTIPATION Last administered on 08/03/17 10:09; Admin Dose 133 ML; Start 10/30 at 19:30 Lorazepam 0.5 mg 0.5 mg Q6H PRN IV ANXIETY; Start 07/26/17 at 19:30 Sodium Chloride (NS) 1,000 ml @ 100 mls/hr Q10H IV Last administered on 22:22; Admin Dose 100 MLS/HR; Start 07/26/17 at 19:24 Vancomycin HCl (Vanco Iv Per Pharmacy) VANCOMYCIN PER PHARMACY NOTE XX ; Start 07/26/17 at 19:30 Hydralazine HCl (Apresoline) 10 mg Q6H PRN IV ELEVATED BLOOD PRESSURE; Start at 19:30 Nitroglycerin (Nitroglycerin (Sl Tab) 0.4 Mg) 1 tab Q5M PRN SL ANGINA; Start at 19:30 Baclofen (Lioresal) 20 mg BID PO Last administered on 08/03/17 09:43; Admin Dose 20 MG; Start 07/26/17 at 21:00 Gabapentin (Neurontin) 600 mg QID PO Last administered on 08/03/17 09:43; Admin Dose 600 MG; Start 07/26/17 at 21:00 Tolterodine Tartrate (Detrol La) 2 mg DAILY PO Last administered on 08/03/17 09:42; Admin Dose 2 MG; Start 07/27/17 at 09:00 Collagenase (Santyl) 1 applic DAILY TOP Last administered on 08/03/17 09:42; Admin Dose 1 APPLIC; Start 07/27/17 at 09:00 Collagenase (Santyl) 1 applic PRN PRN TOP SOILED Last administered on 06:13; Admin Dose 1 APPLIC; Start 07/27/17 at 04:00 Pantoprazole (Protonix Tab) 40 mg DAILY@06 PO Last administered on 08/03/17 05 :33; Admin Dose 40 MG; Start 07/28/17 at 06:00 Nicotine (Nicoderm 21 Mg/ 24hr) 1 patch DAILY TRANSDERM Last administered on 09:42; Admin Dose 1 PATCH; Start 07/27/17 at 09:00 Cholestyramine Resin (Questran) 1 pkt DAILY PO Last administered on 08/03/17 09:42; Admin Dose 1 PKT; Start 07/27/17 at 11:00 Collagenase 1 applic 1 applic DAILY TOP Last administered on 08/03/17 09:44; Admin Dose 1 APPLIC; Start 07/27/17 at 14:30 Ceftriaxone Sodium (Rocephin) 50 ml @ 100 mls/hr DAILY IVPB Last administered on 08/03/17 09:43; Admin Dose 100 MLS/HR; Start 07/28/17 at 09:00; Stop at 12:00 Enoxaparin Sodium (Lovenox) 40 mg DAILY SC Last administered on 08/03/17 09:43 ; Admin Dose 40 MG; Start 07/28/17 at 13:00 Sodium Hypochlorite (Dakin'S (1/4 Strength)) 1 applic DAILY IRR Last administered on 08/03/17 09:44; Admin Dose 1 APPLIC; Start 07/31/17 at 09:00 Hydromorphone HCl (Dilaudid) 1 mg Q2H PRN IV PAIN Last administered on 12:12; Admin Dose 1 MG; Start 07/31/17 at 11:00 Acetaminophen/ Hydrocodone Bitart 1 tab 1 tab Q4H PRN PO PAIN Last administered on 08/03/17 10:09; Admin Dose 1 TAB; Start 07/31/17 at 10:30 Vancomycin HCl/ Sodium Chloride (Vancocin/NS) 150 ml @ 75 mls/hr Q8H IVPB Last administered on 08/03/17 09:42; Admin Dose 75 MLS/HR; Start 08/02/17 at 00 :00 IVANA REA NP Aug 03, 2017 13:15
[2017-08-03] MEDS ORDERED: LIDOCAINE 1% (MPF) 5 ML VIAL SC ONE (14:00)
[2017-08-03 14:40] VITALS: BP 104/59; RESP 18
--- NOTE | 2017-08-03 14:48 | PN ---
Date/Time of Note Date/Time of Note DATE: 08/03/17 TIME: 14:41 Assessment/Plan Lines/Catheters IV Catheter Type (from Nrs): Peripheral IV [facility]man in Place (from [facility]): Yes Assessment/Plan Chief Complaint/Hosp Course 1. Multiple wounds: sacral and left buttock 2/2 immobility s/p debridement 07/29 : probable recurrent osteo -continue local care -frequent turning and offloading -low airloss mattress -vitamin C/ short term zinc -nutritional optimization -usp iv abx per ID -patient may be dc'd per medical team with abx per ID- patient to follow in wound clinic (patient prefers wound clinic near his own home if possible) 2. Hematuria: 2/2 trauma from eastman insertion; hx. of neurogenic bladder; s/p coude insertion by Dr. Ashraf no current bleed -close monitoring -per urology 3. Paraplegia: wc bound -nutritional optimization -vit c -frequent turning and offloading 4. Urinary retention 2/2 spinal injury; self caths at home, currently with coude -per urology Thank you. Patient seen and examined in collaboration with Dr. Alex Andrews. Problems: Subjective 24 Hr Interval Summary Feels well. No c/o pain, discomfort, excessive wound drainage. No fevers, chills , sob, congested cough, n/v/d/dysuria, sz, new wounds. Min drainage. Exam/Review of Systems Vital Signs Vitals Vital Signs Date Time Temp Pulse Resp B/P Pulse Ox O2 Delivery O2 Flow Rate FiO2 08/03/17 08:28 97.5 74 18 113/66 98 Intake and Output 08/02/17 08/02/17 08/03/17 15:00 23:00 07:00 Intake Total 600 ml 2430 ml 2090 ml Output Total 1200 ml 2950 ml Balance 600 ml 1230 ml -860 ml Exam Free Text/Dictation Constitutional: alert, oriented, somnolent Psych: nl mood/affect Head: atraumatic, normocephalic Eyes: nl lids, nl sclera ENMT: mucosa pink and moist, nl nasal mucosa & septum Neck: non-tender, supple Respiratory: normal air movement Cardiovascular: nl pulses, regular rate and rhythm Gastrointestinal: other (rotund), soft, No distended Musculoskeletal: nl extremities to inspection, other (BLE atrophy) Extremities: normal pulses, No edema, No pitting pedal edema Neurological: nl mental status, nl speech, nl strength Skin: other (Left buttock wound/sacrum: dressing in place) Results Result Diagram: 08/03/17 0448 08/03/17 0448 GRIS TRINIDAD NP Aug 03, 2017 14:48
[2017-08-03] MEDS ORDERED: SOD CHLORIDE 0.9% 100 ML ONE (16:58)
--- NOTE | 2017-08-03 17:38 | RADRPT ---
PROCEDURE: XR Chest. CLINICAL INDICATION: Line placement TECHNIQUE: Single frontal chest x-ray. COMPARISON: None. FINDINGS: There is a left-sided PICC line with its tip at the SVC / RA junction. The lungs are clear. No foca l opacification is seen. The cardiomediastinal silhouette is unremarkable. Elevation of the right h emidiaphragm. There is blunting of the right costophrenic angle. The osseous structures are unremark able. IMPRESSION: 1. PICC line in satisfactory position. 2. No acute infiltrate. 3. Elevation of the right hemidiaphragm with probable small pleural effusion versus pleural thicken ing. RPTAT: QQ .Michel De Souza MD, Date Time Electronically viewed and signed by .Michel De Souza MD, MD on 08/03/2017 17:38 .d/
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
[2017-08-03 19:56] VITALS: BP 115/64; RESP 18
[2017-08-04] MEDS: HYDROCODONE/APAP (10/325) TAB PO PRN ×4 (00:18→19:40)
[2017-08-04] MEDS: VANCOMYCIN 750 MG in SOD CHLORIDE 0.9% 150 ML IVPB SCH ×3 (00:18→16:38)
[2017-08-04] MEDS: HYDROmorphONE 1 MG/ML SYG IV PRN ×9 (01:35→23:14)
[2017-08-04 02:46] VITALS: BP 106/62; RESP 21
[2017-08-04] MEDS: SOD CHLORIDE 0.9% 1,000 ML IV SCH ×2 (03:24→23:24)
[2017-08-04] MEDS: PANTOPRAZOLE (EC) 40 MG TAB PO SCH (05:52)
[2017-08-04 08:00] VITALS: BP 114/64; RESP 16
[2017-08-04] MEDS: BACLOFEN 10 MG TAB PO SCH ×2 (08:12→19:40)
[2017-08-04] MEDS: NICOTINE (21 MG/24 HR) PATCH TRANSDERM SCH (08:13)
[2017-08-04] MEDS: GABAPENTIN 300 MG CAP PO SCH ×4 (08:13→19:40)
[2017-08-04] MEDS: TOLTERODINE (SR) 2 MG CAP PO SCH (08:13)
[2017-08-04] MEDS: CHOLESTYRAMINE 4 GM PACKET PO SCH (08:13)
[2017-08-04] MEDS: ENOXAPARIN 40 MG/0.4 ML SYG SC SCH (08:15)
[2017-08-04] MEDS: CEFTRIAXONE 1 GM/50 ML (PMX) 50 ML IVPB SCH (09:42)
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
[2017-08-04] MEDS: SODIUM HYPOCHLORITE 0.125% 473 ML BTL IRR SCH (13:43)
[2017-08-04] MEDS: COLLAGENASE 30 GM TUBE TOP SCH ×2 (13:44)
--- NOTE | 2017-08-04 14:44 | CONS ---
Date/Time of Note Date/Time of Note DATE: 08/04/17 TIME: 14:43 Assessment/Plan Assessment/Plan Chief Complaint/Hosp Course SUBJECTIVE DATA:Alert, feels good denies pain, no fevers Temperature 98 pulse 62 respirations 16 blood pressure 114/64 saturation 99 on room air MICROBIOLOGY: Blood and urine culture negative. DIAGNOSTICS: CT of the pelvis revealed question osteomyelitis at the posterior inferior left pubic ramus, possible phlegmon and dorsal soft tissue at the posterior inferior left pubic ramus, an differential consideration includes early abscess. No evidence of osteomyelitis over the dorsal aspect of the coccyx. ANTIMICROBIALS: IV vancomycin and Rocephin PHYSICAL EXAMINATION: GENERAL: Well-developed, paraplegic, middle-aged man who is alert, in no distress. HEENT: Head is atraumatic and normocephalic. Sclerae are anicteric. Buccal mucosa is pink. NECK: Supple. LUNGS: Chest rise is symmetrical. Breath sounds are clear. HEART: S1, S2. ABDOMEN: Soft. Bowel sounds are present. ASSESSMENT: 1. Left pubic ramus osteomyelitis with questionable abscess, s/p excisional debridement of left ischial wound with needle aspiration 2. Stage III left buttock decubitus ulcer. 3. 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 4. Tobacco use. 5. Constipation. PLAN: The patient remains stable. Continue present care, anticipate discharge on current antibiotics for total of 6 weeks, status post PICC DW staff/pt Problems: Consultation Date/Type/Reason Admit Date/Time Jul 26, 2017 at 19:19 Initial Consult Date 07/28/17 Type of Consultation: id Referring Provider: STEPHANIE HERRON MD Exam/Review of Systems Vital Signs Vitals Vital Signs Date Time Temp Pulse Resp B/P Pulse Ox O2 Delivery O2 Flow Rate FiO2 08/04/17 08:00 98.0 62 16 114/64 99 Intake and Output 08/03/17 08/03/17 08/04/17 15:00 23:00 07:00 Intake Total 200 ml 2430 ml 2250 ml Output Total 2400 ml 4300 ml Balance 200 ml 30 ml -2050 ml Results Result Diagram: 08/03/17 0448 08/03/17 0448 Medications Medications Current Medications Ondansetron HCl (Zofran Inj) 4 mg Q6H PRN IV NAUSEA AND/OR VOMITING; Start 10/30 at 19:30 Acetaminophen (Tylenol Tab) 650 mg Q6H PRN PO PAIN LEVEL 1-3 OR FEVER; Start at 19:30 Docusate Sodium (Colace) 100 mg Q12H PRN PO CONSTIPATION; Start 07/26/17 at 19: 30 Magnesium Hydroxide (Milk Of Mag) 30 ml DAILY PRN PO CONSTIPATION Last administered on 07/28/17 06:35; Admin Dose 30 ML; Start 07/26/17 at 19:30 Sodium Biphosphate/ Sodium Phosphate (Fleet Enema) 133 ml DAILY PRN [place] CONSTIPATION Last administered on 08/03/17 10:09; Admin Dose 133 ML; Start 10/30 at 19:30 Lorazepam 0.5 mg 0.5 mg Q6H PRN IV ANXIETY; Start 07/26/17 at 19:30 Sodium Chloride (NS) 1,000 ml @ 100 mls/hr Q10H IV Last administered on 20:03; Admin Dose 100 MLS/HR; Start 07/26/17 at 19:24 Vancomycin HCl (Vanco Iv Per Pharmacy) VANCOMYCIN PER PHARMACY NOTE XX ; Start 07/26/17 at 19:30 Hydralazine HCl (Apresoline) 10 mg Q6H PRN IV ELEVATED BLOOD PRESSURE; Start at 19:30 Nitroglycerin (Nitroglycerin (Sl Tab) 0.4 Mg) 1 tab Q5M PRN SL ANGINA; Start at 19:30 Baclofen (Lioresal) 20 mg BID PO Last administered on 08/04/17 08:12; Admin Dose 20 MG; Start 07/26/17 at 21:00 Gabapentin (Neurontin) 600 mg QID PO Last administered on 08/04/17 13:42; Admin Dose 600 MG; Start 07/26/17 at 21:00 Tolterodine Tartrate (Detrol La) 2 mg DAILY PO Last administered on 08/04/17 08:13; Admin Dose 2 MG; Start 07/27/17 at 09:00 Collagenase (Santyl) 1 applic DAILY TOP Last administered on 08/04/17 13:44; Admin Dose 1 APPLIC; Start 07/27/17 at 09:00 Collagenase (Santyl) 1 applic PRN PRN TOP SOILED Last administered on 06:13; Admin Dose 1 APPLIC; Start 07/27/17 at 04:00 Pantoprazole (Protonix Tab) 40 mg DAILY@06 PO Last administered on 08/04/17 05 :52; Admin Dose 40 MG; Start 07/28/17 at 06:00 Nicotine (Nicoderm 21 Mg/ 24hr) 1 patch DAILY TRANSDERM Last administered on 08:13; Admin Dose 1 PATCH; Start 07/27/17 at 09:00 Cholestyramine Resin (Questran) 1 pkt DAILY PO Last administered on 08/04/17 08:13; Admin Dose 1 PKT; Start 07/27/17 at 11:00 Collagenase 1 applic 1 applic DAILY TOP Last administered on 08/04/17 13:44; Admin Dose 1 APPLIC; Start 07/27/17 at 14:30 Ceftriaxone Sodium (Rocephin) 50 ml @ 100 mls/hr DAILY IVPB Last administered on 08/04/17 09:42; Admin Dose 100 MLS/HR; Start 07/28/17 at 09:00; Stop at 12:00 Enoxaparin Sodium (Lovenox) 40 mg DAILY SC Last administered on 08/04/17 08:15 ; Admin Dose 40 MG; Start 07/28/17 at 13:00 Sodium Hypochlorite (Dakin'S (1/4 Strength)) 1 applic DAILY IRR Last administered on 08/04/17 13:43; Admin Dose 1 APPLIC; Start 07/31/17 at 09:00 Hydromorphone HCl (Dilaudid) 1 mg Q2H PRN IV PAIN Last administered on 14:18; Admin Dose 1 MG; Start 07/31/17 at 11:00 Acetaminophen/ Hydrocodone Bitart 1 tab 1 tab Q4H PRN PO PAIN Last administered on 08/04/17 08:13; Admin Dose 1 TAB; Start 07/31/17 at 10:30 Vancomycin HCl/ Sodium Chloride (Vancocin/NS) 150 ml @ 75 mls/hr Q8H IVPB Last administered on 08/04/17 08:12; Admin Dose 75 MLS/HR; Start 08/02/17 at 00 :00 IV Flush (NS 10 ml) 10 ml PRN PRN IV IV PROTOCOL; Start 08/03/17 at 18:00 IVANA REA NP Aug 04, 2017 14:44
[2017-08-04 14:46] VITALS: BP 116/61; RESP 18
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
--- NOTE | 2017-08-04 16:35 | RADRPT ---
PROCEDURE: Ultrasound guidance for placement of needle in the left upper extremity vein CLINICAL INDICATION: Venous access. TECHNIQUE: Limited sonography of the left upper extremity was performed. Ultrasound images were recorded and st ored in the patient's medical record. COMPARISON: None. FINDINGS: The ultrasound images demonstrate a patent left upper extremity vein. The PICC line was inserted by the PICC line nurse. IMPRESSION: 1. Ultrasound guidance for a needle placement in a left upper extremity vein. 2. The visualized left upper extremity vein is patent. RPTAT: QQ .Hamzah Samson MD, MD Date Time Electronically viewed and signed by .Hamzah Samson MD, on 08/04/2017 16:34 .K/
[2017-08-04 19:40] VITALS: BP 118/68; RESP 18
[2017-08-05] MEDS: HYDROCODONE/APAP (10/325) TAB PO PRN ×3 (00:30→13:05)
[2017-08-05] MEDS: VANCOMYCIN 750 MG in SOD CHLORIDE 0.9% 150 ML IVPB SCH ×4 (00:32→23:13)
[2017-08-05] MEDS: HYDROmorphONE 1 MG/ML SYG IV PRN ×9 (01:48→23:13)
[2017-08-05 02:05] VITALS: BP 105/61; RESP 18
[2017-08-05] MEDS: PANTOPRAZOLE (EC) 40 MG TAB PO SCH (05:42)
[2017-08-05 07:16] LABS: CREATININE 0.52 mg/dl (0.61-1.24)
--- NOTE | 2017-08-05 08:46 | PN ---
Date/Time of Note Date/Time of Note DATE: 08/05/17 TIME: 08:21 Assessment/Plan Lines/Catheters IV Catheter Type (from Nrs): PICC Line Eastman in Place (from Nrs): Yes Assessment/Plan Chief Complaint/Hosp Course 1. Multiple wounds: sacral and left buttock 2/2 immobility s/p debridement 07/29 : recurrent osteo -continue local care -frequent turning and offloading -low airloss mattress -vitamin C/ short term zinc -nutritional optimization -usp iv abx per ID -patient may be dc'd per medical team with abx per ID- patient to follow in wound clinic (patient prefers wound clinic near his own home if possible) 2. Hematuria: 2/2 trauma from eastman insertion; hx. of neurogenic bladder; s/p coude insertion by Dr. Ashraf no current bleed -close monitoring -per urology to dc eastman prior to discharge and resume self cath 3. Paraplegia: wc bound -nutritional optimization -vit c -frequent turning and offloading 4. Urinary retention 2/2 spinal injury; self caths at home, currently with coude -per urology as above Thank you. Patient seen and examined in collaboration with Dr. Alex Andrews. Problems: Subjective 24 Hr Interval Summary Feels well. DC planning ongoing. No acute discomfort or pain from wound. No fevers, chills, sob, congestion, cough, cp, palpitations, n/v/d/dysuria, excessive wound drainage or odor. Exam/Review of Systems Vital Signs Vitals Vital Signs Date Time Temp Pulse Resp B/P Pulse Ox O2 Delivery O2 Flow Rate FiO2 08/05/17 02:05 98.5 68 18 105/61 96 Intake and Output 08/04/17 08/04/17 08/05/17 15:00 23:00 07:00 Intake Total 3500 ml 1500 ml Output Total 4800 ml 2600 ml Balance -1300 ml -1100 ml Exam Free Text/Dictation Constitutional: alert, oriented, somnolent Psych: nl mood/affect Head: atraumatic, normocephalic Eyes: nl lids, nl sclera ENMT: mucosa pink and moist, nl nasal mucosa & septum Neck: non-tender, supple Respiratory: normal air movement Cardiovascular: nl pulses, regular rate and rhythm Gastrointestinal: other (rotund), soft, No distended Musculoskeletal: nl extremities to inspection, other (BLE atrophy) Extremities: normal pulses, No edema, No pitting pedal edema Neurological: nl mental status, nl speech, nl strength Skin: other (Left buttock wound/sacrum: packed, dressing dry, nonmalodorous) Results Result Diagram: 08/03/17 0448 08/05/17 0547 GRSI TRINIDAD NP Aug 05, 2017 08:42
[2017-08-05 08:47] VITALS: BP 93/53; RESP 20
[2017-08-05] MEDS: NICOTINE (21 MG/24 HR) PATCH TRANSDERM SCH (09:19)
[2017-08-05] MEDS: CHOLESTYRAMINE 4 GM PACKET PO SCH (09:19)
[2017-08-05] MEDS: GABAPENTIN 300 MG CAP PO SCH ×4 (09:19→20:27)
[2017-08-05] MEDS: TOLTERODINE (SR) 2 MG CAP PO SCH (09:19)
[2017-08-05] MEDS: BACLOFEN 10 MG TAB PO SCH ×2 (09:19→20:26)
[2017-08-05] MEDS: ENOXAPARIN 40 MG/0.4 ML SYG SC SCH (09:21)
[2017-08-05] MEDS: CEFTRIAXONE 1 GM/50 ML (PMX) 50 ML IVPB SCH (09:22)
[2017-08-05] MEDS: COLLAGENASE 30 GM TUBE TOP SCH ×2 (11:42)
[2017-08-05] MEDS: SODIUM HYPOCHLORITE 0.125% 473 ML BTL IRR SCH (11:50)
[2017-08-05] MEDS: SOD CHLORIDE 0.9% 1,000 ML IV SCH ×2 (12:20→19:24)
[2017-08-05 14:00] VITALS: BP 121/78; RESP 20
--- NOTE | 2017-08-05 14:20 | CONS ---
Date/Time of Note Date/Time of Note DATE: 08/05/17 TIME: 14:19 Assessment/Plan Assessment/Plan Chief Complaint/Hosp Course SUBJECTIVE DATA:Alert, feels good denies pain, no fevers MICROBIOLOGY: Blood and urine culture negative. DIAGNOSTICS: CT of the pelvis revealed question osteomyelitis at the posterior inferior left pubic ramus, possible phlegmon and dorsal soft tissue at the posterior inferior left pubic ramus, an differential consideration includes early abscess. No evidence of osteomyelitis over the dorsal aspect of the coccyx. ANTIMICROBIALS: IV vancomycin and Rocephin PHYSICAL EXAMINATION: GENERAL: Well-developed, paraplegic, middle-aged man who is alert, in no distress. HEENT: Head is atraumatic and normocephalic. Sclerae are anicteric. Buccal mucosa is pink. NECK: Supple. LUNGS: Chest rise is symmetrical. Breath sounds are clear. HEART: S1, S2. ABDOMEN: Soft. Bowel sounds are present. ASSESSMENT: 1. Left pubic ramus osteomyelitis with questionable abscess, s/p excisional debridement of left ischial wound with needle aspiration 2. Stage III left buttock decubitus ulcer. 3. 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 4. Tobacco use. 5. Constipation. PLAN: The patient remains stable. Continue present care, anticipate discharge on current antibiotics to complete 6 weeks course, status post PICC DW staff/pt Problems: Consultation Date/Type/Reason Admit Date/Time Jul 26, 2017 at 19:19 Initial Consult Date 07/28/17 Type of Consultation: id Referring Provider: STEPHANIE HERRON MD Exam/Review of Systems Vital Signs Vitals Vital Signs Date Time Temp Pulse Resp B/P Pulse Ox O2 Delivery O2 Flow Rate FiO2 08/05/17 08:47 97.9 96 20 93/53 97 Intake and Output 08/04/17 08/04/17 08/05/17 15:00 23:00 07:00 Intake Total 3500 ml 1500 ml Output Total 4800 ml 2600 ml Balance -1300 ml -1100 ml Results Result Diagram: 08/03/17 0448 08/05/17 0547 Results 24 hrs Laboratory Tests Test 08/05/17 05:47 Blood Urea Nitrogen 13 Creatinine 0.52 L Medications Medications Current Medications Ondansetron HCl (Zofran Inj) 4 mg Q6H PRN IV NAUSEA AND/OR VOMITING; Start 10/30 at 19:30 Acetaminophen (Tylenol Tab) 650 mg Q6H PRN PO PAIN LEVEL 1-3 OR FEVER; Start at 19:30 Docusate Sodium (Colace) 100 mg Q12H PRN PO CONSTIPATION; Start 07/26/17 at 19: 30 Magnesium Hydroxide (Milk Of Mag) 30 ml DAILY PRN PO CONSTIPATION Last administered on 07/28/17 06:35; Admin Dose 30 ML; Start 07/26/17 at 19:30 Sodium Biphosphate/ Sodium Phosphate (Fleet Enema) 133 ml DAILY PRN [place] CONSTIPATION Last administered on 08/03/17 10:09; Admin Dose 133 ML; Start 10/30 at 19:30 Lorazepam 0.5 mg 0.5 mg Q6H PRN IV ANXIETY; Start 07/26/17 at 19:30 Sodium Chloride (NS) 1,000 ml @ 100 mls/hr Q10H IV Last administered on 12:20; Admin Dose 100 MLS/HR; Start 07/26/17 at 19:24 Vancomycin HCl (Vanco Iv Per Pharmacy) VANCOMYCIN PER PHARMACY NOTE XX ; Start 07/26/17 at 19:30 Hydralazine HCl (Apresoline) 10 mg Q6H PRN IV ELEVATED BLOOD PRESSURE; Start at 19:30 Nitroglycerin (Nitroglycerin (Sl Tab) 0.4 Mg) 1 tab Q5M PRN SL ANGINA; Start at 19:30 Baclofen (Lioresal) 20 mg BID PO Last administered on 08/05/17 09:19; Admin Dose 20 MG; Start 07/26/17 at 21:00 Gabapentin (Neurontin) 600 mg QID PO Last administered on 08/05/17 11:42; Admin Dose 600 MG; Start 07/26/17 at 21:00 Tolterodine Tartrate (Detrol La) 2 mg DAILY PO Last administered on 08/05/17 09:19; Admin Dose 2 MG; Start 07/27/17 at 09:00 Collagenase (Santyl) 1 applic DAILY TOP Last administered on 08/05/17 11:42; Admin Dose 1 APPLIC; Start 07/27/17 at 09:00 Collagenase (Santyl) 1 applic PRN PRN TOP SOILED Last administered on 06:13; Admin Dose 1 APPLIC; Start 07/27/17 at 04:00 Pantoprazole (Protonix Tab) 40 mg DAILY@06 PO Last administered on 08/05/17 05 :42; Admin Dose 40 MG; Start 07/28/17 at 06:00 Nicotine (Nicoderm 21 Mg/ 24hr) 1 patch DAILY TRANSDERM Last administered on 09:19; Admin Dose 1 PATCH; Start 07/27/17 at 09:00 Cholestyramine Resin (Questran) 1 pkt DAILY PO Last administered on 08/05/17 09:19; Admin Dose 1 PKT; Start 07/27/17 at 11:00 Collagenase 1 applic 1 applic DAILY TOP Last administered on 08/05/17 11:42; Admin Dose 1 APPLIC; Start 07/27/17 at 14:30 Ceftriaxone Sodium (Rocephin) 50 ml @ 100 mls/hr DAILY IVPB Last administered on 08/05/17 09:22; Admin Dose 100 MLS/HR; Start 07/28/17 at 09:00; Stop at 12:00 Enoxaparin Sodium (Lovenox) 40 mg DAILY SC Last administered on 08/05/17 09:21 ; Admin Dose 40 MG; Start 07/28/17 at 13:00 Sodium Hypochlorite (Dakin'S (1/4 Strength)) 1 applic DAILY IRR Last administered on 08/05/17 11:50; Admin Dose 1 APPLIC; Start 07/31/17 at 09:00 Hydromorphone HCl (Dilaudid) 1 mg Q2H PRN IV PAIN Last administered on 14:16; Admin Dose 1 MG; Start 07/31/17 at 11:00 Acetaminophen/ Hydrocodone Bitart 1 tab 1 tab Q4H PRN PO PAIN Last administered on 08/05/17 13:05; Admin Dose 1 TAB; Start 07/31/17 at 10:30 Vancomycin HCl/ Sodium Chloride (Vancocin/NS) 150 ml @ 75 mls/hr Q8H IVPB Last administered on 08/05/17 09:22; Admin Dose 75 MLS/HR; Start 08/02/17 at 00 :00 IV Flush (NS 10 ml) 10 ml PRN PRN IV IV PROTOCOL; Start 08/03/17 at 18:00 Miscellaneous Information (*Rx Drug Level Order Reminder*) 1 ONCE ONCE XX ; Start 08/06/17 at 07:00; Stop 08/06/17 at 07:01 IVANA REA NP Aug 05, 2017 14:20
[2017-08-05] MEDS ORDERED: CEFT1PIG2 IVPB (15:54)
[2017-08-05] MEDS ORDERED: VANC750F2 IV (15:56)
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
[2017-08-05] MEDS ORDERED: Hydrocodone/Apap (10/325) PO (16:08)
[2017-08-05 20:00] VITALS: BP 113/59; RESP 18
[2017-08-06 02:00] VITALS: BP 106/56; RESP 19
[2017-08-06] MEDS: HYDROmorphONE 1 MG/ML SYG IV PRN ×7 (02:42→20:46)
[2017-08-06] MEDS: HYDROCODONE/APAP (10/325) TAB PO PRN ×4 (03:54→18:10)
[2017-08-06] MEDS: PANTOPRAZOLE (EC) 40 MG TAB PO SCH (06:19)
[2017-08-06] MEDS: SOD CHLORIDE 0.9% 1,000 ML IV SCH ×2 (06:19→18:10)
[2017-08-06 08:00] VITALS: BP 137/78; RESP 20
[2017-08-06] MEDS: BACLOFEN 10 MG TAB PO SCH ×2 (08:22→20:49)
[2017-08-06] MEDS: NICOTINE (21 MG/24 HR) PATCH TRANSDERM SCH (08:22)
[2017-08-06] MEDS: TOLTERODINE (SR) 2 MG CAP PO SCH (08:22)
[2017-08-06] MEDS: GABAPENTIN 300 MG CAP PO SCH ×4 (08:22→20:49)
[2017-08-06] MEDS: CHOLESTYRAMINE 4 GM PACKET PO SCH (08:22)
[2017-08-06] MEDS: ENOXAPARIN 40 MG/0.4 ML SYG SC SCH (08:27)
[2017-08-06] MEDS: CEFTRIAXONE 1 GM/50 ML (PMX) 50 ML IVPB SCH (08:28)
[2017-08-06] MEDS: VANCOMYCIN 750 MG in SOD CHLORIDE 0.9% 150 ML IVPB SCH (09:29)
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
[2017-08-06] MEDS: SODIUM HYPOCHLORITE 0.125% 473 ML BTL IRR SCH (13:24)
[2017-08-06] MEDS: COLLAGENASE 30 GM TUBE TOP SCH ×2 (13:25)
[2017-08-06 14:00] VITALS: BP 119/59; RESP 18
--- NOTE | 2017-08-06 15:28 | PN ---
DATE: 08/06/2017 SUBJECTIVE DATA: No acute changes overnight. The patient is alert, feels good, denies pain or discomfort. No fevers. PHYSICAL EXAMINATION: GENERAL: Well developed, well nourished, paraplegic, 46-year-old man in no distress. HEENT: Head atraumatic, normocephalic. Sclerae anicteric. Buccal mucosa pink. NECK: Supple. CHEST: Rise symmetrical. Breath sounds clear. HEART: S1, S2. ABDOMEN: Soft, bowel sounds present. EXTREMITIES: Without cyanosis. ASSESSMENT: 1. Left pubic ramus osteomyelitis, status post incision and drainage. 2. Paraplegia. 3. Tobacco use. PLAN: The patient remains stable. Continue present care. Await for discharge home on current antibiotics to complete 6 weeks. Dictated By: Anahy Licona NP /reinaldo/bernard /Document#: [id number]
[2017-08-06] MEDS: SOD CHLORIDE 0.9% IVPB SCH ×2 (16:27→23:47)
[2017-08-06] MEDS: VANCOMYCIN IVPB SCH ×2 (16:27→23:47)
[2017-08-06 20:08] VITALS: BP 122/66; RESP 18
[2017-08-07 02:00] VITALS: BP 113/64; RESP 17
[2017-08-07] MEDS: PANTOPRAZOLE (EC) 40 MG TAB PO SCH (05:26)
[2017-08-07] MEDS: SOD CHLORIDE 0.9% 1,000 ML IV SCH ×4 (05:27→22:42)
[2017-08-07] MEDS: HYDROmorphONE 1 MG/ML SYG IV PRN ×7 (05:28→22:42)
[2017-08-07] MEDS: HYDROCODONE/APAP (10/325) TAB PO PRN ×4 (06:47→21:28)
[2017-08-07 07:30] VITALS: BP 105/62; RESP 16
[2017-08-07] MEDS: TOLTERODINE (SR) 2 MG CAP PO SCH (08:26)
[2017-08-07] MEDS: GABAPENTIN 300 MG CAP PO SCH ×4 (08:26→20:42)
[2017-08-07] MEDS: SOD CHLORIDE 0.9% IVPB SCH ×2 (08:26→16:11)
[2017-08-07] MEDS: VANCOMYCIN IVPB SCH ×2 (08:26→16:11)
[2017-08-07] MEDS: BACLOFEN 10 MG TAB PO SCH ×2 (08:26→20:42)
[2017-08-07] MEDS: ENOXAPARIN 40 MG/0.4 ML SYG SC SCH (08:28)
[2017-08-07] MEDS: CHOLESTYRAMINE 4 GM PACKET PO SCH (08:33)
[2017-08-07] MEDS: NICOTINE (21 MG/24 HR) PATCH TRANSDERM SCH (08:33)
[2017-08-07] MEDS: CEFTRIAXONE 1 GM/50 ML (PMX) 50 ML IVPB SCH (11:02)
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
[2017-08-07] MEDS: COLLAGENASE 30 GM TUBE TOP SCH ×2 (12:38)
[2017-08-07] MEDS: SODIUM HYPOCHLORITE 0.125% 473 ML BTL IRR SCH (12:38)
[2017-08-07 14:12] VITALS: BP 117/53; RESP 16
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
--- NOTE | 2017-08-07 15:54 | CONS ---
Date/Time of Note Date/Time of Note DATE: 08/07/17 TIME: 15:52 Assessment/Plan Assessment/Plan Chief Complaint/Hosp Course SUBJECTIVE DATA: No acute changes overnight. No fevers. PHYSICAL EXAMINATION: GENERAL: Well developed, well nourished, paraplegic, 46-year-old man in no distress. HEENT: Head atraumatic, normocephalic. Sclerae anicteric. Buccal mucosa pink. NECK: Supple. CHEST: Rise symmetrical. Breath sounds clear. HEART: S1, S2. ABDOMEN: Soft, bowel sounds present. EXTREMITIES: Without cyanosis. ASSESSMENT: 1. Left pubic ramus osteomyelitis, status post incision and drainage. 2. Paraplegia. 3. Tobacco use. PLAN: The patient remains stable. Continue present care. Pain Management. Await for discharge home on current antibiotics to complete 6 weeks. Problems: Consultation Date/Type/Reason Admit Date/Time Jul 26, 2017 at 19:19 Initial Consult Date 07/28/17 Type of Consultation: id Referring Provider: STEPHANIE HERRON MD Exam/Review of Systems Vital Signs Vitals Vital Signs Date Time Temp Pulse Resp B/P Pulse Ox O2 Delivery O2 Flow Rate FiO2 08/07/17 14:12 98.5 77 16 117/53 94 Intake and Output 08/06/17 08/06/17 08/07/17 15:00 23:00 07:00 Intake Total 50 ml 3930 ml 2350 ml Output Total 2350 ml 4100 ml Balance 50 ml 1580 ml -1750 ml Results Result Diagram: 08/03/17 0448 08/05/17 0547 Medications Medications Current Medications Ondansetron HCl (Zofran Inj) 4 mg Q6H PRN IV NAUSEA AND/OR VOMITING; Start 10/30 at 19:30 Acetaminophen (Tylenol Tab) 650 mg Q6H PRN PO PAIN LEVEL 1-3 OR FEVER; Start at 19:30 Docusate Sodium (Colace) 100 mg Q12H PRN PO CONSTIPATION; Start 07/26/17 at 19: 30 Magnesium Hydroxide (Milk Of Mag) 30 ml DAILY PRN PO CONSTIPATION Last administered on 07/28/17t 06:35; Admin Dose 30 ML; Start 07/26/17 at 19:30 Sodium Biphosphate/ Sodium Phosphate (Fleet Enema) 133 ml DAILY PRN [place] CONSTIPATION Last administered on 08/03/17 10:09; Admin Dose 133 ML; Start 10/30 at 19:30 Lorazepam 0.5 mg 0.5 mg Q6H PRN IV ANXIETY; Start 07/26/17 at 19:30 Sodium Chloride (NS) 1,000 ml @ 100 mls/hr Q10H IV Last administered on 05:27; Admin Dose 100 MLS/HR; Start 07/26/17 at 19:24 Vancomycin HCl (Vanco Iv Per Pharmacy) VANCOMYCIN PER PHARMACY NOTE XX ; Start 07/26/17 at 19:30 Hydralazine HCl (Apresoline) 10 mg Q6H PRN IV ELEVATED BLOOD PRESSURE; Start at 19:30 Nitroglycerin (Nitroglycerin (Sl Tab) 0.4 Mg) 1 tab Q5M PRN SL ANGINA; Start at 19:30 Baclofen (Lioresal) 20 mg BID PO Last administered on 08/07/17 08:26; Admin Dose 20 MG; Start 07/26/17 at 21:00 Gabapentin (Neurontin) 600 mg QID PO Last administered on 08/07/17 12:40; Admin Dose 600 MG; Start 07/26/17 at 21:00 Tolterodine Tartrate (Detrol La) 2 mg DAILY PO Last administered on 08/07/17 08:26; Admin Dose 2 MG; Start 07/27/17 at 09:00 Collagenase (Santyl) 1 applic DAILY TOP Last administered on 08/07/17 12:38; Admin Dose 1 APPLIC; Start 07/27/17 at 09:00 Collagenase (Santyl) 1 applic PRN PRN TOP SOILED Last administered on 06:13; Admin Dose 1 APPLIC; Start 07/27/17 at 04:00 Pantoprazole (Protonix Tab) 40 mg DAILY@06 PO Last administered on 08/07/17 05 :26; Admin Dose 40 MG; Start 07/28/17 at 06:00 Nicotine (Nicoderm 21 Mg/ 24hr) 1 patch DAILY TRANSDERM Last administered on 08:33; Admin Dose 1 PATCH; Start 07/27/17 at 09:00 Cholestyramine Resin (Questran) 1 pkt DAILY PO Last administered on 08/07/17 08:33; Admin Dose 1 PKT; Start 07/27/17 at 11:00 Collagenase 1 applic 1 applic DAILY TOP Last administered on 08/07/17 12:38; Admin Dose 1 APPLIC; Start 07/27/17 at 14:30 Ceftriaxone Sodium (Rocephin) 50 ml @ 100 mls/hr DAILY IVPB Last administered on 08/07/17 11:02; Admin Dose 100 MLS/HR; Start 07/28/17 at 09:00; Stop at 12:00 Enoxaparin Sodium (Lovenox) 40 mg DAILY SC Last administered on 08/07/17 08:28 ; Admin Dose 40 MG; Start 07/28/17 at 13:00 Sodium Hypochlorite (Dakin'S (1/4 Strength)) 1 applic DAILY IRR Last administered on 08/07/17 12:38; Admin Dose 1 APPLIC; Start 07/31/17 at 09:00 Hydromorphone HCl (Dilaudid) 1 mg Q2H PRN IV PAIN Last administered on 13:52; Admin Dose 1 MG; Start 07/31/17 at 11:00 Acetaminophen/ Hydrocodone Bitart ([place] (10/325)) 1 tab Q4H PRN PO PAIN Last administered on 08/07/17 12:37; Admin Dose 1 TAB; Start 07/31/17 at 10:30 IV Flush 10 ml 10 ml PRN PRN IV IV PROTOCOL; Start 08/03/17 at 18:00 Vancomycin HCl/ Sodium Chloride (Vancocin/NS) 150 ml @ 75 mls/hr Q8H IVPB Last administered on 08/07/17 08:26; Admin Dose 75 MLS/HR; Start 08/06/17 at 16 :00 HARI REGALADO NP Aug 07, 2017 15:54
[2017-08-07 20:29] VITALS: BP 96/67; RESP 16
[2017-08-08] MEDS: VANCOMYCIN IVPB SCH ×3 (00:43→16:17)
[2017-08-08] MEDS: SOD CHLORIDE 0.9% IVPB SCH ×3 (00:43→16:17)
[2017-08-08] MEDS: HYDROmorphONE 1 MG/ML SYG IV PRN ×7 (00:44→17:34)
[2017-08-08] MEDS: HYDROCODONE/APAP (10/325) TAB PO PRN ×5 (01:47→18:36)
[2017-08-08 02:13] VITALS: BP 96/55; RESP 17
[2017-08-08] MEDS: PANTOPRAZOLE (EC) 40 MG TAB PO SCH (05:52)
[2017-08-08 06:21] LABS: CREATININE 0.67 mg/dl (0.61-1.24)
[2017-08-08] MEDS: ENOXAPARIN 40 MG/0.4 ML SYG SC SCH (07:55)
[2017-08-08] MEDS: TOLTERODINE (SR) 2 MG CAP PO SCH (07:55)
[2017-08-08] MEDS: GABAPENTIN 300 MG CAP PO SCH ×4 (07:55→20:49)
[2017-08-08] MEDS: BACLOFEN 10 MG TAB PO SCH ×2 (07:56→20:49)
[2017-08-08] MEDS: NICOTINE (21 MG/24 HR) PATCH TRANSDERM SCH (07:56)
[2017-08-08] MEDS: CHOLESTYRAMINE 4 GM PACKET PO SCH (08:04)
[2017-08-08 08:20] VITALS: BP 108/56; RESP 20
[2017-08-08] MEDS: SODIUM HYPOCHLORITE 0.125% 473 ML BTL IRR SCH (09:00)
[2017-08-08] MEDS: COLLAGENASE 30 GM TUBE TOP SCH ×2 (09:00)
[2017-08-08] MEDS: CEFTRIAXONE 1 GM/50 ML (PMX) 50 ML IVPB SCH (10:01)
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
[2017-08-08 15:03] VITALS: BP 114/62; RESP 20
--- NOTE | 2017-08-08 15:54 | CONS ---
Date/Time of Note Date/Time of Note DATE: 08/08/17 TIME: 15:53 Assessment/Plan Assessment/Plan Chief Complaint/Hosp Course SUBJECTIVE DATA:Alert, feels good denies pain, no fevers MICROBIOLOGY: Blood and urine culture negative. DIAGNOSTICS: CT of the pelvis revealed question osteomyelitis at the posterior inferior left pubic ramus, possible phlegmon and dorsal soft tissue at the posterior inferior left pubic ramus, an differential consideration includes early abscess. No evidence of osteomyelitis over the dorsal aspect of the coccyx. ANTIMICROBIALS: IV vancomycin and Rocephin PHYSICAL EXAMINATION: GENERAL: Well-developed, paraplegic, middle-aged man who is alert, in no distress. HEENT: Head is atraumatic and normocephalic. Sclerae are anicteric. Buccal mucosa is pink. NECK: Supple. LUNGS: Chest rise is symmetrical. Breath sounds are clear. HEART: S1, S2. ABDOMEN: Soft. Bowel sounds are present. ASSESSMENT: 1. Left pubic ramus osteomyelitis with questionable abscess, s/p excisional debridement of left ischial wound with needle aspiration 2. Stage III left buttock decubitus ulcer. 3. 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 4. Tobacco use. 5. Constipation. PLAN: The patient remains stable. Pending discharge on current antibiotics to complete 6 weeks course DW staff/pt Problems: Consultation Date/Type/Reason Admit Date/Time Jul 26, 2017 at 19:19 Initial Consult Date 07/28/17 Type of Consultation: id Referring Provider: STEPHANIE HERRON MD Exam/Review of Systems Vital Signs Vitals Vital Signs Date Time Temp Pulse Resp B/P Pulse Ox O2 Delivery O2 Flow Rate FiO2 08/08/17 15:03 98.3 68 20 114/62 97 Intake and Output 08/07/17 08/07/17 08/08/17 15:00 23:00 07:00 Intake Total 200 ml 2730 ml 4200 ml Output Total 4000 ml 6600 ml Balance 200 ml -1270 ml -2400 ml Results Result Diagram: 08/08/17 0431 Results 24 hrs Laboratory Tests Test 08/07/17 23:14 08/08/17 04:31 Vancomycin Level Trough 11.8 Blood Urea Nitrogen 16 Creatinine 0.67 Medications Medications Current Medications Ondansetron HCl (Zofran Inj) 4 mg Q6H PRN IV NAUSEA AND/OR VOMITING; Start 10/30 at 19:30 Acetaminophen (Tylenol Tab) 650 mg Q6H PRN PO PAIN LEVEL 1-3 OR FEVER; Start at 19:30 Docusate Sodium (Colace) 100 mg Q12H PRN PO CONSTIPATION; Start 07/26/17 at 19: 30 Magnesium Hydroxide (Milk Of Mag) 30 ml DAILY PRN PO CONSTIPATION Last administered on 07/28/17 06:35; Admin Dose 30 ML; Start 07/26/17 at 19:30 Sodium Biphosphate/ Sodium Phosphate (Fleet Enema) 133 ml DAILY PRN [place] CONSTIPATION Last administered on 08/03/17 10:09; Admin Dose 133 ML; Start 10/30 at 19:30 Lorazepam 0.5 mg 0.5 mg Q6H PRN IV ANXIETY; Start 07/26/17 at 19:30 Sodium Chloride (NS) 1,000 ml @ 100 mls/hr Q10H IV Last administered on 22:42; Admin Dose 100 MLS/HR; Start 07/26/17 at 19:24 Vancomycin HCl (Vanco Iv Per Pharmacy) VANCOMYCIN PER PHARMACY NOTE XX ; Start 07/26/17 at 19:30 Hydralazine HCl (Apresoline) 10 mg Q6H PRN IV ELEVATED BLOOD PRESSURE; Start at 19:30 Nitroglycerin (Nitroglycerin (Sl Tab) 0.4 Mg) 1 tab Q5M PRN SL ANGINA; Start at 19:30 Baclofen (Lioresal) 20 mg BID PO Last administered on 08/08/17 07:56; Admin Dose 20 MG; Start 07/26/17 at 21:00 Gabapentin (Neurontin) 600 mg QID PO Last administered on 08/08/17 13:15; Admin Dose 600 MG; Start 07/26/17 at 21:00 Tolterodine Tartrate (Detrol La) 2 mg DAILY PO Last administered on 08/08/17 07:55; Admin Dose 2 MG; Start 07/27/17 at 09:00 Collagenase (Santyl) 1 applic DAILY TOP Last administered on 08/08/17 09:00; Admin Dose 1 APPLIC; Start 07/27/17 at 09:00 Collagenase (Santyl) 1 applic PRN PRN TOP SOILED Last administered on 06:13; Admin Dose 1 APPLIC; Start 07/27/17 at 04:00 Pantoprazole (Protonix Tab) 40 mg DAILY@06 PO Last administered on 08/08/17 05 :52; Admin Dose 40 MG; Start 07/28/17 at 06:00 Nicotine (Nicoderm 21 Mg/ 24hr) 1 patch DAILY TRANSDERM Last administered on 07:56; Admin Dose 1 PATCH; Start 07/27/17 at 09:00 Cholestyramine Resin (Questran) 1 pkt DAILY PO Last administered on 08/08/17 08:04; Admin Dose 1 PKT; Start 07/27/17 at 11:00 Collagenase 1 applic 1 applic DAILY TOP Last administered on 08/08/17 09:00; Admin Dose 1 APPLIC; Start 07/27/17 at 14:30 Ceftriaxone Sodium (Rocephin) 50 ml @ 100 mls/hr DAILY IVPB Last administered on 08/08/17 10:01; Admin Dose 100 MLS/HR; Start 07/28/17 at 09:00; Stop at 12:00 Enoxaparin Sodium (Lovenox) 40 mg DAILY SC Last administered on 08/08/17 07:55 ; Admin Dose 40 MG; Start 07/28/17 at 13:00 Sodium Hypochlorite (Dakin'S (1/4 Strength)) 1 applic DAILY IRR Last administered on 08/08/17 09:00; Admin Dose 1 APPLIC; Start 07/31/17 at 09:00 Hydromorphone HCl (Dilaudid) 1 mg Q2H PRN IV PAIN Last administered on 15:24; Admin Dose 1 MG; Start 07/31/17 at 11:00 Acetaminophen/ Hydrocodone Bitart ([place] (10/325)) 1 tab Q4H PRN PO PAIN Last administered on 08/08/17 14:18; Admin Dose 1 TAB; Start 07/31/17 at 10:30 IV Flush 10 ml 10 ml PRN PRN IV IV PROTOCOL; Start 08/03/17 at 18:00 Vancomycin HCl/ Sodium Chloride (Vancocin/NS) 150 ml @ 75 mls/hr Q8H IVPB Last administered on 08/08/17 07:54; Admin Dose 75 MLS/HR; Start 08/06/17 at 16 :00 IVANA REA NP Aug 08, 2017 15:54
[2017-08-08] MEDS: SOD CHLORIDE 0.9% 1,000 ML IV SCH (17:24)
[2017-08-08 21:02] VITALS: BP 98/56; RESP 18
== END 2017-08-08 21:38 | DRG 570 ==
LOC: E/R 12:19 → PP2 19:19
PROVIDERS: ADMIT Hospitalist; ATTEND Hospitalist
PROC: 0T9B70Z Drainage of Bladder with Drainage Device, Via Natural or Artificial Opening (ICD-10-PCS; 2017-07-27)
PROC: 0JJT3ZZ Inspection of Trunk Subcutaneous Tissue and Fascia, Percutaneous Approach (ICD-10-PCS; 2017-07-29)
PROC: 0JB90ZZ Excision of Buttock Subcutaneous Tissue and Fascia, Open Approach (ICD-10-PCS; principal; 2017-07-29 12:30)
PROC: 02HV33Z Insertion of Infusion Device into Superior Vena Cava, Percutaneous Approach (ICD-10-PCS; 2017-08-03)
DX: L89.323 Pressure ulcer of left buttock, stage 3 (principal); G82.20 Paraplegia, unspecified; N31.8 Other neuromuscular dysfunction of bladder; S24.103S Unspecified injury at T7-T10 level of thoracic spinal cord, sequela; M86.8X8 Other osteomyelitis, other site; L89.153 Pressure ulcer of sacral region, stage 3; R31.0 Gross hematuria; R33.8 Other retention of urine; E87.6 Hypokalemia; K59.00 Constipation, unspecified; F17.200 Nicotine dependence, unspecified, uncomplicated; V29.9XXS Motorcycle rider (driver) (passenger) injured in unspecified traffic accident, sequela; Z99.3 Dependence on wheelchair
CPT/HCPCS: 36415; 36569; 71010; 72193; 74000; 76937; 80048; 80053; 80061; 80202; 81001; 82565; 83036; 83735; 84100; 84439; 84443; 84520; 85025; 85610; 85730; 87040; 87081; 87086; 96374; 96375; 96376; A4310; C9113; J0696; J1170; J1650; J2405; J3010; J3370; J7030; J7999; Q9967

== ENCOUNTER 2017-12-13 02:05 | Inpatient (IN) | END 2017-12-20 16:35 | DRG 853 ==

== ENCOUNTER 2018-03-05 10:37 | Inpatient (IN) | END 2018-03-08 16:40 | DRG 871 ==

== ENCOUNTER 2018-03-10 16:55 | Inpatient (IN) | END 2018-03-14 15:55 | DRG 871 ==

== ENCOUNTER 2018-03-18 14:42 | Emergency (ER) | END 2018-03-18 21:15 | disposition home or self-care (01) ==

== ENCOUNTER 2018-03-20 12:02 | Emergency (ER) | END 2018-03-20 14:53 | disposition home or self-care (01) ==

== ENCOUNTER 2018-03-21 18:04 | Inpatient (IN) | END 2018-03-27 14:25 | DRG 602 ==

== ENCOUNTER 2018-09-28 08:44 | Inpatient (IN) | END 2018-10-04 16:00 | DRG 698 ==

== ENCOUNTER 2019-01-12 11:07 | Inpatient (IN) | payer MEDICARE, OTHER ==
[~2019-01-12] VITALS: Ht 182.9 cm; Wt 87.3 kg
[~2019-01-12 11:07] MED LIST: ACET-2047 PO; AMIN30LI PO; ARGI1POW19 PO; ASCO500C7 PO; ASPI-903 PO; BACL10TA PO; CHOL378P PO; DOCU-144 PO; GABA-526 PO; HYDR-4011 PO; HYDR2TAB36 PO; LACT1CAP28 PO; POLY17PO6 PO; Pending Collagenase Order XX; TOLT2CAP15 PO; ZINC220C5 PO
[2019-01-12] MEDS ORDERED: SODIUM CHLORIDE 0.9% 1L BAG IV* STA (11:08)
[2019-01-12] MEDS ORDERED: CEFEPIME 2GM/50 ML (PMX) 50 ML IVPB STA (11:08)
[2019-01-12] MEDS ORDERED: LIDO700A29 TP (11:29)
[2019-01-12] MEDS ORDERED: VANCOMYCIN 1 GM (PMX) 250 ML IVPB ONE (11:30)
[2019-01-12] MEDS ORDERED: LIDOCAINE 1% (MPF) 5 ML VIAL SC ONE (11:30)
[2019-01-12] MEDS ORDERED: HYDROmorphONE 2 MG TAB PO ONE (12:30)
[2019-01-12] MEDS ORDERED: ACETAMINOPHEN 325 MG TAB PO PRN ×2 (12:30→13:00)
[2019-01-12] MEDS ORDERED: ONDANSETRON 4 MG INJ IV PRN ×2 (12:30→13:00)
[2019-01-12] MEDS ORDERED: HYDROmorphONE 0.5 MG/0.5 ML SYG IV PRN (13:00)
[2019-01-12] MEDS ORDERED: VANCOMYCIN IV PER PHARMACY XX SCH (13:00)
[2019-01-12] MEDS ORDERED: NACL 0.9% 3 ML SYG IV SCH (13:00)
[2019-01-12] MEDS ORDERED: OXYCODONE/ACETAMINOPHEN (5/325) TAB PO PRN (13:00)
--- NOTE | 2019-01-12 13:08 | ERD ---
ER Documentation Chief Complaint Chief Complaint abdnormal MRI hx of osteomyelitis HPI 48-year-old paraplegic gentleman who presents to the emergency room complaining of MRI showing evidence of osteo-myelitis P the patient recently completed an antibiotic course at the end of November for similar. The patient had an MRI earlier this week showing evidence of pelvic osteomyelitis. He denies any fevers chills or pain at this time. He was sent to the emergency room by his managing provider Dr. Mckeon for admission and ID consultation. ROS All systems reviewed and are negative except as per history of present illness. Medications Home Meds Active Scripts Lactobacillus Rhamnosus GG (Culturelle) 1 Each Capsule, 1 CAP PO BID for 30 Days, #30 CAP Prov:RABIA BARAHONA MD 10/03/18 Reported Medications Lidocaine (Lidoderm) 1 Each Adh..patch, 1 EACH TP DAILY 01/12/19 Zinc Sulfate* (Zinc Sulfate*) 220 Mg Cap, 220 MG PO DAILY, CAP 03/21/18 Ascorbic Acid* (Vitamin C*) 500 Mg Capsule.sa, 500 MG PO DAILY, CAP 03/21/18 Amino Acids/Protein Hydrolys (PRO-STAT LIQUID) 30 Ml Liquid.pkt, 30 ML PO BID 03/21/18 Hydromorphone Hcl* (Dilaudid*) 2 Mg Tablet, 2 MG PO Q4H PRN for PAIN, TAB 03/21/18 Tolterodine Tartrate* (Detrol LA*) 2 Mg Cap.sr.24h, 2 MG PO DAILY, #30 CAP 03/21/18 Docusate Sodium* (Colace*) 100 Mg Capsule, 100 MG PO BID, #60 CAP 03/21/18 Cholestyramine* (Cholestyramine* Powder) 378 Gm Powder, 4 GM PO DAILY, EA 03/21/18 Aspirin* (Aspirin* Chew) 81 Mg Tab.chew, 81 MG PO DAILY, TAB.CHEW 03/21/18 Arginine/Ascorbate Sod/Stevie AC (Arginaid Powder) 1 Each Powd.pack, 1 EACH PO BID 03/21/18 Acetaminophen* (Acetaminophen*) 650 Mg Tablet, 650 MG PO Q4 PRN for PAIN AND OR ELEVATED TEMP, #30 TAB 03/21/18 Hydrocodone/Acetaminophen ([place] 5-325 Tablet) 1 Each Tablet, 2 EACH PO Q6 PRN for SEVERE PAIN LEVEL 7-10, TAB 03/10/18 Polyethylene Glycol* (Miralax*) 17 Gm Powd.pack, 17 GM PO DAILY, #30 PACKET 03/10/18 Baclofen* (Baclofen*) 10 Mg Tablet, 10 MG PO QID, TAB 03/10/18 Gabapentin* (Gabapentin*) 600 Mg Tablet, 600 MG PO QID, #60 TAB 07/26/17 Discontinued Scripts [Pending Collagenase Order] 1 EA EACH No Conflict Check, 0 EA XX PRN PRN for SOILING OF WOUND for 14 Days, #14 Prov:RABIA BARAHONA MD 10/03/18 Allergies Allergies: Coded Allergies: adhesive tape (Unverified Allergy, Unknown, 09/27/18) amoxicillin (Unverified Allergy, Unknown, 09/27/18) clavulanic acid (Unverified Allergy, Unknown, 09/27/18) morphine (Unverified Allergy, Unknown, 09/27/18) PMhx/Soc History of Surgery: Yes (SKIN FLAP) Anesthesia Reaction: No Hx Neurological Disorder: Yes (PARAPLEGIA, NEUROPATHY) Hx Respiratory Disorders: No Hx Cardiac Disorders: Yes (HTN, AFIB) Hx Psychiatric Problems: Yes (BIPOLAR, ETOH ABUSE) Hx Miscellaneous Medical Probl: Yes (FREQUENT UTI'S, MRSA, OSTEOMYELITIS, MULTIPLE DECUBITUS ULCERS) Hx Alcohol Use: Yes Hx Substance Use: No Hx Tobacco Use: Yes Smoking Status: Smoker,current status unk FmHx Family History: No diabetes Physical Exam Vitals Vital Signs Date Temp Pulse Resp B/P (MAP) Pulse Ox O2 O2 Flow FiO2 Time Delivery Rate 01/12/19 98.3 82 18 132/80 95 11:17 (97) Physical Exam General: Well developed, well nourished, no acute distress Head: Normocephalic, atraumatic. Eyes: Pupils equally reactive, EOM intact ENT: Moist mucous membranes Neck: Supple, no lymphadenopathy Respiratory: Lungs clear bilaterally, no distress Cardiovascular: RRR, no murmurs, rubs, or gallops Abdominal: Soft, non-tender, non-distended, no peritoneal signs : Deferred MSK: No edema, no unilateral swelling, paraplegia Neurologic: Alert and oriented, paraplegia Skin: No rash Psych: Normal mood Result Diagram: 01/12/19 1200 01/12/19 1200 Results 24 hrs Laboratory Tests Test 01/12/19 12:00 01/12/19 12:02 01/12/19 12:05 White Blood Count 8.1 10^3/ul Red Blood Count 5.52 10^6/ul Hemoglobin 16.0 g/dl Hematocrit 48.8 % Mean Corpuscular Volume 88.4 fl Mean Corpuscular Hemoglobin 29.0 pg Mean Corpuscular Hemoglobin Concent 32.8 g/dl Red Cell Distribution Width 13.6 % Platelet Count 244 10^3/UL Mean Platelet Volume 10.6 fl Immature Granulocytes % 0.200 % Neutrophils % 66.7 % Lymphocytes % 22.1 % Monocytes % 6.4 % Eosinophils % 4.1 % Basophils % 0.5 % Nucleated Red Blood Cells % 0.0 /100WBC Immature Granulocytes # 0.020 10^3/ul Neutrophils # 5.4 10^3/ul Lymphocytes # 1.8 10^3/ul Monocytes # 0.5 10^3/ul Eosinophils # 0.3 10^3/ul Basophils # 0.0 10^3/ul Nucleated Red Blood Cells # 0.0 10^3/ul Prothrombin Time 11.7 Sec Prothrombin Time Ratio 0.9 INR International Normalized Ratio 0.85 Activated Partial Thromboplast Time 27.8 Sec Sodium Level 142 mmol/L Potassium Level 4.4 mmol/L Chloride Level 106 mmol/L Carbon Dioxide Level 28 mmol/L Anion Gap 8 Blood Urea Nitrogen 19 mg/dl Creatinine 0.74 mg/dl Est Glomerular Filtrat Rate mL/min > 60 mL/min Glucose Level 100 mg/dl Calcium Level 10.3 mg/dl Total Bilirubin 0.1 mg/dl Direct Bilirubin 0.00 mg/dl Indirect Bilirubin 0.1 mg/dl Aspartate Amino Transf (AST/SGOT) 24 IU/L Alanine Aminotransferase (ALT/SGPT) 22 IU/L Alkaline Phosphatase 104 IU/L C-Reactive Protein 1.3 mg/dl Total Protein 7.8 g/dl Albumin 4.5 g/dl Globulin 3.30 g/dl Albumin/Globulin Ratio 1.36 POC Venous Lactate 1.7 mmol/L Erythrocyte Sedimentation Rate 10 mm/Hr Current Medications Medications Dose Sig/Emmanuel Start Time Status Last (Trade) Ordered Route PRN Stop Time Admin Dose Reason Admin Sodium 2,530 ml BOLUS OVER 2 01/12/19 DC 01/12/19 Chloride HOURS STAT 11:08 01/12/19 12:14 (NS) IV* 11:10 Cefepime HCl 50 ml @ ONCE STAT 01/12/19 DC 01/12/19 100 mls/hr IVPB 11:08 01/12/19 12:14 11:37 Vancomycin 250 ml @ ONCE ONCE 01/12/19 DC 01/12/19 HCl 125 mls/hr IVPB 11:30 01/12/19 13:16 13:29 Lidocaine 5 ml ONCE ONCE 01/12/19 DC (Xylocaine SC 11:30 01/12/19 1% (Mpf)) 11:31 2 mg ONCE ONCE 01/12/19 DC 01/12/19 Hydromorphone PO 12:30 01/12/19 12:34 HCl 12:31 (Dilaudid) Ondansetron 4 mg BRIDGE ORDER 01/12/19 HCl (Zofran PRN IV 12:30 01/13/19 Inj) NAUSEA/VOMITI 12:29 NG 650 mg ER BRIDGE 01/12/19 Acetaminophen PRN PO 12:30 01/13/19 (Tylenol .MILD PAIN 12:29 Tab) 1-3 OR TEMP Vancomycin VANCOMYCIN PER 01/12/19 HCl (Vanco PER PHARMACY PROTOCOL XX 13:00 Iv Per Pharmacy) Cefepime HCl 50 ml @ Q12 IVPB 01/12/19 100 mls/hr 21:00 IV Flush 3 ml PER 01/12/19 (NS 3 ml) PROTOCOL IV 13:00 Ondansetron 4 mg Q6H PRN 01/12/19 HCl (Zofran IV 13:00 Inj) NAUSEA/VOMITI NG 650 mg Q6H PRN 01/12/19 Acetaminophen PO .PAIN 1-3 13:00 (Tylenol OR TEMP Tab) Oxycodone/ 2 tab Q6H PRN 01/12/19 Acetaminophen PO .PAINS 13:00 (Percocet 7-10 (5/ 325)) 0.5 mg Q4H PRN 01/12/19 Hydromorphone IV .PAIN 13:00 HCl 7-10 (Dilaudid) Ascorbic 500 mg DAILY PO 01/13/19 Acid 09:00 (Vitamin C) Aspirin 81 mg DAILY PO 01/13/19 (Aspirin) 09:00 Baclofen 10 mg QID PO 01/12/19 (Lioresal) 13:00 Docusate 100 mg BID PO 01/12/19 Sodium 21:00 (Colace) Gabapentin 600 mg QID PO 01/12/19 (Neurontin) 13:00 Tolterodine 2 mg DAILY PO 01/13/19 Tartrate 09:00 (Detrol La) Zinc 220 mg DAILY PO 01/13/19 Sulfate 09:00 (Zinc Sulfate) 1 pkt DAILY PO 01/13/19 Cholestyramin 09:00 e Resin (Questran) Vancomycin 250 ml @ Q8H IVPB 01/12/19 HCl 125 mls/hr 17:30 Procedures/MDM EKG, MONITORS, & DIAGNOSTIC IMAGING: EKG: I reviewed and interpreted a 12-lead EKG. Rhythm: Normal sinus rhythm ST Changes: No contiguous ST segment elevations T waves: No contiguous T wave inversions Impression: [No evidence of acute cardiac ischemia] LAB INTERPRETATION: I reviewed the laboratory testing and it shows mild CRP elevation MEDICAL DECISION MAKING: The patient was given empiric broad-spectrum antibiotics. Pain control medication. He will be admitted for further management. ER COURSE: * The patient does not meet diagnostic criteria of sepsis in the emergency room setting. He was given IV fluids, broad-spectrum antibiotics CONSULTATION: [None] DISPOSITION PLAN: Accepting care team and consultations: I discussed the current laboratory data, diagnostic imaging and emergency care provided. Admitting team: Dr. Luciano Admitting team indication: Insurance directed Departure Diagnosis: Primary Impression: Paraplegia following spinal cord injury Additional Impressions: Decubitus ulcer Pressure injury location: unspecified location Pressure injury stage: unspecified pressure injury stage Qualified Codes: L89.90 - Pressure ulcer of unspecified site, unspecified stage Osteomyelitis Osteomyelitis type: unspecified type Osteomyelitis location: unspecified site Qualified Codes: M86.9 - Osteomyelitis, unspecified Condition: Stable FAMILIA STOREY MD Jan 12, 2019 13:08
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
[2019-01-12] MEDS: GABAPENTIN 300 MG CAP PO SCH ×3 (14:52→21:25)
[2019-01-12] MEDS: BACLOFEN 10 MG TAB PO SCH ×3 (14:52→21:26)
--- NOTE | 2019-01-12 16:42 | CONS ---
DATE OF ADMISSION: 01/12/2019 DATE OF CONSULTATION: 01/12/2019 TYPE OF CONSULTATION: Infectious disease. REASON FOR CONSULTATION: Antibiotic management. HISTORY OF PRESENT ILLNESS: Sebastian Brewster is a 48-year-old male who comes in with abnormal MRI and history of osteomyelitis. He is a 48-year-old paraplegic gentleman who has an MRI showing eviden ce of osteomyelitis. He has recently completed an antibiotic course at the end of 11/2018 for this. He had an MRI earlier this week showing evidence of pelvic osteomyelitis. He denies fever, chills o r pain. ____ sent him for admission and for ID consultation. Past problems include: 1. Paraplegia. 2. Neuropathy. 3. History of skin flap. 4. Hypertension. 5. Atrial fibrillation. 6. Bipolar affective. 7. EtOH abuse. 8. Frequent UTIs, MRSA osteomyelitis, multiple decubitus ulcers. On admission, his white count was 8.1, H and H of 16 and 48.8, platelet count 244,000. BUN and creat inine is 19/0.74, glucose random of 100. PAST MEDICAL HISTORY: Operations as outlined. FAMILY HISTORY: Noncontributory. SOCIAL HISTORY: He is a smoker everyday. He does not drink or abuse drugs. ALLERGIES: NONE TO PENICILLIN, SULFA OR FOODS. MEDICATIONS: Per chart. REVIEW OF SYSTEMS: As per HPI. PHYSICAL EXAMINATION: GENERAL: The patient is a well-developed, well-nourished male who is awake, responsive, in no acute distress. VITAL SIGNS: Stable. He is afebrile. SKIN: Without generalized rash. HEENT: Within normal limits. NECK: Supple. LYMPH NODES: None palpable. CHEST: Decreased breath sounds at the bases. HEART: Without murmur or gallop. ABDOMEN: Soft, nontender without organosplenomegaly or masses. EXTREMITIES: Without cyanosis, clubbing or edema. RECTAL AND GENITAL: Deferred. NEUROLOGICAL: The patient is paraplegic. ANCILLARY LABORATORY DATA: White count was 8.1 with 67% neutrophils. The patient was started on van comycin and cefepime. Cultures are pending of the wound and blood cultures. IMPRESSION AND PLAN: We need to get an MRI scan. Recent MRI of the wound area of the pelvis, we kaushik l get records from the other hospital. Of note is the fact ____ report from recent MRI. As noted, ciro marcelino has significant osteomyelitis in the area of his decubitus ulcer. He was sent here for recurrent o steomyelitis of the pelvic region. He is going to need PICC line for broad spectrum antibiotics. Dr Luca Zhang has been consulted for assessment of abscess versus phlegmon. An MRI was reviewed from the outside hospital. He may need some new imaging done. We will continue him on current therapy. I wi ll dictate my findings to the hospitalist and to Dr. Zhang. Dictated By: LIDA BURNHAM MD, JD/NTS Conf#: [id number] DID#: [id number] CC: FAMILIA STOREY MD;*End*
[2019-01-12] MEDS: VANCOMYCIN 1 GM (PMX) 250 ML IVPB SCH (17:30)
[2019-01-12 18:35] VITALS: BP 135/63; PULSE 68; RESP 18
[2019-01-12 20:00] VITALS: BP 130/64; PULSE 70; RESP 18
[2019-01-12 21:00] VITALS: Ht 182.9 cm; Wt 87.3 kg
[2019-01-12] MEDS: oxyCODONE (CR) 10 MG TAB [oxyCONTIN] PO SCH (21:24)
[2019-01-12] MEDS: DOCUSATE SODIUM 100 MG CAP PO SCH (21:25)
[2019-01-12] MEDS: CEFEPIME 1GM/50 ML (PMX) 50 ML IVPB SCH (21:27)
[2019-01-12] MEDS ORDERED: CHOLESTYRAMINE 4 GM PACKET PO ONE (22:00)
[2019-01-12] MEDS: HYDROmorphONE 2 MG/ML SYG IV PRN (23:37)
[2019-01-13] MEDS: VANCOMYCIN 1 GM (PMX) 250 ML IVPB SCH ×3 (01:24→17:01)
[2019-01-13 02:12] VITALS: BP 120/64; PULSE 73; RESP 18
[2019-01-13] MEDS: HYDROmorphONE 2 MG/ML SYG IV PRN ×4 (03:50→21:13)
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
[2019-01-13 08:00] VITALS: BP 117/61; PULSE 82; RESP 20
[2019-01-13] MEDS: ASCORBIC ACID 500 MG TAB PO SCH (08:29)
[2019-01-13] MEDS: DOCUSATE SODIUM 100 MG CAP PO SCH ×2 (08:29→20:15)
[2019-01-13] MEDS: oxyCODONE (CR) 10 MG TAB [oxyCONTIN] PO SCH ×2 (08:29→20:15)
[2019-01-13] MEDS: ZINC SULFATE 220 MG CAP PO SCH (08:29)
[2019-01-13] MEDS: GABAPENTIN 300 MG CAP PO SCH ×4 (08:29→20:14)
[2019-01-13] MEDS: ASPIRIN 81 MG TAB PO SCH (08:29)
[2019-01-13] MEDS: BACLOFEN 10 MG TAB PO SCH ×4 (08:29→20:15)
[2019-01-13] MEDS: CEFEPIME 1GM/50 ML (PMX) 50 ML IVPB SCH ×2 (08:30→21:12)
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
[2019-01-13] MEDS ORDERED: SOD CHLORIDE 0.9% 1,000 ML IV SCH (10:30)
[2019-01-13] MEDS: CHOLESTYRAMINE 4 GM PACKET PO SCH (10:54)
[2019-01-13] MEDS: TOLTERODINE (SR) 2 MG CAP PO SCH (10:55)
--- NOTE | 2019-01-13 13:48 | CONS ---
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 MULTI DRUG RESISTANT ORGANISM Organism 2 COAGULASE NEGATIVE STAPH QUANTITY SCANT GROWTH MRSA COAG NEG M.I.C. RX M.I.C. RX --------- --- --------- --- CEFAZOLIN R R CIPROFLOXACIN >=8 R 2 I CLINDAMYCIN R <=0.25 S DOXYCYCLINE S S ERYTHROMYCIN >=8 R <=0.25 S LEVOFLOXACIN >=8 R 4 R OXACILLIN >=4 R >=4 R PENICILLIN-G >=0.5 R >=0.5 R RIFAMPIN <=0.5 S <=0.5 S VANCOMYCIN 1 S 1 S TRIMETHOPRIM/SULFAMETHOXAZOLE <=10 S <=10 S * 2017 LEFT HIP CXWOUND CULTURE Final Organism 1 STREP PYOGENES (GRP A) QUANTITY SCANT GROWTH Organism 2 STAPHYLOCOCCUS AUREUS QUANTITY SCANT GROWTH * 0 PHYSICAL EXAMINATION: GENERAL: VSS, A/A/AO, NAD HEENT: AT, NC, anicteric NECK: Supple, CHEST: Equal chest rise bilaterally, without dyspnea on observation HEART: Pulse RRR ABDOMEN: deferred EXTREMITIES: Paraplegia SKIN: No rash, no diaphoresis DECUB: SEE PHOTOS ID ASSESSMENT 48 yo M paraplegia admit with: 1. Hx of flap repair NOV 2018 == for hx of recurrent Left buttock/hip wound/sacral wound -- r/o Pelvic Osteomyelitis * ESR 01/12/19 not compelling for Osteomyelitis * Hx of recurrent wound infection-- Hx of (+)MRSA/(+)SABINA/(+) Strep Pyogenes/ (+)CoNS left buttock/hip decub * Hx of multiple prior dbridements w/ h/o recurrent infection of wound of L buttock due to MRSA, took prolonged course of IV vancomycin in the past 2. Neurogenic bladder due to paraplegia - hx of bladder diversion 3. Hx of prior UTIs- paraplegia 4. Peripheral vascular disease / PAD 5. Tobaccoism 6. Hx Left TKR 7. Hx of hernia repair (-)MRSA Nares SEP 2018 ABX ALLERGIES: Augmentin (amox/clav) INVASIVES: PIV CURRENT ABX: DAY #Vanco IV + Cefepime ID RECOMMENDATIONS/PLAN: 1. Continue current ABX 2. May need repeat imaging . Consultation Date/Type/Reason Admit Date/Time Jan 12, 2019 at 12:31 Initial Consult Date Date/Time of Note DATE: 01/13/19 TIME: 13:48 Exam/Review of Systems Exam Vitals Vital Signs Date Temp Pulse Resp B/P (MAP) Pulse Ox O2 O2 Flow FiO2 Time Delivery Rate 01/13/19 98.6 82 20 117/61 96 08:00 (79) 01/12/19 Room Air 15:36 Intake and Output 01/12/19 01/12/19 01/13/19 1515:00 23:00 07:00 IntakeIntake Total 1000 ml BalanceBalance 1000 ml Results Result Diagram: 01/13/19 0426 01/13/19 0426 Results 24hrs Laboratory Tests Test 01/12/19 19:40 01/13/19 04:26 Lactic Acid Level 2.1 *H White Blood Count 7.0 Red Blood Count 4.75 Hemoglobin 13.8 L Hematocrit 42.8 Mean Corpuscular Volume 90.1 Mean Corpuscular Hemoglobin 29.1 Mean Corpuscular Hemoglobin Concent 32.2 Red Cell Distribution Width 13.8 Platelet Count 187 # Mean Platelet Volume 10.8 H Immature Granulocytes % 0.100 Neutrophils % 53.4 Lymphocytes % 30.0 Monocytes % 7.4 Eosinophils % 8.2 H Basophils % 0.9 Nucleated Red Blood Cells % 0.0 Immature Granulocytes # 0.010 Neutrophils # 3.7 Lymphocytes # 2.1 Monocytes # 0.5 Eosinophils # 0.6 H Basophils # 0.1 Nucleated Red Blood Cells # 0.0 Sodium Level 139 Potassium Level 4.2 Chloride Level 108 Carbon Dioxide Level 23 Anion Gap 8 Blood Urea Nitrogen 16 Creatinine 0.68 Est Glomerular Filtrat Rate mL/min > 60 Glucose Level 86 Hemoglobin A1c 5.1 Calcium Level 8.6 Magnesium Level 2.2 Total Bilirubin 0.2 Direct Bilirubin 0.00 Indirect Bilirubin 0.2 Aspartate Amino Transf (AST/SGOT) 22 Alanine Aminotransferase (ALT/SGPT) 26 Alkaline Phosphatase 78 Total Protein 6.2 # Albumin 3.4 # Globulin 2.80 Albumin/Globulin Ratio 1.21 Medications Medication Current Medications Vancomycin HCl (Vanco Iv Per Pharmacy) VANCOMYCIN PER PHARMACY PER PROTOCOL XX ; Start 01/12/19 at 13:00 Cefepime HCl 50 ml @ 100 mls/hr Q12 IVPB Last administered on 01/13/19 08:30; Admin Dose 100 MLS/HR; Start 01/12/19 at 21:00 IV Flush (NS 3 ml) 3 ml PER PROTOCOL IV ; Start 01/12/19 at 13:00 Ondansetron HCl (Zofran Inj) 4 mg Q6H PRN IV NAUSEA/VOMITING; Start 01/12/19 at 13:00 Acetaminophen (Tylenol Tab) 650 mg Q6H PRN PO .PAIN 1-3 OR TEMP; Start 01/12/19 at 13:00 Ascorbic Acid (Vitamin C) 500 mg DAILY PO Last administered on 01/13/19 08:29; Admin Dose 500 MG; Start 01/13/19 at 09:00 Aspirin (Aspirin) 81 mg DAILY PO Last administered on 01/13/19 08:29; Admin Dose 81 MG; Start 01/13/19 at 09:00 Baclofen (Lioresal) 10 mg QID PO Last administered on 01/13/19 12:40; Admin Dose 10 MG; Start 01/12/19 at 13:00 Docusate Sodium (Colace) 100 mg BID PO Last administered on 01/13/19 08:29; Admin Dose 100 MG; Start 01/12/19 at 21:00 Gabapentin (Neurontin) 600 mg QID PO Last administered on 01/13/19 12:40; Admin Dose 600 MG; Start 01/12/19 at 13:00 Tolterodine Tartrate (Detrol La) 2 mg DAILY PO Last administered on 01/13/19 10:55; Admin Dose 2 MG; Start 01/13/19 at 09:00 Zinc Sulfate (Zinc Sulfate) 220 mg DAILY PO Last administered on 01/13/19 08:29; Admin Dose 220 MG; Start 01/13/19 at 09:00 Cholestyramine Resin (Questran) 1 pkt DAILY PO Last administered on 01/13/19 10:54; Admin Dose 1 PKT; Start 01/13/19 at 09:00 Vancomycin HCl 250 ml @ 125 mls/hr Q8H IVPB Last administered on 01/13/19 10:03; Admin Dose 125 MLS/HR; Start 01/12/19 at 17:30 Miscellaneous Information (*Rx Drug Level Order Reminder*) VANCO TR 01/13 AT 1700 ONCE ONCE XX ; Start 01/13/19 at 17:00; Stop 01/13/19 at 17:01 Oxycodone HCl (Oxycontin) 10 mg BID PO Last administered on 01/13/19 08:29; Admin Dose 10 MG; Start 01/12/19 at 21:00 Hydromorphone HCl (Dilaudid) 2 mg Q4 PRN PO PAIN LEVEL 1-3; Start 01/12/19 at 18:00 Hydromorphone HCl (Dilaudid) 2 mg Q4 PRN IV PAIN LEVEL 6-10 Last administered on 01/13/19 11:36; Admin Dose 2 MG; Start 01/12/19 at 18:00 Sodium Chloride 1,000 ml @ 60 mls/hr [id number] IV Last administered on 01/13/19 12:41; Admin Dose 60 MLS/HR; Start 01/13/19 at 10:30; Stop 01/14/19 at 03:09 BETSEY ROWE NP Jan 13, 2019 13:48
--- NOTE | 2019-01-13 13:53 | CONS ---
Assessment/Plan Assessment/Plan Assessment/Plan (Daily) This patient is still in the postoperative phase of a myocutaneous flap done at [facility]. His PICC line is in place. I believe it would be most prudent for him to return to his surgical team at [facility]. In the interim we should repeat the MRI with the hope of clarifying an outside reading of osteomyelitis and possible abscess. 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 He has done well and was discharged with IV antibiotics. Recently the PICC line was removed. 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 The patient himself is asymptomatic but knows he has not fully healed and is in need of IV antibiotics. His priority was to come in and have a PICC line replaced. He is also waiting for follow-up with his surgical team at [facility]. Constitutional: no complaints Eyes: no complaints ENT: no complaints Respiratory: no complaints Cardiovascular: no complaints Gastrointestinal: no complaints Genitourinary: other (Fully catheter) Musculoskeletal: other (As in the HPI) Skin: no complaints (As in the HPI) Neurologic: other (As in the HPI) Endocrine: no complaints Psychological: no complaints Past Medical History Medical History: other (Osteomyelitis) Home Meds Active Scripts Lactobacillus Rhamnosus GG (Culturelle) 1 Each Capsule, 1 CAP PO BID for 30 Days, #30 CAP Prov:RABIA BARAHONA MD 10/03/18 Reported Medications Lidocaine (Lidoderm) 1 Each Adh..patch, 1 EACH TP DAILY 01/12/19 Zinc Sulfate* (Zinc Sulfate*) 220 Mg Cap, 220 MG PO DAILY, CAP 03/21/18 Ascorbic Acid* (Vitamin C*) 500 Mg Capsule.sa, 500 MG PO DAILY, CAP 03/21/18 Amino Acids/Protein Hydrolys (PRO-STAT LIQUID) 30 Ml Liquid.pkt, 30 ML PO BID 03/21/18 Hydromorphone Hcl* (Dilaudid*) 2 Mg Tablet, 2 MG PO Q4H PRN for PAIN, TAB 03/21/18 Tolterodine Tartrate* (Detrol LA*) 2 Mg Cap.sr.24h, 2 MG PO DAILY, #30 CAP 03/21/18 Docusate Sodium* (Colace*) 100 Mg Capsule, 100 MG PO BID, #60 CAP 03/21/18 Cholestyramine* (Cholestyramine* Powder) 378 Gm Powder, 4 GM PO DAILY, EA 03/21/18 Aspirin* (Aspirin* Chew) 81 Mg Tab.chew, 81 MG PO DAILY, TAB.CHEW 03/21/18 Arginine/Ascorbate Sod/Stevie AC (Arginaid Powder) 1 Each Powd.pack, 1 EACH PO BID 03/21/18 Acetaminophen* (Acetaminophen*) 650 Mg Tablet, 650 MG PO Q4 PRN for PAIN AND OR ELEVATED TEMP, #30 TAB 03/21/18 Hydrocodone/Acetaminophen ([place] 5-325 Tablet) 1 Each Tablet, 2 EACH PO Q6 PRN for SEVERE PAIN LEVEL 7-10, TAB 03/10/18 Polyethylene Glycol* (Miralax*) 17 Gm Powd.pack, 17 GM PO DAILY, #30 PACKET 03/10/18 Baclofen* (Baclofen*) 10 Mg Tablet, 10 MG PO QID, TAB 03/10/18 Gabapentin* (Gabapentin*) 600 Mg Tablet, 600 MG PO QID, #60 TAB 07/26/17 Discontinued Scripts [Pending Collagenase Order] 1 EA EACH No Conflict Check, 0 EA XX PRN PRN for SOILING OF WOUND for 14 Days, #14 Prov:RABIA BARAHONA MD 10/03/18 Medications Current Medications Vancomycin HCl (Vanco Iv Per Pharmacy) VANCOMYCIN PER PHARMACY PER PROTOCOL XX ; Start 01/12/19 at 13:00 Cefepime HCl 50 ml @ 100 mls/hr Q12 IVPB Last administered on 01/13/19at 08:30; Admin Dose 100 MLS/HR; Start 01/12/19 at 21:00 IV Flush (NS 3 ml) 3 ml PER PROTOCOL IV ; Start 01/12/19 at 13:00 Ondansetron HCl (Zofran Inj) 4 mg Q6H PRN IV NAUSEA/VOMITING; Start 01/12/19 at 13:00 Acetaminophen (Tylenol Tab) 650 mg Q6H PRN PO .PAIN 1-3 OR TEMP; Start 01/12/19 at 13:00 Ascorbic Acid (Vitamin C) 500 mg DAILY PO Last administered on 01/13/19 08:29; Admin Dose 500 MG; Start 01/13/19 at 09:00 Aspirin (Aspirin) 81 mg DAILY PO Last administered on 01/13/19 08:29; Admin Dose 81 MG; Start 01/13/19 at 09:00 Baclofen (Lioresal) 10 mg QID PO Last administered on 01/13/19 12:40; Admin Dose 10 MG; Start 01/12/19 at 13:00 Docusate Sodium (Colace) 100 mg BID PO Last administered on 01/13/19 08:29; Admin Dose 100 MG; Start 01/12/19 at 21:00 Gabapentin (Neurontin) 600 mg QID PO Last administered on 01/13/19 12:40; Admin Dose 600 MG; Start 01/12/19 at 13:00 Tolterodine Tartrate (Detrol La) 2 mg DAILY PO Last administered on 01/13/19 10:55; Admin Dose 2 MG; Start 01/13/19 at 09:00 Zinc Sulfate (Zinc Sulfate) 220 mg DAILY PO Last administered on 01/13/19 08:29; Admin Dose 220 MG; Start 01/13/19 at 09:00 Cholestyramine Resin (Questran) 1 pkt DAILY PO Last administered on 01/13/19 10:54; Admin Dose 1 PKT; Start 01/13/19 at 09:00 Vancomycin HCl 250 ml @ 125 mls/hr Q8H IVPB Last administered on 01/13/19 10:03; Admin Dose 125 MLS/HR; Start 01/12/19 at 17:30 Miscellaneous Information (*Rx Drug Level Order Reminder*) VANCO TR 01/13 AT 1700 ONCE ONCE XX ; Start 01/13/19 at 17:00; Stop 01/13/19 at 17:01 Oxycodone HCl (Oxycontin) 10 mg BID PO Last administered on 01/13/19 08:29; Ad min Dose 10 MG; Start 01/12/19 at 21:00 Hydromorphone HCl (Dilaudid) 2 mg Q4 PRN PO PAIN LEVEL 1-3; Start 01/12/19 at 18:00 Hydromorphone HCl (Dilaudid) 2 mg Q4 PRN IV PAIN LEVEL 6-10 Last administered on 01/13/19at 11:36; Admin Dose 2 MG; Start 01/12/19 at 18:00 Sodium Chloride 1,000 ml @ 60 mls/hr [id number] IV Last administered on 01/13/19at 12:41; Admin Dose 60 MLS/HR; Start 01/13/19 at 10:30; Stop 01/14/19 at 03:09 Allergies: Coded Allergies: adhesive tape (Unverified Allergy, Unknown, 09/27/18) amoxicillin (Unverified Allergy, Unknown, 09/27/18) clavulanic acid (Unverified Allergy, Unknown, 09/27/18) morphine (Unverified Allergy, Unknown, 09/27/18) Past Surgical History Past Surgical Hx: other (Debridement graftings, flap) Family History Significant Family History: no pertinent family hx Social History Smoking Status: Current some day smoker Drug Use: none Exam/Review of Systems Exam Vitals Vital Signs Date Temp Pulse Resp B/P (MAP) Pulse Ox O2 O2 Flow FiO2 Time Delivery Rate 01/13/19 98.6 82 20 117/61 96 08:00 (79) 01/12/19 Room Air 15:36 Intake and Output 01/12/19 01/12/19 01/13/19 1414:59 22:59 06:59 IntakeIntake Total 1000 ml BalanceBalance 1000 ml Constitutional: alert, oriented Psych: no complaints Head: normocephalic Eyes: nl conjunctiva ENMT: nl external ears & nose Neck: supple Respiratory: clear to auscultation Cardiovascular: regular rate and rhythm Gastrointestinal: soft Musculoskeletal: other (There is a left buttock myocutaneous flap which is almost completely healed with the exception of a 3 mm sinus. There is no induration or erythema.) Neurological: other (Paraplegia) Results Result Diagram: 01/13/19 0426 01/13/19 0426 Results 24hrs Laboratory Tests Test 01/12/19 19:40 01/13/19 04:26 Lactic Acid Level 2.1 *H White Blood Count 7.0 Red Blood Count 4.75 Hemoglobin 13.8 L Hematocrit 42.8 Mean Corpuscular Volume 90.1 Mean Corpuscular Hemoglobin 29.1 Mean Corpuscular Hemoglobin Concent 32.2 Red Cell Distribution Width 13.8 Platelet Count 187 # Mean Platelet Volume 10.8 H Immature Granulocytes % 0.100 Neutrophils % 53.4 Lymphocytes % 30.0 Monocytes % 7.4 Eosinophils % 8.2 H Basophils % 0.9 Nucleated Red Blood Cells % 0.0 Immature Granulocytes # 0.010 Neutrophils # 3.7 Lymphocytes # 2.1 Monocytes # 0.5 Eosinophils # 0.6 H Basophils # 0.1 Nucleated Red Blood Cells # 0.0 Sodium Level 139 Potassium Level 4.2 Chloride Level 108 Carbon Dioxide Level 23 Anion Gap 8 Blood Urea Nitrogen 16 Creatinine 0.68 Est Glomerular Filtrat Rate mL/min > 60 Glucose Level 86 Hemoglobin A1c 5.1 Calcium Level 8.6 Magnesium Level 2.2 Total Bilirubin 0.2 Direct Bilirubin 0.00 Indirect Bilirubin 0.2 Aspartate Amino Transf (AST/SGOT) 22 Alanine Aminotransferase (ALT/SGPT) 26 Alkaline Phosphatase 78 Total Protein 6.2 # Albumin 3.4 # Globulin 2.80 Albumin/Globulin Ratio 1.21 Medications Medication Current Medications Vancomycin HCl (Vanco Iv Per Pharmacy) VANCOMYCIN PER PHARMACY PER PROTOCOL XX ; Start 01/12/19 at 13:00 Cefepime HCl 50 ml @ 100 mls/hr Q12 IVPB Last administered on 01/13/19at 08:30; Admin Dose 100 MLS/HR; Start 01/12/19 at 21:00 IV Flush (NS 3 ml) 3 ml PER PROTOCOL IV ; Start 01/12/19 at 13:00 Ondansetron HCl (Zofran Inj) 4 mg Q6H PRN IV NAUSEA/VOMITING; Start 01/12/19 at 13:00 Acetaminophen (Tylenol Tab) 650 mg Q6H PRN PO .PAIN 1-3 OR TEMP; Start 01/12/19 at 13:00 Ascorbic Acid (Vitamin C) 500 mg DAILY PO Last administered on 01/13/19at 08:29; Admin Dose 500 MG; Start 01/13/19 at 09:00 Aspirin (Aspirin) 81 mg DAILY PO Last administered on 01/13/19at 08:29; Admin Dose 81 MG; Start 01/13/19 at 09:00 Baclofen (Lioresal) 10 mg QID PO Last administered on 01/13/19at 12:40; Admin Dose 10 MG; Start 01/12/19 at 13:00 Docusate Sodium (Colace) 100 mg BID PO Last administered on 01/13/19 08:29; Admin Dose 100 MG; Start 01/12/19 at 21:00 Gabapentin (Neurontin) 600 mg QID PO Last administered on 01/13/19 12:40; Admin Dose 600 MG; Start 01/12/19 at 13:00 Tolterodine Tartrate (Detrol La) 2 mg DAILY PO Last administered on 01/13/19 10:55; Admin Dose 2 MG; Start 01/13/19 at 09:00 Zinc Sulfate (Zinc Sulfate) 220 mg DAILY PO Last administered on 01/13/19 08:29; Admin Dose 220 MG; Start 01/13/19 at 09:00 Cholestyramine Resin (Questran) 1 pkt DAILY PO Last administered on 01/13/19 10 :54; Admin Dose 1 PKT; Start 01/13/19 at 09:00 Vancomycin HCl 250 ml @ 125 mls/hr Q8H IVPB Last administered on 01/13/19 10:03; Admin Dose 125 MLS/HR; Start 01/12/19 at 17:30 Miscellaneous Information (*Rx Drug Level Order Reminder*) VANCO TR 01/13 AT 1700 ONCE ONCE XX ; Start 01/13/19 at 17:00; Stop 01/13/19 at 17:01 Oxycodone HCl (Oxycontin) 10 mg BID PO Last administered on 01/13/19 08:29; Admin Dose 10 MG; Start 01/12/19 at 21:00 Hydromorphone HCl (Dilaudid) 2 mg Q4 PRN PO PAIN LEVEL 1-3; Start 01/12/19 at 18:00 Hydromorphone HCl (Dilaudid) 2 mg Q4 PRN IV PAIN LEVEL 6-10 Last administered o n 01/13/19 11:36; Admin Dose 2 MG; Start 01/12/19 at 18:00 Sodium Chloride 1,000 ml @ 60 mls/hr [id number] IV Last administered on 01/13/19 12:41; Admin Dose 60 MLS/HR; Start 01/13/19 at 10:30; Stop 01/14/19 at 03:09 KAYKAY LUI MD Jan 13, 2019 13:53
[2019-01-13 14:00] VITALS: BP 118/72; PULSE 64; RESP 20
[2019-01-13 20:00] VITALS: BP 108/53; PULSE 78; RESP 19
[2019-01-13] MEDS ORDERED: ZOLPIDEM 5 MG TAB PO ONE (21:30)
[2019-01-14 02:00] VITALS: BP 105/63; PULSE 67; RESP 19
[2019-01-14] MEDS: HYDROmorphONE 2 MG/ML SYG IV PRN ×5 (02:19→18:48)
[2019-01-14] MEDS: VANCOMYCIN 1 GM (PMX) 250 ML IVPB SCH ×3 (02:19→17:15)
[2019-01-14 08:53] VITALS: BP 111/56; PULSE 72; RESP 18
[2019-01-14] MEDS: CHOLESTYRAMINE 4 GM PACKET PO SCH ×2 (09:00→09:04)
[2019-01-14] MEDS: TOLTERODINE (SR) 2 MG CAP PO SCH (09:03)
[2019-01-14] MEDS: CEFEPIME 1GM/50 ML (PMX) 50 ML IVPB SCH ×2 (09:03→20:27)
[2019-01-14] MEDS: oxyCODONE (CR) 10 MG TAB [oxyCONTIN] PO SCH ×2 (09:04→20:27)
[2019-01-14] MEDS: ASPIRIN 81 MG TAB PO SCH (09:04)
[2019-01-14] MEDS: DOCUSATE SODIUM 100 MG CAP PO SCH ×2 (09:04→20:26)
[2019-01-14] MEDS: GABAPENTIN 300 MG CAP PO SCH ×4 (09:04→20:26)
[2019-01-14] MEDS: ZINC SULFATE 220 MG CAP PO SCH (09:04)
[2019-01-14] MEDS: ASCORBIC ACID 500 MG TAB PO SCH (09:04)
[2019-01-14] MEDS: BACLOFEN 10 MG TAB PO SCH ×4 (09:04→20:27)
--- NOTE | 2019-01-14 09:59 | QN ---
Documentation Comment No significant change Patient is quite stable Repeat MRI being considered. Patient states that because he has a caval filter he will need open MRI Arrangements should be made for transfer to his surgical team at [facility] KAYKAY LUI MD Jan 14, 2019 09:59
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
[2019-01-14 14:00] VITALS: BP 124/69; PULSE 80; RESP 18
--- NOTE | 2019-01-14 16:29 | CONS ---
Assessment/Plan Assessment/Plan Hospital Course (Demo Recall) Patient is alert looks comfortable denies pain at the moment no fevers overnight. Cultures have been negative. Allergy: Augmentin Antimicrobials: Vancomycin, cefepime Indwelling: PICC line Physical examination: Well-nourished well-developed middle-aged white man who is alert in no distress. Head atraumatic normocephalic neck is supple chest rise symmetrical breath sounds clear heart S1-S2 abdomen soft bowel sounds present Assessment: 1. History of flap repair back in November [address] [facility] 2. 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 Neurogenic bladder secondary to paraplegia 4. History of left total knee replacement and hernia repair Plan: Patient remained stable, continue present care and antibiotics, follow surgical recommendations==> needs to be tx back to [facility] Consultation Date/Type/Reason Admit Date/Time Jan 12, 2019 at 12:31 Initial Consult Date 01/13/19 Type of Consult id Date/Time of Note DATE: 01/14/19 TIME: 16:28 Exam/Review of Systems Exam Vitals Vital Signs Date Temp Pulse Resp B/P (MAP) Pulse Ox O2 O2 Flow FiO2 Time Delivery Rate 01/14/19 98.4 80 18 124/69 95 Room Air 14:00 (87) Intake and Output 01/13/19 01/13/19 01/14/19 1515:00 23:00 07:00 IntakeIntake Total 2060 ml 890 ml OutputOutput Total 2600 ml 2000 ml BalanceBalance -540 ml -1110 ml Results Result Diagram: 01/14/19 0430 01/14/19 0429 Results 24hrs Laboratory Tests Test 01/14/19 00:33 01/14/19 04:29 01/14/19 04:30 Vancomycin Level Trough 14.1 Sodium Level 142 Potassium Level 4.2 Chloride Level 109 Carbon Dioxide Level 24 Anion Gap 9 Blood Urea Nitrogen 13 Creatinine 0.56 L Est Glomerular Filtrat Rate mL/min > 60 Glucose Level 84 Calcium Level 8.4 Phosphorus Level 3.5 Magnesium Level 2.2 White Blood Count 6.7 Red Blood Count 4.83 Hemoglobin 13.9 L Hematocrit 44.0 Mean Corpuscular Volume 91.1 Mean Corpuscular Hemoglobin 28.8 L Mean Corpuscular Hemoglobin Concent 31.6 L Red Cell Distribution Width 13.6 Platelet Count 153 Mean Platelet Volume 10.7 H Immature Granulocytes % 0.300 Neutrophils % 54.5 Lymphocytes % 28.8 Monocytes % 7.4 Eosinophils % 8.4 H Basophils % 0.6 Nucleated Red Blood Cells % 0.0 Immature Granulocytes # 0.020 Neutrophils # 3.6 Lymphocytes # 1.9 Monocytes # 0.5 Eosinophils # 0.6 H Basophils # 0.0 Nucleated Red Blood Cells # 0.0 Medications Medication Current Medications Vancomycin HCl (Vanco Iv Per Pharmacy) VANCOMYCIN PER PHARMACY PER PROTOCOL XX ; Start 01/12/19 at 13:00 Cefepime HCl 50 ml @ 100 mls/hr Q12 IVPB Last administered on 01/14/19 09:03; Admin Dose 100 MLS/HR; Start 01/12/19 at 21:00 IV Flush (NS 3 ml) 3 ml PER PROTOCOL IV ; Start 01/12/19 at 13:00 Ondansetron HCl (Zofran Inj) 4 mg Q6H PRN IV NAUSEA/VOMITING; Start 01/12/19 at 13:00 Acetaminophen (Tylenol Tab) 650 mg Q6H PRN PO .PAIN 1-3 OR TEMP; Start 01/12/19 at 13:00 Ascorbic Acid (Vitamin C) 500 mg DAILY PO Last administered on 01/14/19 09:04; Admin Dose 500 MG; Start 01/13/19 at 09:00 Aspirin (Aspirin) 81 mg DAILY PO Last administered on 01/14/19 09:04; Admin Dose 81 MG; Start 01/13/19 at 09:00 Baclofen (Lioresal) 10 mg QID PO Last administered on 01/14/19 12:51; Admin Dose 10 MG; Start 01/12/19 at 13:00 Docusate Sodium (Colace) 100 mg BID PO Last administered on 01/14/19 09:04; Admin Dose 100 MG; Start 01/12/19 at 21:00 Gabapentin (Neurontin) 600 mg QID PO Last administered on 01/14/19 12:51; Admin Dose 600 MG; Start 01/12/19 at 13:00 Tolterodine Tartrate (Detrol La) 2 mg DAILY PO Last administered on 01/14/19 09:03; Admin Dose 2 MG; Start 01/13/19 at 09:00 Zinc Sulfate (Zinc Sulfate) 220 mg DAILY PO Last administered on 01/14/19 09:04; Admin Dose 220 MG; Start 01/13/19 at 09:00 Cholestyramine Resin (Questran) 1 pkt DAILY PO Last administered on 01/13/19 10:54; Admin Dose 1 PKT; Start 01/13/19 at 09:00 Vancomycin HCl 250 ml @ 125 mls/hr Q8H IVPB Last administered on 01/14/19 10:01; Admin Dose 125 MLS/HR; Start 01/12/19 at 17:30 Oxycodone HCl (Oxycontin) 10 mg BID PO Last administered on 01/14/19 09:04; Admin Dose 10 MG; Start 01/12/19 at 21:00 Hydromorphone HCl (Dilaudid) 2 mg Q4 PRN PO PAIN LEVEL 1-3; Start 01/12/19 at 18:00 Hydromorphone HCl (Dilaudid) 2 mg Q4 PRN IV PAIN LEVEL 6-10 Last administered on 01/14/19 14:46; Admin Dose 2 MG; Start 01/12/19 at 18:00 Zolpidem Tartrate (Ambien) 10 mg HS PRN PO INSOMNIA; Start 01/14/19 at 11:30 IVANA REA NP Jan 14, 2019 16:29
[2019-01-14 20:33] VITALS: BP 102/56; PULSE 74; RESP 18
[2019-01-14] MEDS: ZOLPIDEM 5 MG TAB PO PRN (22:05)
[2019-01-14] MEDS ORDERED: ALTEPLASE (CATHFLO) 2 MG INJ CATHETER ONE (23:00)
[2019-01-15] MEDS: HYDROmorphONE 2 MG/ML SYG IV PRN ×4 (00:33→14:15)
[2019-01-15] MEDS: VANCOMYCIN 1 GM (PMX) 250 ML IVPB SCH ×3 (01:07→17:10)
[2019-01-15 02:13] VITALS: BP 114/55; PULSE 60; RESP 18
[2019-01-15 08:06] VITALS: BP 101/62; PULSE 74; RESP 18
[2019-01-15] MEDS: CHOLESTYRAMINE 4 GM PACKET PO SCH (09:04)
[2019-01-15] MEDS: DOCUSATE SODIUM 100 MG CAP PO SCH ×2 (09:04→20:09)
[2019-01-15] MEDS: ASPIRIN 81 MG TAB PO SCH (09:04)
[2019-01-15] MEDS: CEFEPIME 1GM/50 ML (PMX) 50 ML IVPB SCH ×2 (09:04→21:12)
[2019-01-15] MEDS: ASCORBIC ACID 500 MG TAB PO SCH (09:04)
[2019-01-15] MEDS: ZINC SULFATE 220 MG CAP PO SCH (09:04)
[2019-01-15] MEDS: BACLOFEN 10 MG TAB PO SCH ×4 (09:04→20:09)
[2019-01-15] MEDS: TOLTERODINE (SR) 2 MG CAP PO SCH (09:05)
[2019-01-15] MEDS: GABAPENTIN 300 MG CAP PO SCH ×4 (09:05→20:09)
[2019-01-15] MEDS: oxyCODONE (CR) 10 MG TAB [oxyCONTIN] PO SCH ×2 (09:05→20:10)
--- NOTE | 2019-01-15 10:39 | CONS ---
Assessment/Plan Assessment/Plan Hospital Course (Demo Recall) No acute changes over night, looks comfortable, no fevers Allergy: Augmentin Antimicrobials: Vancomycin, cefepime Indwelling: PICC line Physical examination: Well-nourished well-developed middle-aged white man who is alert in no distress. Head atraumatic normocephalic neck is supple chest rise symmetrical breath sounds clear heart S1-S2 abdomen soft bowel sounds present Assessment: 1. History of flap repair back in November 2018 done at [facility] 2. 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 Neurogenic bladder secondary to paraplegia 4. History of left total knee replacement and hernia repair Plan: Patient remained stable, needs open MRI, continue antibiotics, per surgical recommendations needs to be tx back to [facility] Consultation Date/Type/Reason Admit Date/Time Jan 12, 2019 at 12:31 Initial Consult Date 01/13/19 Type of Consult id Date/Time of Note DATE: 01/15/19 TIME: 10:37 Exam/Review of Systems Exam Vitals Vital Signs Date Temp Pulse Resp B/P (MAP) Pulse Ox O2 O2 Flow FiO2 Time Delivery Rate 01/15/19 98.3 74 18 101/62 99 Room Air 08:06 (75) Intake and Output 01/14/19 01/14/19 01/15/19 1515:00 23:00 07:00 IntakeIntake Total 800 ml 650 ml 1300 ml OutputOutput Total 2200 ml 2800 ml 2350 ml BalanceBalance -1400 ml -2150 ml -1050 ml Results Result Diagram: 01/15/19 0424 01/15/19 0424 Results 24hrs Laboratory Tests Test 01/15/19 04:24 White Blood Count 6.5 Red Blood Count 4.88 Hemoglobin 14.1 Hematocrit 43.9 Mean Corpuscular Volume 90.0 Mean Corpuscular Hemoglobin 28.9 L Mean Corpuscular Hemoglobin Concent 32.1 Red Cell Distribution Width 13.5 Platelet Count 181 Mean Platelet Volume 10.5 H Immature Granulocytes % 0.500 H Neutrophils % 53.3 Lymphocytes % 29.5 Monocytes % 7.7 Eosinophils % 8.2 H Basophils % 0.8 Nucleated Red Blood Cells % 0.0 Immature Granulocytes # 0.030 Neutrophils # 3.5 Lymphocytes # 1.9 Monocytes # 0.5 Eosinophils # 0.5 Basophils # 0.1 Nucleated Red Blood Cells # 0.0 Sodium Level 142 Potassium Level 4.1 Chloride Level 111 H Carbon Dioxide Level 24 Anion Gap 7 Blood Urea Nitrogen 12 Creatinine 0.49 L Est Glomerular Filtrat Rate mL/min > 60 Glucose Level 90 Calcium Level 8.9 Phosphorus Level 3.6 Magnesium Level 2.2 Medications Medication Current Medications Vancomycin HCl (Vanco Iv Per Pharmacy) VANCOMYCIN PER PHARMACY PER PROTOCOL XX ; Start 01/12/19 at 13:00 Cefepime HCl 50 ml @ 100 mls/hr Q12 IVPB Last administered on 01/15/19 09:04; Admin Dose 100 MLS/HR; Start 01/12/19 at 21:00 IV Flush (NS 3 ml) 3 ml PER PROTOCOL IV ; Start 01/12/19 at 13:00 Ondansetron HCl (Zofran Inj) 4 mg Q6H PRN IV NAUSEA/VOMITING; Start 01/12/19 at 13:00 Acetaminophen (Tylenol Tab) 650 mg Q6H PRN PO .PAIN 1-3 OR TEMP; Start 01/12/19 at 13:00 Ascorbic Acid (Vitamin C) 500 mg DAILY PO Last administered on 01/15/19 09:04; Admin Dose 500 MG; Start 01/13/19 at 09:00 Aspirin (Aspirin) 81 mg DAILY PO Last administered on 01/15/19 09:04; Admin Dose 81 MG; Start 01/13/19 at 09:00 Baclofen (Lioresal) 10 mg QID PO Last administered on 01/15/19 09:04; Admin Dose 10 MG; Start 01/12/19 at 13:00 Docusate Sodium (Colace) 100 mg BID PO Last administered on 01/15/19 09:04; Admin Dose 100 MG; Start 01/12/19 at 21:00 Gabapentin (Neurontin) 600 mg QID PO Last administered on 01/15/19 09:05; Admin Dose 600 MG; Start 01/12/19 at 13:00 Tolterodine Tartrate (Detrol La) 2 mg DAILY PO Last administered on 01/15/19 09:05; Admin Dose 2 MG; Start 01/13/19 at 09:00 Zinc Sulfate (Zinc Sulfate) 220 mg DAILY PO Last administered on 01/15/19 09:04; Admin Dose 220 MG; Start 01/13/19 at 09:00 Cholestyramine Resin (Questran) 1 pkt DAILY PO Last administered on 01/15/19 09:04; Admin Dose 1 PKT; Start 01/13/19 at 09:00 Vancomycin HCl 250 ml @ 125 mls/hr Q8H IVPB Last administered on 01/15/19 09:46; Admin Dose 125 MLS/HR; Start 01/12/19 at 17:30 Oxycodone HCl (Oxycontin) 10 mg BID PO Last administered on 01/15/19 09:05; Admin Dose 10 MG; Start 01/12/19 at 21:00 Hydromorphone HCl (Dilaudid) 2 mg Q4 PRN PO PAIN LEVEL 1-3; Start 01/12/19 at 18:00 Hydromorphone HCl (Dilaudid) 2 mg Q4 PRN IV PAIN LEVEL 6-10 Last administered on 01/15/19 10:08; Admin Dose 2 MG; Start 01/12/19 at 18:00 Zolpidem Tartrate (Ambien) 10 mg HS PRN PO INSOMNIA Last administered on 01/14/19 22:05; Admin Dose 10 MG; Start 01/14/19 at 11:30 IVANA REA NP Jan 15, 2019 10:39
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
[2019-01-15 14:42] VITALS: BP 106/57; PULSE 68; RESP 18
[2019-01-15 20:00] VITALS: BP 123/73; PULSE 92; RESP 18
[2019-01-15] MEDS: HYDROmorphONE 2 MG TAB PO PRN (20:10)
[2019-01-16] MEDS: HYDROmorphONE 2 MG TAB PO PRN (00:28)
[2019-01-16] MEDS: VANCOMYCIN 1 GM (PMX) 250 ML IVPB SCH ×3 (01:50→17:42)
[2019-01-16] MEDS: ZOLPIDEM 5 MG TAB PO PRN ×2 (01:54→23:37)
[2019-01-16 02:00] VITALS: BP 100/64; PULSE 69; RESP 18
[2019-01-16] MEDS: HYDROmorphONE 2 MG/ML SYG IV PRN ×4 (06:52→23:37)
[2019-01-16 08:10] VITALS: BP 130/89; PULSE 83; RESP 16
[2019-01-16] MEDS: ZINC SULFATE 220 MG CAP PO SCH (08:26)
[2019-01-16] MEDS: CHOLESTYRAMINE 4 GM PACKET PO SCH (08:26)
[2019-01-16] MEDS: TOLTERODINE (SR) 2 MG CAP PO SCH (08:26)
[2019-01-16] MEDS: CEFEPIME 1GM/50 ML (PMX) 50 ML IVPB SCH ×2 (08:26→20:21)
[2019-01-16] MEDS: DOCUSATE SODIUM 100 MG CAP PO SCH ×2 (08:26→20:21)
[2019-01-16] MEDS: GABAPENTIN 300 MG CAP PO SCH ×4 (08:26→20:22)
[2019-01-16] MEDS: ASCORBIC ACID 500 MG TAB PO SCH (08:26)
[2019-01-16] MEDS: oxyCODONE (CR) 10 MG TAB [oxyCONTIN] PO SCH ×2 (08:27→20:22)
[2019-01-16] MEDS: BACLOFEN 10 MG TAB PO SCH ×4 (08:27→20:22)
[2019-01-16] MEDS: ASPIRIN 81 MG TAB PO SCH (08:29)
--- NOTE | 2019-01-16 13:12 | CONS ---
Assessment/Plan Assessment/Plan Hospital Course (Demo Recall) Patient is alert, feels good, denies pain, no fevers overnight Allergy: Augmentin Antimicrobials: Vancomycin, cefepime Indwelling: PICC line Physical examination: Well-nourished well-developed middle-aged white man who is alert in no distress. Head atraumatic normocephalic neck is supple chest rise symmetrical breath sounds clear heart S1-S2 abdomen soft bowel sounds present Assessment: 1. History of flap repair back in November [address] [facility] 2. 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 Neurogenic bladder secondary to paraplegia 4. History of left total knee replacement and hernia repair Plan: Patient remained stable, continue antibiotics, per surgical recommenda tions needs to be tx back to [facility], pending arrangements Discussed with patient Consultation Date/Type/Reason Admit Date/Time Jan 12, 2019 at 12:31 Initial Consult Date 01/13/19 Type of Consult id Date/Time of Note DATE: 01/16/19 TIME: 13:11 Exam/Review of Systems Exam Vitals Vital Signs Date Temp Pulse Resp B/P (MAP) Pulse Ox O2 O2 Flow FiO2 Time Delivery Rate 01/16/19 97.8 83 16 130/89 95 08:10 (103) 01/15/19 Room Air 14:42 Intake and Output 01/15/19 01/15/19 01/16/19 1515:00 23:00 07:00 IntakeIntake Total 1260 ml 700 ml 250 ml OutputOutput Total 2200 ml 850 ml 2800 ml BalanceBalance -940 ml -150 ml -2550 ml Results Result Diagram: 01/15/19 0424 01/15/19 0424 Medications Medication Current Medications Vancomycin HCl (Vanco Iv Per Pharmacy) VANCOMYCIN PER PHARMACY PER PROTOCOL XX ; Start 01/12/19 at 13:00 Cefepime HCl 50 ml @ 100 mls/hr Q12 IVPB Last administered on 01/16/19at 08:26; Admin Dose 100 MLS/HR; Start 01/12/19 at 21:00 IV Flush (NS 3 ml) 3 ml PER PROTOCOL IV ; Start 01/12/19 at 13:00 Ondansetron HCl (Zofran Inj) 4 mg Q6H PRN IV NAUSEA/VOMITING; Start 01/12/19 at 13:00 Acetaminophen (Tylenol Tab) 650 mg Q6H PRN PO .PAIN 1-3 OR TEMP; Start 01/12/19 at 13:00 Ascorbic Acid (Vitamin C) 500 mg DAILY PO Last administered on 01/16/19 08:26; Admin Dose 500 MG; Start 01/13/19 at 09:00 Aspirin (Aspirin) 81 mg DAILY PO Last administered on 01/16/19 08:29; Admin Dose 81 MG; Start 01/13/19 at 09:00 Baclofen (Lioresal) 10 mg QID PO Last administered on 01/16/19 12:43; Admin Dose 10 MG; Start 01/12/19 at 13:00 Docusate Sodium (Colace) 100 mg BID PO Last administered on 01/16/19 08:26; Admin Dose 100 MG; Start 01/12/19 at 21:00 Gabapentin (Neurontin) 600 mg QID PO Last administered on 01/16/19 12:43; Admin Dose 600 MG; Start 01/12/19 at 13:00 Tolterodine Tartrate (Detrol La) 2 mg DAILY PO Last administered on 01/16/19 08:26; Admin Dose 2 MG; Start 01/13/19 at 09:00 Zinc Sulfate (Zinc Sulfate) 220 mg DAILY PO Last administered on 01/16/19 08:26; Admin Dose 220 MG; Start 01/13/19 at 09:00 Cholestyramine Resin (Questran) 1 pkt DAILY PO Last administered on 01/16/19 08:26; Admin Dose 1 PKT; Start 01/13/19 at 09:00 Vancomycin HCl 250 ml @ 125 mls/hr Q8H IVPB Last administered on 01/16/19 09:26; Admin Dose 125 MLS/HR; Start 01/12/19 at 17:30 Oxycodone HCl (Oxycontin) 10 mg BID PO Last administered on 01/16/19 08:27; Admin Dose 10 MG; Start 01/12/19 at 21:00 Hydromorphone HCl (Dilaudid) 2 mg Q4 PRN PO PAIN LEVEL 1-3 Last administered on 01/16/19 00:28; Admin Dose 2 MG; Start 01/12/19 at 18:00 Hydromorphone HCl (Dilaudid) 2 mg Q4 PRN IV PAIN LEVEL 6-10 Last administered on 01/16/19at 11:13; Admin Dose 2 MG; Start 01/12/19 at 18:00 Zolpidem Tartrate (Ambien) 10 mg HS PRN PO INSOMNIA Last administered on 01/16/19at 01:54; Admin Dose 10 MG; Start 01/14/19 at 11:30 Miscellaneous Information (*Rx Drug Level Order Reminder*) VANCO TROUGH 01/16 @ 1,630 ONCE ONCE XX ; Start 01/16/19 at 16:30; Stop 01/16/19 at 16:31 IVAAN REA NP Jan 16, 2019 13:12
[2019-01-16 15:22] VITALS: BP 100/58; PULSE 78; RESP 18
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
[2019-01-16] MEDS ORDERED: ALTEPLASE (CATHFLO) 2 MG INJ CATHETER PRN (18:00)
[2019-01-16 20:00] VITALS: BP 121/65; PULSE 77; RESP 18
[2019-01-17] MEDS: VANCOMYCIN 1 GM (PMX) 250 ML IVPB SCH ×3 (01:46→16:56)
[2019-01-17 02:00] VITALS: BP 92/57; PULSE 79; RESP 18
[2019-01-17] MEDS: HYDROmorphONE 2 MG/ML SYG IV PRN ×4 (05:37→20:18)
[2019-01-17 07:53] VITALS: BP 129/73; PULSE 87; RESP 16
[2019-01-17] MEDS: ASPIRIN 81 MG TAB PO SCH (08:35)
[2019-01-17] MEDS: CHOLESTYRAMINE 4 GM PACKET PO SCH ×2 (08:35→09:00)
[2019-01-17] MEDS: TOLTERODINE (SR) 2 MG CAP PO SCH (08:35)
[2019-01-17] MEDS: ASCORBIC ACID 500 MG TAB PO SCH (08:35)
[2019-01-17] MEDS: ZINC SULFATE 220 MG CAP PO SCH (08:35)
[2019-01-17] MEDS: DOCUSATE SODIUM 100 MG CAP PO SCH ×2 (08:35→20:40)
[2019-01-17] MEDS: BACLOFEN 10 MG TAB PO SCH ×4 (08:35→20:39)
[2019-01-17] MEDS: GABAPENTIN 300 MG CAP PO SCH ×4 (08:35→20:40)
[2019-01-17] MEDS: CEFEPIME 1GM/50 ML (PMX) 50 ML IVPB SCH ×2 (08:36→20:41)
[2019-01-17] MEDS: oxyCODONE (CR) 10 MG TAB [oxyCONTIN] PO SCH ×2 (08:36→21:20)
--- NOTE | 2019-01-17 11:16 | CONS ---
Assessment/Plan Assessment/Plan Hospital Course (Demo Recall) No events, no fevers Allergy: Augmentin Antimicrobials: Vancomycin, cefepime Indwelling: PICC line Physical examination: Well-nourished well-developed middle-aged white man who is alert in no distress. Head atraumatic normocephalic neck is supple chest rise symmetrical breath sounds clear heart S1-S2 abdomen soft bowel sounds present Assessment: 1. History of flap repair back in November 2018 done at [facility] 2. 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 Neurogenic bladder secondary to paraplegia 4. History of left total knee replacement and hernia repair Plan: Patient remained stable, per surgical recommendations needs to be tx back to [facility], pending arrangements Discussed with patient Consultation Date/Type/Reason Admit Date/Time Jan 12, 2019 at 12:31 Initial Consult Date 01/13/19 Type of Consult id Date/Time of Note DATE: 01/17/19 TIME: 11:13 Exam/Review of Systems Exam Vitals Vital Signs Date Temp Pulse Resp B/P (MAP) Pulse Ox O2 O2 Flow FiO2 Time Delivery Rate 01/17/19 98.2 87 16 129/73 97 07:53 (91) 01/15/19 Room Air 14:42 Intake and Output 01/16/19 01/16/19 01/17/19 1414:59 22:59 06:59 IntakeIntake Total 250 ml 3350 ml 700 ml OutputOutput Total 4300 ml 2500 ml BalanceBalance 250 ml -950 ml -1800 ml Results Result Diagram: 01/15/19 0424 01/15/19 0424 Results 24hrs Laboratory Tests Test 01/16/19 16:37 Vancomycin Level Trough 15.6 Medications Medication Current Medications Vancomycin HCl (Vanco Iv Per Pharmacy) VANCOMYCIN PER PHARMACY PER PROTOCOL XX ; Start 01/12/19 at 13:00 Cefepime HCl 50 ml @ 100 mls/hr Q12 IVPB Last administered on 01/17/19at 08:36; Admin Dose 100 MLS/HR; Start 01/12/19 at 21:00 IV Flush (NS 3 ml) 3 ml PER PROTOCOL IV ; Start 01/12/19 at 13:00 Ondansetron HCl (Zofran Inj) 4 mg Q6H PRN IV NAUSEA/VOMITING; Start 01/12/19 at 13:00 Acetaminophen (Tylenol Tab) 650 mg Q6H PRN PO .PAIN 1-3 OR TEMP; Start 01/12/19 at 13:00 Ascorbic Acid (Vitamin C) 500 mg DAILY PO Last administered on 01/17/19 08:35; Admin Dose 500 MG; Start 01/13/19 at 09:00 Aspirin (Aspirin) 81 mg DAILY PO Last administered on 01/17/19 08:35; Admin Dose 81 MG; Start 01/13/19 at 09:00 Baclofen (Lioresal) 10 mg QID PO Last administered on 01/17/19 08:35; Admin Dose 10 MG; Start 01/12/19 at 13:00 Docusate Sodium (Colace) 100 mg BID PO Last administered on 01/17/19 08:35; Admin Dose 100 MG; Start 01/12/19 at 21:00 Gabapentin (Neurontin) 600 mg QID PO Last administered on 01/17/19 08:35; Admin Dose 600 MG; Start 01/12/19 at 13:00 Tolterodine Tartrate (Detrol La) 2 mg DAILY PO Last administered on 01/17/19 08:35; Admin Dose 2 MG; Start 01/13/19 at 09:00 Zinc Sulfate (Zinc Sulfate) 220 mg DAILY PO Last administered on 01/17/19 08:35; Admin Dose 220 MG; Start 01/13/19 at 09:00 Cholestyramine Resin (Questran) 1 pkt DAILY PO Last administered on 01/16/19 08:26; Admin Dose 1 PKT; Start 01/13/19 at 09:00 Vancomycin HCl 250 ml @ 125 mls/hr Q8H IVPB Last administered on 01/17/19 09:28; Admin Dose 125 MLS/HR; Start 01/12/19 at 17:30 Oxycodone HCl (Oxycontin) 10 mg BID PO Last administered on 01/17/19 08:36; Admin Dose 10 MG; Start 01/12/19 at 21:00 Hydromorphone HCl (Dilaudid) 2 mg Q4 PRN PO PAIN LEVEL 1-3 Last administered on 01/16/19 00:28; Admin Dose 2 MG; Start 01/12/19 at 18:00 Hydromorphone HCl (Dilaudid) 2 mg Q4 PRN IV PAIN LEVEL 6-10 Last administered on 3/6/19at 11:07; Admin Dose 2 MG; Start 01/12/19 at 18:00 Zolpidem Tartrate (Ambien) 10 mg HS PRN PO INSOMNIA Last administered on 01/16/19at 23:37; Admin Dose 10 MG; Start 01/14/19 at 11:30 IVANA REA NP Jan 17, 2019 11:16
[2019-01-17] MEDS ORDERED: IOHEXOL 14.3 MG(I)/ML (ADULT) BTL PO ONE (14:00)
[2019-01-17 14:10] VITALS: BP 111/60; PULSE 83; RESP 16
[2019-01-17 14:39] VITALS: BP 111/60; PULSE 83; RESP 16
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
[2019-01-17] MEDS ORDERED: IOHEXOL 300MG/ML 150 ML BTL ONE (15:12)
[2019-01-17] MEDS ORDERED: SOD CHLORIDE 0.9% 100 ML ONE (15:12)
[2019-01-17 20:49] VITALS: BP 113/63; PULSE 74; RESP 16
[2019-01-18] MEDS: ZOLPIDEM 5 MG TAB PO PRN (00:14)
[2019-01-18] MEDS: VANCOMYCIN 1 GM (PMX) 250 ML IVPB SCH ×3 (01:22→17:34)
[2019-01-18] MEDS: HYDROmorphONE 2 MG/ML SYG IV PRN ×5 (01:28→18:55)
[2019-01-18 02:45] VITALS: BP 92/61; PULSE 62; RESP 16
[2019-01-18] MEDS: HYDROmorphONE 2 MG TAB PO PRN (04:14)
[2019-01-18 08:00] VITALS: BP 118/90; PULSE 100; RESP 18
[2019-01-18] MEDS: DOCUSATE SODIUM 100 MG CAP PO SCH (08:22)
[2019-01-18] MEDS: BACLOFEN 10 MG TAB PO SCH ×3 (08:22→17:34)
[2019-01-18] MEDS: GABAPENTIN 300 MG CAP PO SCH ×3 (08:22→17:34)
[2019-01-18] MEDS: oxyCODONE (CR) 10 MG TAB [oxyCONTIN] PO SCH (08:22)
[2019-01-18] MEDS: ASPIRIN 81 MG TAB PO SCH (08:22)
[2019-01-18] MEDS: ZINC SULFATE 220 MG CAP PO SCH (08:22)
[2019-01-18] MEDS: ASCORBIC ACID 500 MG TAB PO SCH (08:22)
[2019-01-18] MEDS: CHOLESTYRAMINE 4 GM PACKET PO SCH (08:23)
[2019-01-18] MEDS: CEFEPIME 1GM/50 ML (PMX) 50 ML IVPB SCH (08:23)
[2019-01-18] MEDS: TOLTERODINE (SR) 2 MG CAP PO SCH (08:23)
--- NOTE | 2019-01-18 11:00 | CONS ---
Assessment/Plan Assessment/Plan Hospital Course (Demo Recall) No events, looks comfortable, no fevers CT pelvis with contrast: 1. Decubitus ulcer involving the left medial gluteal soft tissues extending to the ischial tuberosity with small soft tissue phlegmon/abscess. 2. Underlying changes of ischial tuberosity osteomyelitis cannot be excluded. Allergy: Augmentin Antimicrobials: Vancomycin, cefepime Indwelling: PICC line Physical examination: Well-nourished well-developed middle-aged white man who is alert in no distress. Head atraumatic normocephalic neck is supple chest rise symmetrical breath sounds clear heart S1-S2 abdomen soft bowel sounds present Assessment: 1. History of flap repair back in November 2018 done at [facility] 2. 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 Neurogenic bladder secondary to paraplegia 4. History of left total knee replacement and hernia repair Plan: Clinically stable, continue abx, per surgical recommendations needs to be tx back to [facility], pending arrangements Consultation Date/Type/Reason Admit Date/Time Jan 12, 2019 at 12:31 Initial Consult Date 01/13/19 Type of Consult id Date/Time of Note DATE: 01/18/19 TIME: 10:58 Exam/Review of Systems Exam Vitals Vital Signs Date Temp Pulse Resp B/P (MAP) Pulse Ox O2 O2 Flow FiO2 Time Delivery Rate 01/18/19 98.8 100 18 118/90 100 08:00 (99) 01/15/19 Room Air 14:42 Intake and Output 01/17/19 01/17/19 01/18/19 1515:00 23:00 07:00 IntakeIntake Total 420 ml 2090 ml 250 ml OutputOutput Total 3500 ml 3000 ml BalanceBalance 420 ml -1410 ml -2750 ml Results Result Diagram: 01/18/19 0426 01/18/19 0426 Results 24hrs Laboratory Tests Test 01/18/19 04:26 White Blood Count 7.0 Red Blood Count 5.37 Hemoglobin 15.5 Hematocrit 46.9 Mean Corpuscular Volume 87.3 Mean Corpuscular Hemoglobin 28.9 L Mean Corpuscular Hemoglobin Concent 33.0 Red Cell Distribution Width 13.5 Platelet Count 209 Mean Platelet Volume 10.2 Immature Granulocytes % 0.300 Neutrophils % 46.5 Lymphocytes % 35.8 Monocytes % 8.4 Eosinophils % 8.0 H Basophils % 1.0 Nucleated Red Blood Cells % 0.0 Immature Granulocytes # 0.020 Neutrophils # 3.3 Lymphocytes # 2.5 Monocytes # 0.6 Eosinophils # 0.6 H Basophils # 0.1 Nucleated Red Blood Cells # 0.0 Erythrocyte Sedimentation Rate 15 Sodium Level 140 Potassium Level 4.4 Chloride Level 106 Carbon Dioxide Level 26 Anion Gap 8 Blood Urea Nitrogen 13 Creatinine 0.59 L Est Glomerular Filtrat Rate mL/min > 60 Glucose Level 89 Calcium Level 9.2 C-Reactive Protein 0.9 Medications Medication Current Medications Vancomycin HCl (Vanco Iv Per Pharmacy) VANCOMYCIN PER PHARMACY PER PROTOCOL XX ; Start 01/12/19 at 13:00 Cefepime HCl 50 ml @ 100 mls/hr Q12 IVPB Last administered on 01/18/19 08:23; Admin Dose 100 MLS/HR; Start 01/12/19 at 21:00 IV Flush (NS 3 ml) 3 ml PER PROTOCOL IV ; Start 01/12/19 at 13:00 Ondansetron HCl (Zofran Inj) 4 mg Q6H PRN IV NAUSEA/VOMITING; Start 01/12/19 at 13:00 Acetaminophen (Tylenol Tab) 650 mg Q6H PRN PO .PAIN 1-3 OR TEMP; Start 01/12/19 at 13:00 Ascorbic Acid (Vitamin C) 500 mg DAILY PO Last administered on 01/18/19 08:22; Admin Dose 500 MG; Start 01/13/19 at 09:00 Aspirin (Aspirin) 81 mg DAILY PO Last administered on 01/18/19 08:22; Admin Dos e 81 MG; Start 01/13/19 at 09:00 Baclofen (Lioresal) 10 mg QID PO Last administered on 01/18/19 08:22; Admin Dose 10 MG; Start 01/12/19 at 13:00 Docusate Sodium (Colace) 100 mg BID PO Last administered on 01/18/19 08:22; Admin Dose 100 MG; Start 01/12/19 at 21:00 Gabapentin (Neurontin) 600 mg QID PO Last administered on 01/18/19 08:22; Admin Dose 600 MG; Start 01/12/19 at 13:00 Tolterodine Tartrate (Detrol La) 2 mg DAILY PO Last administered on 01/18/19 08:23; Admin Dose 2 MG; Start 01/13/19 at 09:00 Zinc Sulfate (Zinc Sulfate) 220 mg DAILY PO Last administered on 01/18/19 08:22; Admin Dose 220 MG; Start 01/13/19 at 09:00 Cholestyramine Resin (Questran) 1 pkt DAILY PO Last administered on 01/16/19 08:26; Admin Dose 1 PKT; Start 01/13/19 at 09:00 Vancomycin HCl 250 ml @ 125 mls/hr Q8H IVPB Last administered on 01/18/19 09:14; Admin Dose 125 MLS/HR; Start 01/12/19 at 17:30 Oxycodone HCl (Oxycontin) 10 mg BID PO Last administered on 01/18/19 08:22; Admin Dose 10 MG; Start 01/12/19 at 21:00 Hydromorphone HCl (Dilaudid) 2 mg Q4 PRN PO PAIN LEVEL 1-3 Last administered on 01/18/19 04:14; Admin Dose 2 MG; Start 01/12/19 at 18:00 Hydromorphone HCl (Dilaudid) 2 mg Q4 PRN IV PAIN LEVEL 6-10 Last administered on 01/18/19 09:51; Admin Dose 2 MG; Start 01/12/19 at 18:00 Zolpidem Tartrate (Ambien) 10 mg HS PRN PO INSOMNIA Last administered on 01/18/19 00:14; Admin Dose 10 MG; Start 01/14/19 at 11:30 IVANA REA NP Jan 18, 2019 11:00
[2019-01-18 14:00] VITALS: BP 116/64; PULSE 76; RESP 18
--- NOTE | 2019-01-18 14:20 | DS ---
Date/Time of Note Date/Time of Note DATE: 01/18/19 TIME: 14:18 Discharge Summary Admission/Discharge Info Admit Date/Time Jan 12, 2019 at 12:31 Discharge Date/Time Discharge Diagnosis Osteomyelitis Patient Condition: Stable Hospital Course Patient found to have imaging suggestive OM and small fluid collection. Transfer to [facility] was attempted but surgeon there preferred to see him as outpatinet. PICC was placed and vanco cefepime were prescribed by ID consultation. IR was consulted to drain the fluid but it was too small and medical management was recommended. Patient was discharged back to SNF to completed 4 more weeks of abx and follow up at [facility]. Home Meds Active Scripts Lactobacillus Rhamnosus GG (Culturelle) 1 Each Capsule, 1 CAP PO BID for 30 Days, #30 CAP Prov:RABIA BARAHONA MD 10/03/18 Reported Medications Lidocaine (Lidoderm) 1 Each Adh..patch, 1 EACH TP DAILY 01/12/19 Zinc Sulfate* (Zinc Sulfate*) 220 Mg Cap, 220 MG PO DAILY, CAP 03/21/18 Ascorbic Acid* (Vitamin C*) 500 Mg Capsule.sa, 500 MG PO DAILY, CAP 03/21/18 Amino Acids/Protein Hydrolys (PRO-STAT LIQUID) 30 Ml Liquid.pkt, 30 ML PO BID 03/21/18 Hydromorphone Hcl* (Dilaudid*) 2 Mg Tablet, 2 MG PO Q4H PRN for PAIN, TAB 03/21/18 Tolterodine Tartrate* (Detrol LA*) 2 Mg Cap.sr.24h, 2 MG PO DAILY, #30 CAP 03/21/18 Docusate Sodium* (Colace*) 100 Mg Capsule, 100 MG PO BID, #60 CAP 03/21/18 Cholestyramine* (Cholestyramine* Powder) 378 Gm Powder, 4 GM PO DAILY, EA 03/21/18 Aspirin* (Aspirin* Chew) 81 Mg Tab.chew, 81 MG PO DAILY, TAB.CHEW 03/21/18 Arginine/Ascorbate Sod/Stevie AC (Arginaid Powder) 1 Each Powd.pack, 1 EACH PO BID 03/21/18 Acetaminophen* (Acetaminophen*) 650 Mg Tablet, 650 MG PO Q4 PRN for PAIN AND OR ELEVATED TEMP, #30 TAB 03/21/18 Hydrocodone/Acetaminophen ([place] 5-325 Tablet) 1 Each Tablet, 2 EACH PO Q6 PRN for SEVERE PAIN LEVEL 7-10, TAB 03/10/18 Polyethylene Glycol* (Miralax*) 17 Gm Powd.pack, 17 GM PO DAILY, #30 PACKET 03/10/18 Baclofen* (Baclofen*) 10 Mg Tablet, 10 MG PO QID, TAB 03/10/18 Gabapentin* (Gabapentin*) 600 Mg Tablet, 600 MG PO QID, #60 TAB 07/26/17 Discontinued Scripts [Pending Collagenase Order] 1 EA EACH No Conflict Check, 0 EA XX PRN PRN for SOILING OF WOUND for 14 Days, #14 Prov:RABIA BARAHONA MD 10/03/18 Primary Care Provider Not On Staff Doctor Pending Labs Laboratory Tests Test 01/18/19 04:26 White Blood Count 7.0 10^3/ul (4.8-10.8) Red Blood Count 5.37 10^6/ul (4.70-6.10) Hemoglobin 15.5 g/dl (14.0-18.0) Hematocrit 46.9 % (42.0-52.0) Mean Corpuscular Volume 87.3 fl (82.0-101.0) Mean Corpuscular Hemoglobin 28.9 pg (29.0-33.0) Mean Corpuscular Hemoglobin Concent 33.0 g/dl (32.0-37.0) Red Cell Distribution Width 13.5 % (11.5-14.5) Platelet Count 209 10^3/UL (140-415) Mean Platelet Volume 10.2 fl (7.4-10.4) Immature Granulocytes % 0.300 % (0.001-0.429) Neutrophils % 46.5 % (39.0-77.0) Lymphocytes % 35.8 % (15.0-51.0) Monocytes % 8.4 % (0.0-11.0) Eosinophils % 8.0 % (0.0-7.0) Basophils % 1.0 % (0.0-2.0) Nucleated Red Blood Cells % 0.0 /100WBC (0.0-0.0) Immature Granulocytes # 0.020 10^3/ul (0.0-0.031) Neutrophils # 3.3 10^3/ul (1.6-7.5) Lymphocytes # 2.5 10^3/ul (0.8-2.9) Monocytes # 0.6 10^3/ul (0.3-0.9) Eosinophils # 0.6 10^3/ul (0.0-0.5) Basophils # 0.1 10^3/ul (0.0-0.1) Nucleated Red Blood Cells # 0.0 10^3/ul (0.0-0.0) Erythrocyte Sedimentation Rate 15 mm/Hr (0-15) Sodium Level 140 mmol/L (135-144) Potassium Level 4.4 mmol/L (3.5-5.1) Chloride Level 106 mmol/L (97-110) Carbon Dioxide Level 26 mmol/L (21-31) Anion Gap 8 (5-13) Blood Urea Nitrogen 13 mg/dl (7-20) Creatinine 0.59 mg/dl (0.61-1.24) Est Glomerular Filtrat Rate mL/min > 60 mL/min (>60) Glucose Level 89 mg/dl (70-220) Calcium Level 9.2 mg/dl (8.4-10.2) C-Reactive Protein 0.9 mg/dl (0.0-0.9) GIACOMO SNELL MD Jan 18, 2019 14:20
[2019-01-18 19:55] VITALS: BP 121/69; PULSE 89; RESP 18
== END 2019-01-18 20:05 | DRG 593 ==
LOC: E/R 11:07 → PP2 12:31
PROVIDERS: ADMIT Internal Medicine; ATTEND Internal Medicine
DX: L89.152 Pressure ulcer of sacral region, stage 2 (principal); M86.18 Other acute osteomyelitis, other site; G82.20 Paraplegia, unspecified; R52 Pain, unspecified
CPT/HCPCS: 36415; 36569; 71045; 72193; 76937; 80048; 80053; 80202; 83036; 83605; 83735; 84100; 85025; 85610; 85651; 85730; 86140; 87040; 87081; 93005; 96374; A4310; J0692; J1170; J2997; J3370; J7030; Q9967